=== PATIENT | male | born 1960 | race Caucasian/White ===

== ENCOUNTER 2016-10-14 15:32 | Inpatient (IN) ==
[2016-10-14 16:23] LABS: Basophils # 0.1 K/mcL (0.0-0.2); Basophils % 0.3 %; Eosinophils # 0.3 K/mcL (0.0-0.6); Eosinophils % 1.2 %; Hematocrit 34.7 % (37.5-50.1); Hemoglobin 11.7 g/dL (12.9-16.9); Immature Granulocytes % 2.2 % (0-4); Lymphocytes # 1.6 K/mcL (0.6-4.6); Mean Corpuscular HGB Conc 33.7 g/dL (31.6-35.5); Mean Corpuscular Hemoglobin 30.1 pg (28.0-33.3); Mean Corpuscular Volume 89.2 fL (83.0-100.0); Mean Platelet Volume 9.3 fL (9.4-12.4); Monocytes # 1.5 K/mcL (0.0-1.3); Monocytes % 6.6 %; Neutrophils # 18.6 K/mcL (1.6-8.9); Platelet Count 395 K/mcL (140-400); Red Blood Count 3.89 M/mcL (4.19-5.50); Red Cell Distribution Width 13.6 % (11.5-14.5); Segmented Neutrophils % 82.7 %
[2016-10-14 16:29] LABS: INR 1.4; Prothrombin Time 15.2 Seconds (9.4-12.1)
[2016-10-14 16:34] LABS: BUN/Creatinine Ratio 21 (6-26); Blood Urea Nitrogen 16 mg/dL (8-26); Calcium 8.8 mg/dL (8.6-10.8); Carbon Dioxide 25 mEq/L (19-29); Chloride 101 mEq/L (98-109); Glucose 139 mg/dL (70-99); Osmolality,Calculated 283 (280-300); Potassium 3.4 mEq/L (3.5-4.5); Sodium 135 mEq/L (136-145); eGFR For African Americans > 60 (> 60); eGFR For Non-African Americans > 60 (> 60)
--- NOTE | 2016-10-14 16:41 | Emergency Department Note ---
Disposition Clinical Impression: Liver masses Abdominal mass Qualifiers: Abdominal location: left lower quadrant Qualified Code(s): R19.04 - Left lower quadrant abdominal swelling, mass and lump Disposition: Admitted As Inpatient Condition: Fair Abdominal Pain HPI - General Chief Complaint: ED Abdominal Pain Stated Complaint: abdominal mass Time Seen by Provider: 10/14/16 15:43 Source: patient - History of Present Illness HPI Narrative: 56 yo male presenting with complaint of belly pain, persistent pain,weightloss, poor oral intake for the past few months. Stated that he saw his primary care physician today who ordered a CAT scan of his abdomen. CAT scan came back that he had a mass, and was directed to come to the ER. Denies any nausea vomiting, diarrhea. Pt Subjective Complaint: abdominal pain Onset (ago): month(s) Consistency: constant Location: [facility] Pain Severity: mild Pain Scale: 2 - Related Data Home Medications Medication Instructions Recorded Confirmed Naproxen [EC-Naprosyn] 500 mg PO BID PRN 10/14/16 10/14/16 Allergies Allergy/AdvReac Type Severity Reaction Status Date / Time No Known Allergies Allergy Verified 05/11/16 10:40 Constitutional: Denies: fever, chills Cardiovascular: Denies: chest pain, palpitations Respiratory: Denies: cough, dyspnea Gastrointestinal: Reports: abdominal pain. Denies: nausea, vomiting, diarrhea Genitourinary: Denies: urgency, dysuria Musculoskeletal: Reports: back pain Abdominal Pain PMH - Past Medical History Medical history: Reports: cancer Male Surgical History: Reports: other Psychiatric history: Reports: no psych history - Social History Smoking status: Current every day smoker Alcohol use: Reports: occasionally Drug use: Reports: none Physical Exam - General Limitations: no limitations General appearance: alert, in no apparent distress - Head Head exam: atraumatic, normocephalic, normal inspection - Eye Eye exam: Present: normal appearance, PERRL, EOMI - Expanded Eye Exam Pupils: Left: reactive - ENT ENT exam: normal exam, normal oropharynx, mucous membranes moist - Expanded ENT Exam External ear exam: Present: normal external inspection Mouth exam: Present: normal external inspection Teeth exam: Present: normal inspection Throat exam: Present: normal inspection - Neck Neck exam: Present: normal inspection, full ROM, trachea midline - Chest Chest inspection: Present: normal inspection, symmetric chest wall rise - Respiratory Respiratory exam: Present: normal lung sounds bilaterally - Cardiovascular Cardiovascular exam: Present: regular rate, normal rhythm, normal heart sounds - Abdominal Exam Abdominal exam: Present: soft, tenderness. Absent: distention, guarding, rebound, rigidity - Extremities Exam Extremities exam: Present: normal inspection, full ROM. Absent: tenderness, pedal edema - Expanded Upper Extremity Exam Vascular exam: Normal: capillary refill, radial pulse - Expanded Lower Extremity Exam Neurovascular/Tendon exam: Absent: motor deficit, sensory deficit, tendon deficit - Back Exam Back exam: Present: normal inspection, full ROM. Absent: tenderness - Neurological Exam Neurological exam: Present: alert, oriented X3 - Expanded Neurological Exam Patient oriented to: Present: person, place, time Coma Scale Eye Opening: Spontaneous Coma Scale Motor Response: Obeys Commands Coma Scale Verbal Response: Oriented Coma Scale Total: 15 - Psychiatric Psychiatric exam: Present: normal affect, normal mood - Skin Skin exam: Present: warm, dry, intact, normal color Course Course Narrative: Patient presenting with complaint of left/epigastric abdominal pain on exam, stated that his symptoms for the past 2 months. He is also reported history of weight loss; patient abdomen is distended but is not acute. CAT scan ordered by a primary care physician shows probable colon cancer with metastases to the liver, and probable contained perforation. Patient is mentally intact, stable in the ED, afebrile; as noted previously abdomen is nonacute. We will get basic labs, IV antibiotics and contact surgery. - Reevaluation(s) Reevaluation #1: Pt admitted to surgery for tx Dr. WHITLOCK saw pt in the ED, wants admitted to A tele Vital Signs Temperature 98.0 F 10/14/16 15:37 Pulse Rate 111 10/14/16 15:37 Respiratory Rate 18 10/14/16 15:37 Blood Pressure 116/73 10/14/16 15:37 O2 Sat by Pulse Oximetry 97 10/14/16 15:37 Temperature 97.9 F 10/16/16 06:31 Pulse Rate 84 10/16/16 06:31 Respiratory Rate 16 10/16/16 06:31 Blood Pressure 105/61 10/16/16 06:31 O2 Sat by Pulse Oximetry 98 10/16/16 08:48 Oxygen Delivery Oxygen Delivery Room Air Abdominal Pain - Lab Data Result diagrams: 10/16/16 04:34 10/16/16 04:34 Lab Results 10/14/16 10/14/16 10/14/16 Range/Units 16:11 16:11 16:11 WBC 22.6 H (4.3-11.1) K/mcL RBC 3.89 L (4.19-5.50) M/mcL Hgb 11.7 L (12.9-16.9) g/dL Hct 34.7 L (37.5-50.1) % MCV 89.2 (83.0-100.0) fL MCH 30.1 (28.0-33.3) pg MCHC 33.7 (31.6-35.5) g/dL RDW 13.6 (11.5-14.5) % Plt Count 395 (140-400) K/mcL MPV 9.3 L (9.4-12.4) fL Immature Gran % 2.2 (0-4) % Seg Neutrophils % 82.7 % Lymphocytes % 7.0 % Monocytes % 6.6 % Eosinophils % 1.2 % Basophils % 0.3 % Neutrophils # 18.6 H (1.6-8.9) K/mcL Lymphocytes # 1.6 (0.6-4.6) K/mcL Monocytes # 1.5 H (0.0-1.3) K/mcL Eosinophils # 0.3 (0.0-0.6) K/mcL Basophils # 0.1 (0.0-0.2) K/mcL PT 15.2 H (9.4-12.1) Seconds INR 1.4 APTT 29.0 (26.0-36.0) Seconds Sodium 135 L (136-145) mEq/L Potassium 3.4 L (3.5-4.5) mEq/L Chloride 101 (98-109) mEq/L Carbon Dioxide 25 (19-29) mEq/L BUN 16 (8-26) mg/dL Creatinine 0.77 (0.72-1.25) mg/dL Est GFR ( Amer) > 60 (> 60) Est GFR (Non-Af Amer) > 60 (> 60) BUN/Creatinine Ratio 21 (6-26) Glucose 139 H (70-99) mg/dL Calculated Osmolality 283 (280-300) Lactic Acid (0.5-2.2) mmol/L Calcium 8.8 (8.6-10.8) mg/dL Phosphorus (2.3-4.7) mg/dL Magnesium (1.6-2.6) mg/dL Total Bilirubin (0.2-1.2) mg/dL Direct Bilirubin (0.0-0.5) mg/dL Indirect Bilirubin (0.0-1.2) mg/dL AST (5-34) Units/L ALT (0-55) Units/L Alkaline Phosphatase (38-126) Units/L Troponin I (0-0.03) ng/mL Serum Total Protein (6.0-8.3) g/dL Albumin (3.5-5.0) g/dL Globulin (2.4-3.5) g/dL Albumin/Globulin Ratio (1.1-2.2) 10/14/16 10/14/16 10/14/16 Range/Units 17:48 17:48 17:48 WBC (4.3-11.1) K/mcL RBC (4.19-5.50) M/mcL Hgb (12.9-16.9) g/dL Hct (37.5-50.1) % MCV (83.0-100.0) fL MCH (28.0-33.3) pg MCHC (31.6-35.5) g/dL RDW (11.5-14.5) % Plt Count (140-400) K/mcL MPV (9.4-12.4) fL Immature Gran % (0-4) % Seg Neutrophils % % Lymphocytes % % Monocytes % % Eosinophils % % Basophils % % Neutrophils # (1.6-8.9) K/mcL Lymphocytes # (0.6-4.6) K/mcL Monocytes # (0.0-1.3) K/mcL Eosinophils # (0.0-0.6) K/mcL Basophils # (0.0-0.2) K/mcL PT (9.4-12.1) Seconds INR APTT (26.0-36.0) Seconds Sodium (136-145) mEq/L Potassium (3.5-4.5) mEq/L Chloride (98-109) mEq/L Carbon Dioxide (19-29) mEq/L BUN (8-26) mg/dL Creatinine (0.72-1.25) mg/dL Est GFR ( Amer) (> 60) Est GFR (Non-Af Amer) (> 60) BUN/Creatinine Ratio (6-26) Glucose (70-99) mg/dL Calculated Osmolality (280-300) Lactic Acid 1.0 (0.5-2.2) mmol/L Calcium (8.6-10.8) mg/dL Phosphorus 3.5 (2.3-4.7) mg/dL Magnesium 1.9 (1.6-2.6) mg/dL Total Bilirubin 2.4 H (0.2-1.2) mg/dL Direct Bilirubin 1.8 H (0.0-0.5) mg/dL Indirect Bilirubin 0.6 (0.0-1.2) mg/dL AST 23 (5-34) Units/L ALT 32 (0-55) Units/L Alkaline Phosphatase 408 H (38-126) Units/L Troponin I 0.01 (0-0.03) ng/mL Serum Total Protein 6.1 (6.0-8.3) g/dL Albumin 2.0 L (3.5-5.0) g/dL Globulin 4.1 H (2.4-3.5) g/dL Albumin/Globulin Ratio 0.5 L (1.1-2.2)
[2016-10-14] MEDS ORDERED: Piperacillin/Tazobactam 4.5 GM in D5% in Water (Mini-Bag+) 100 ML IVPB ONE (16:43)
--- NOTE | 2016-10-14 17:07 | Emergency Department Note ---
START Narrative - START START: I examined this patient and my medical decision-making was reviewed with the FLEX O WRITER OPERATOR/PA/Advanced Practice Nurse/Resident Physician. I agree with the documented findings, disposition and treatment plan as described except to the extent set forth below. Patient to the emergency department with a chief complaint of Misha pain. He saw his primary care physician who ordered an outpatient CT. It showed a mass and a possible perforation. He sent in for admission. On exam he has left lower quadrant tenderness. Plan. Patient tachycardic. Elevated white blood cell count mid-twenties. He meets sepsis criteria. Kasandrasyn ordered. Surgery consult and admission. Patient received surgery consult on department. Admitted to their service.
[2016-10-14] MEDS: 0.9 % Sodium Chloride 1,000 ML IVC SCH ×3 (17:36→20:43)
[2016-10-14] MEDS ORDERED: Nicotine 7 MG PATCH.TD24 TD SCH (18:00)
[2016-10-14 18:15] LABS: Albumin/Globulin Ratio 0.5 (1.1-2.2); Bilirubin,Direct 1.8 mg/dL (0.0-0.5); Bilirubin,Indirect 0.6 mg/dL (0.0-1.2); Bilirubin,Total 2.4 mg/dL (0.2-1.2); Globulin 4.1 g/dL (2.4-3.5); Magnesium 1.9 mg/dL (1.6-2.6); Phosphorous 3.5 mg/dL (2.3-4.7); Total Protein 6.1 g/dL (6.0-8.3)
[2016-10-14] MEDS ORDERED: *HR* LORazepam 2 MG/ML VIAL IVP PRN (20:05)
[2016-10-14] MEDS ORDERED: Naloxone 0.4 MG/ML INJ IVP PRN (20:05)
[2016-10-14] MEDS ORDERED: *HR* Metoprolol 5 MG/5 ML VIAL IVP PRN (20:05)
[2016-10-14] MEDS ORDERED: Ondansetron 4 MG/2 ML VIAL IVP PRN (20:05)
[2016-10-14] MEDS: *HR* Heparin 5,000 UNIT/ML VIAL SQ SCH (23:18)
[2016-10-14] MEDS: Piperacillin/Tazobactam 3.375 GM in D5% in Water (Mini-Bag+) 100 ML IVPB SCH (23:18)
[2016-10-15] MEDS ORDERED: *HR* Metoprolol 5 MG/5 ML VIAL IVP SCH
[2016-10-15 05:13] LABS: Basophils % 0.2 %; Eosinophils # 0.2 K/mcL (0.0-0.6); Eosinophils % 0.9 %; Hematocrit 33.3 % (37.5-50.1); Immature Granulocytes % 1.6 % (0-4); Lymphocytes # 1.5 K/mcL (0.6-4.6); Lymphocytes % 7.6 %; Mean Corpuscular Hemoglobin 29.4 pg (28.0-33.3); Mean Platelet Volume 9.8 fL (9.4-12.4); Monocytes # 1.1 K/mcL (0.0-1.3); Monocytes % 5.5 %; Neutrophils # 16.6 K/mcL (1.6-8.9); Platelet Count 417 K/mcL (140-400); Red Blood Count 3.74 M/mcL (4.19-5.50); Red Cell Distribution Width 13.8 % (11.5-14.5); Segmented Neutrophils % 84.2 %
[2016-10-15 05:20] LABS: BUN/Creatinine Ratio 11 (6-26); Blood Urea Nitrogen 7 mg/dL (8-26); Calcium 8.3 mg/dL (8.6-10.8); Carbon Dioxide 20 mEq/L (19-29); Chloride 108 mEq/L (98-109); Glucose 101 mg/dL (70-99); Magnesium 1.9 mg/dL (1.6-2.6); Osmolality,Calculated 280 (280-300); Phosphorous 2.7 mg/dL (2.3-4.7); Sodium 136 mEq/L (136-145); eGFR For African Americans > 60 (> 60); eGFR For Non-African Americans > 60 (> 60)
[2016-10-15 05:41] LABS: Carcinoembryonic Antigen 3.2 ng/mL (0-5.0)
[2016-10-15] MEDS: *HR* Morphine 2 MG/ML SYRINGE IVP PRN ×4 (06:05→15:30)
[2016-10-15] MEDS: Piperacillin/Tazobactam 3.375 GM in D5% in Water (Mini-Bag+) 100 ML IVPB SCH ×2 (08:44→16:23)
[2016-10-15] MEDS: 0.9 % Sodium Chloride 1,000 ML IVC SCH ×2 (08:44→23:02)
[2016-10-15] MEDS: *HR* Heparin 5,000 UNIT/ML VIAL SQ SCH ×2 (08:45→16:22)
[2016-10-15] MEDS ORDERED: Nicotine 7 MG PATCH.TD24 TD SCH (09:00)
[2016-10-15] MEDS ORDERED: Pantoprazole 40 MG VIAL IVP SCH (09:00)
--- NOTE | 2016-10-15 09:05 | Oncology Inp Consult Note ---
Date of Encounter: 10/15/16 Time of Encounter: 07:00 Assessment and Plan (1) Abdominal mass Status: Acute Assessment and plan: Patient with sigmoid colon mass likely colon cancer with what appears to be liver metastatic disease. Due to contained perforation/inflammation-he is being scheduled for OR procedure today for palliative resection/colostomy. Clinically he appears to be stable. Will await pathology, discussed systemic treatment briefly with patient and family. On IV abx, leucocytosis-reactive/ infection. Hgb/Hct reasonable. Pain is fairly controlled with medications. Ct chest for completion of staging. Qualifiers: Abdominal location: left lower quadrant Qualified Code(s): R19.04 - Left lower quadrant abdominal swelling, mass and lump - Data of Consult Requesting Physician: Caitie Guaman MD Primary Care Provider: Alicja Aguila CNP - Consult Narrative Reason for consult: Sigmoid mass, liver lesions History of present illness: Mr. Covarrubias is a 56 year old male with medical history significant for right shoulder surgery for rotator cuff tear, arthritis, status post excision of cyst diagnosed with full-thickness skin graft closure in 2010-[facility], but the sigmoid colon mass and abnormal imaging report in the liver which was performed on 10/14 due to to make radiation abdominal discomfort as well as vomiting. He denies any rectal bleeding or constipation. Abdominal pain is mostly in the lower quadrant patient also reported a few days history of this but none recently was seen by PCP and hospitalized at abnormal CT imaging findings. Father had cancer of throat, sibling brain tumor. CT imaging abd 10/14/16- the sigmoid colon mass upto 3.2cm length suspected perforation due to extraluminal contrast/fluid collection?abcess and inflammatory changes extending bladder. Diverticulosis. Hepatic mets -rt sided largest upto 4.9cm He had abd tenderness localized and leucocytosis on Zosyn for contain perforation wo obvious signs of peritonitis. Patient reports no other symptoms except as noted above. Past Med Surg Social Fam HX - Past Medical History Medical history: cancer Psychiatric history: no psych history - Social History Smoking Status: Current every day smoker Packs per day: 1 Smokeless Tobacco Status: No Alcohol use: occasionally Drug use: none - Family History Grandmother History Unknown: Yes Medications and Allergies Naproxen [EC-Naprosyn] 500 mg PO BID PRN 10/14/16 [History] Allergies No Known Allergies Allergy (Verified 05/11/16 10:40) Review of systems: as in HPI Oncology - Exam - Constitutional Vitals: Temp Pulse Resp BP Pulse Ox 97.9 F 85 16 110/59 94 L 10/15/16 07:43 10/15/16 07:43 10/15/16 07:43 10/15/16 07:43 10/15/16 07:43 General appearance: no acute distress - Head Head exam: Present: atraumatic, normal inspection - Eye Eye exam: Present: sclera anicteric - ENT ENT exam: Present: mucous membranes moist - Neck Neck exam: Present: full ROM, normal inspection - Respiratory Respiratory exam: Present: CTAB - Cardiovascular Cardiovascular exam: Present: +S1, +S2 - GI/Abdominal GI/Abdominal exam: Present: soft Additional comments: non tender. NBS - Extremities Exam Additional comments: no pedal edema warm pulses+ - Neurological Exam Neurological exam: Present: alert, oriented X3 - Psychiatric Psychiatric exam: Present: normal affect Oncology - Results - Labs Labs: Short CBC 10/15/16 Range/Units 04:19 WBC 19.7 H (4.3-11.1) K/mcL Hgb 11.0 L (12.9-16.9) g/dL Hct 33.3 L (37.5-50.1) % Plt Count 417 H (140-400) K/mcL Neutrophils # 16.6 H (1.6-8.9) K/mcL BMP 10/15/16 04:19 Sodium 136 Potassium 4.0 Chloride 108 Carbon Dioxide 20 BUN 7 L Creatinine 0.65 L Glucose 101 H Calcium 8.3 L - Imaging and Cardiology CT scan - abdomen Status: image reviewed by me Consult Discharge Plan - Plan Referrals: Alicja Aguila, [employer] [Primary Care Provider] -
--- NOTE | 2016-10-15 10:28 | Electrocardiograph Report ---
[facility] Test Date: 2016-10-14 Pat Name: Jimbo Covarrubias Department: 103 Room: 3A47 Gender: M [employer] Rep: LEN : 1960 Requested By: Marianne See Order Number: [id number] Reading MD: Robert Gautam MD Measurements Intervals [place] Rate: 99 P: 65 IL: 125 QRS: -57 QRSD: 92 T: 56 QT: 345 QTc: 402 Interpretive Statements SINUS RHYTHM LEFT ANTERIOR FASCICULAR BLOCK Electronically Signed On 10-15-16 10:26:57 EST by Robert Gautam MD
--- NOTE | 2016-10-15 13:00 | General Surg History&Physical ---
Date of Encounter: 10/14/16 Time of Encounter: 17:30 Assessment and Plan (1) Perforated sigmoid colon Current Visit: Yes Status: Acute The assessment and plan as outlined above was discussed with the patient and/or family members who expressed understanding and agreement. All questions were answered. CAT scan results were discussed with the patient and his . Discussed that the CT scan appears to show us mass, likely malignant, in the sigmoid colon with signs of perforation including air and contrast within the abdominal cavity but contained. He has diverticulosis of the colon as well but does not appear to have diverticulitis at this time. I discussed that it is most likely that a sigmoid colon tumor has perforated and unfortunately these do not heal on their own but must be resected. Currently his abdominal pain is not significant, he is soft but tender and is not peritoneal. He will be admitted, started on IV antibiotics, kept nothing by mouth with bowel rest, and IV pain control began. We will reassess in the morning and discuss Sheila procedure at that time. (2) Neoplasm of sigmoid colon Current Visit: Yes Status: Acute The assessment and plan as outlined above was discussed with the patient and/or family members who expressed understanding and agreement. All questions were answered. CT scan results were discussed with the patient is , they understand that it appears there is a perforated sigmoid tumor with metastatic lesions to the colon. Will order CEA and called, oncology. (3) Tobacco abuse Current Visit: Yes Status: Acute The assessment and plan as outlined above was discussed with the patient and/or family members who expressed understanding and agreement. All questions were answered. Start nicotine patch (4) Leukocytosis Current Visit: Yes Status: Acute The assessment and plan as outlined above was discussed with the patient and/or family members who expressed understanding and agreement. All questions were answered. Leukocytosis is due to the perforated sigmoid tumor. We will start IV antibiotics and 10 white blood cell count. Qualifiers: Leukocytosis type: unspecified Qualified Code(s): D72.829 - Elevated white blood cell count, unspecified (5) Liver masses Current Visit: Yes Status: Acute The assessment and plan as outlined above was discussed with the patient and/or family members who expressed understanding and agreement. All questions were answered. Discussed with the patient is that his CT scan appears to have metastatic disease within the liver, primarily right-sided. He will need a liver biopsy at some point. History of Present Illness Chief complaint: abdominal pain HPI: Mr. Covarrubias is a 56 year old male who complains of approximately 3 weeks left to mid abdominal pain. He describes his abdominal pain is crampy and constant, it never stops. He has had nausea and vomiting daily anywhere from 1-3 episodes per day. He has had a decrease in appetite and by mouth intake secondary to the nausea and vomiting. He has had attended 12 pound weight loss over the last 3 weeks. He complains of a significant amount of sweats and chills but no obvious fevers. His last bowel movement was this morning and he denies any significant straining and no melena or hematochezia. The patient has never had a colonoscopy knee is no family history of colon cancer. He presented to his PCPs office with the complaint of abdominal pain and was referred for an outpatient CT scan. Is performed demonstrating multiple findings and was called and told to present to the ER by the PCP. CT scan of the abdomen and pelvis shows a sigmoid colon mass with contained perforation- with air and contrast. He appears to have masses within the liver consistent with metastatic disease. 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 Past Med Surg Social Fam HX - Past Medical History Source: patient Medical history: cancer (right nasal skin cancer) Psychiatric history: no psych history - Past Surgical History Surgical History: orthopedic, other (right rotator cuff repair, right carpal tunnel release), other (rigth nasal cancer resection) - Social History Smoking Status: Current every day smoker Packs per day: 1 Smokeless Tobacco Status: No Alcohol use: occasionally Drug use: none - Family History Grandmother History Unknown: Yes Medications and Allergies Naproxen [EC-Naprosyn] 500 mg PO BID PRN 10/14/16 [History] Allergies No Known Allergies Allergy (Verified 05/11/16 10:40) Review of Systems All systems PM: reviewed and no additional remarkable complaints except as stated All systems PM: A 10-system review of systems was performed and is negative for pertinent findings except as documented above in the HPI. General Surgery Exam Initial Vital Signs Temp Pulse Resp BP Pulse Ox 98.0 F 111 18 116/73 97 10/14/16 15:37 10/14/16 15:37 10/14/16 15:37 10/14/16 15:37 10/14/16 15:37 - General physical appearance moderate distress, moderate pain, cachectic - Eyes PERRL, normal ocular movement - ENT atraumatic, normocephalic - Neck trachea midline - Respiratory normal expansion, clear to auscultation - Cardiovascular Cardiovascular exam: Present: RRR, no murmurs/rubs/gallops - Abdomen Abdomen general surgery: Present: bowel sounds present, soft, tender ( midabdomen and LLQ, no rebound or guarding) - Integumentary Integumentary general surgery: Present: warm and dry, no abnormal pigmentation - Neurologic Present: CN 2-12 grossly intact - Musculoskeletal Present: normal posture - Psychiatric Psychiatric general surgery: Present: A&Ox3, speech is normal Results - Labs 10/15/16 04:19 10/15/16 04:19 Abnormal lab results WBC 19.7 K/mcL (4.3-11.1) H 10/15/16 04:19 RBC 3.74 M/mcL (4.19-5.50) L 10/15/16 04:19 Hgb 11.0 g/dL (12.9-16.9) L 10/15/16 04:19 Hct 33.3 % (37.5-50.1) L 10/15/16 04:19 Plt Count 417 K/mcL (140-400) H 10/15/16 04:19 Neutrophils # 16.6 K/mcL (1.6-8.9) H 10/15/16 04:19 PT 15.2 Seconds (9.4-12.1) H 10/14/16 16:11 BUN 7 mg/dL (8-26) L 10/15/16 04:19 Creatinine 0.65 mg/dL (0.72-1.25) L 10/15/16 04:19 Glucose 101 mg/dL (70-99) H 10/15/16 04:19 POC Glucose 103 (58-89) H 10/15/16 05:02 Calcium 8.3 mg/dL (8.6-10.8) L 10/15/16 04:19 Total Bilirubin 2.4 mg/dL (0.2-1.2) H 10/14/16 17:48 Direct Bilirubin 1.8 mg/dL (0.0-0.5) H 10/14/16 17:48 Alkaline Phosphatase 408 Units/L (38-126) H 10/14/16 17:48 Albumin 2.0 g/dL (3.5-5.0) L 10/14/16 17:48 Globulin 4.1 g/dL (2.4-3.5) H 10/14/16 17:48 Albumin/Globulin Ratio 0.5 (1.1-2.2) L 10/14/16 17:48 Diabetes panel 10/15/16 Range/Units 04:19 Sodium 136 (136-145) mEq/L Potassium 4.0 (3.5-4.5) mEq/L Chloride 108 (98-109) mEq/L Carbon Dioxide 20 (19-29) mEq/L BUN 7 L (8-26) mg/dL Creatinine 0.65 L (0.72-1.25) mg/dL Glucose 101 H (70-99) mg/dL Calcium 8.3 L (8.6-10.8) mg/dL Calcium panel 10/15/16 Range/Units 04:19 Calcium 8.3 L (8.6-10.8) mg/dL Phosphorus 2.7 (2.3-4.7) mg/dL Pituitary panel 10/15/16 Range/Units 04:19 Sodium 136 (136-145) mEq/L Potassium 4.0 (3.5-4.5) mEq/L Chloride 108 (98-109) mEq/L Carbon Dioxide 20 (19-29) mEq/L BUN 7 L (8-26) mg/dL Creatinine 0.65 L (0.72-1.25) mg/dL Glucose 101 H (70-99) mg/dL Calcium 8.3 L (8.6-10.8) mg/dL Adrenal panel 10/15/16 Range/Units 04:19 Sodium 136 (136-145) mEq/L Potassium 4.0 (3.5-4.5) mEq/L Chloride 108 (98-109) mEq/L Carbon Dioxide 20 (19-29) mEq/L BUN 7 L (8-26) mg/dL Creatinine 0.65 L (0.72-1.25) mg/dL Glucose 101 H (70-99) mg/dL Calcium 8.3 L (8.6-10.8) mg/dL All other labs normal. - Imaging CT scan - abdomen: report reviewed, image reviewed CT scan - pelvis: report reviewed, image reviewed
--- NOTE | 2016-10-15 15:42 | Anesthesia Evaluation PreOp ---
Date of Encounter: 10/15/16 Time of Encounter: 15:40 - Past History Planned Operation: ex lap caro's/perf sigmoid colon Cardiac History: Denies any Significant Hx Pulmonary History: Smoker, Snore Other Medical History: Hepatic (liver masses), Other (sigmoid mass) Anesthesia History: No Prior Anesthetic Complications, Past Anesthesia (rcr, rctr, r nasal rsxn (skin ca)) Alcohol Use: occasionally Drug use: none Medications and Allergies Naproxen [EC-Naprosyn] 500 mg PO BID PRN 10/14/16 [History] Allergies No Known Allergies Allergy (Verified 05/11/16 10:40) - Meds/Allergy Pre-op Review Medications Reviewed: Yes (zosyn next dose at 20:50) Allergies Reviewed: Yes Beta Blockers on Current Med List: No Anesthesia Results - Labs 10/15/16 04:19 10/15/16 04:19 - Imaging EKG: report reviewed (, crescencio) Anesthesia Exam Height: 1.63 Weight: 61 NPO (# of Hours): >8 - HEENT Pupil (Motor): Pupils equal, EOMI Mallampati: I Teeth: Poor dentition Oral Opening: Greater than 3 - PROGRAM DIRECTOR LOC: Oriented PROGRAM DIRECTOR Motor: Normal RUE, Normal LUE, Normal RLE, Normal LLE, Normal Face PROGRAM DIRECTOR Sensory: Normal: RUE, LUE, RLE, LLE, Face - Cardiac Rhythm: Regular Murmur: None - Pulmonary Breath Sounds: bilateral Clear Respiratory Effort: Symmetrical Anesthesia Assess/Plan ASA Score: 3 (cancer) Modified Dayanna Scale for Level of Consciousness: Cooperative, oriented, and tranquil Anesthetic Plan: General Monitoring Plan: Standard Monitors Recovery Plan: PACU
[2016-10-15] MEDS ORDERED: *HR* Propofol 200 MG/20 ML VIAL IVP ONE (16:43)
[2016-10-15] MEDS ORDERED: *HR* FentaNYL (PF) 100 MCG/2 ML VIAL ONE ×2 (16:43→17:36)
[2016-10-15] MEDS ORDERED: Ondansetron 4 MG/2 ML VIAL ONE (16:45)
[2016-10-15] MEDS ORDERED: Lidocaine -MPF 2% 2 ML VIAL ONE (16:45)
[2016-10-15] MEDS ORDERED: Dexamethasone 4 MG/ML VIAL ONE (16:45)
[2016-10-15] MEDS ORDERED: *HR* Rocuronium Bromide 50 MG/5 ML VIAL ONE ×2 (16:46→18:04)
[2016-10-15] MEDS ORDERED: Propofol 500 MG/50 ML INFUS..BTL ONE ×2 (16:52→18:27)
[2016-10-15] MEDS ORDERED: Albumin Human 5% 0 GM/0 ML VIAL ONE (16:55)
[2016-10-15] MEDS ORDERED: Dexmedetomidine HCl 200 MCG/50 ML MLS IVC ONE (16:56)
[2016-10-15] MEDS ORDERED: Lidocaine -MPF 4% 5 ML AMPUL ONE (17:14)
[2016-10-15] MEDS ORDERED: *HR* Phenylephrine 10 MG/ML VIAL ONE (17:38)
[2016-10-15] MEDS ORDERED: *HR* Remifentanil 2 MG VIAL IVP ONE (17:53)
[2016-10-15] MEDS ORDERED: *HR* Promethazine 25 MG/ML VIAL IVP PRN (18:22)
[2016-10-15] MEDS ORDERED: *HR* HYDROmorphone (PF) 1 MG/ML SYRINGE IVP PRN (18:22)
[2016-10-15] MEDS ORDERED: Neostigmine Methylsulfate 3 MG/3 ML SYRINGE ONE (19:15)
--- NOTE | 2016-10-15 19:52 | Operative Note ---
Date of procedure: 10/15/16 Pre-op diagnosis: perforated sigmoid colon mass Post-op diagnosis: same Procedure: Exploratory laparotomy, takedown splenic flexure, sigmoid resection, colostomy, appendix Complications: none immediate Anesthesia: ALFREDO Surgeon: Caitie Guaman Scientific Database Curator: Lara Brewer Estimated blood loss (cc): 30 IV fluids (cc): 1,400 Urine output (cc): 275 Specimen: sigmoid colon, appendix Condition: stable Disposition: PACU Procedure in Detail: Patient was brought to the operating suite and placed supine on the operating table. Sign in was performed and everyone was in agreement. Anesthesia was induced and patient was endotracheally intubated by anesthesia without incident. A Andrade catheter was placed by the circulating nurse and an NG tube was placed by anesthesia. The abdomen was shaved and then prepped and draped in the usual sterile fashion. A timeout was performed again everyone was in agreement. A midline incision through the skin and the subcutaneous tissue around the umbilicus was made with 15 blade. We dissected through the subcutaneous tissue through the linea alba fascia with the Bovie. Bookwalter was placed for retraction. There was a hard firm sigmoid colon mass which was densely adherent to the left lateral abdominal wall at their also 2 separate loops of small bowel that were densely adherent to this mass as well. Using Metzenbaum scissors the 2 loops of small bowel were sharply taken down off the mass. An abscess was encountered and pus was present in the abscess, which was suctioned free from the abdomen. The sigmoid colon mass was taken down off the intra-abdominal wall sharply with Metzenbaum scissors and with the Bovie. At the left lateral abdominal wall the colon was taken down at the white line of Toldt with the Bovie coming down around over the iliacs down to the rectum. The left ureter was identified. An area at the distal left colon was chosen for transection and an opening in the mesentery beneath the colon was made with the Bovie. The colon was then transected with a linear BERKLEY-75 stapler using a blue load. The mesial colon was then taken down including the left colic vessels with the impact LigaSure and a proximal distal direction down to the proximal rectum. The proximal rectum was transected with a contour stapler blue load. The specimen was placed off to the back table for pathology and the distal sigmoid proximal rectum was marked with a stitch. The proximal rectum that remained within the pelvis was marked with a 2-0 Prolene [id number] stitch. The left colon was continued to be taken off the left lateral abdominal wall at the white line of Toldt using gentle blunt dissection and the Bovie and the splenic flexure was then taken down with the Bovie. This provided adequate length for the left colon to create the colostomy. The abdomen was copiously irrigated with sterile saline. The appendix was located and a right angle was placed beneath the appendix at the base of the cecum creating an opening in the mesentery. The appendix was transected at the base of the cecum within linear BERKLEY-75 stapler using a blue load. The mesoappendix was transected with the impact LigaSure. Prior to surgery the patient was marked for potential colostomy placement while sitting in a bed. The inferior previously marked potential colostomy site was chosen to create the colostomy. Kockers are placed on the left lateral abdominal wall linea alba fascia for retraction. A circular incision through the skin and the subcutaneous tissue was made with a 15 blade above the left lateral rectus. The Bovie was used to dissect the skin off the subcutaneous tissue. Longitudinal incision in the anterior rectus fascia was made with a Bovie and the rectus muscle fibers split in the direction of the fibers with a Talya, which then punctured through the posterior rectus sheath. The newly created opening in the rectus was gently manipulated to 2 fingers breaths. The left colon was then pulled through the opening in the rectus with a [place]illa. There was adequate length for the colostomy. The abdominal wall at the midline was closed with 2 separate #1 non- looped running PDS stitches meeting in the middle. The subcutaneous tissue was copiously irrigated with sterile saline. The skin was then closed with balbir. We then turned our attention to fashioning the ostomy. Sterile towels were placed around the left abdomen. Babcocks were placed across the left colon staple line and the staple line transected with heavy curved Metzenbaums. There was copious bleeding from the cut edge which was stopped with the Bovie. The colostomy was fashioned with 3-0 Vicryl interrupted stitches ensuring full thickness of the colon wall to the subcutaneous tissue, circumferentially. A colostomy faceplate and bag was placed. Sterile 4 x 4's and Medipore tape were placed as a midline dressing. All lap and instrument counts were correct at the end of the case. The patient tolerated the procedure well. Patient was awoken in the operating suite and extubated by anesthesia. The Andrade catheter and NG tube remained. Patient was taken to PACU in stable condition.
[2016-10-15] MEDS ORDERED: Ringers Solution, Lactated 1,000 ML ONE (20:22)
[2016-10-15] MEDS ORDERED: *HR* HYDROmorphone 2 MG/ML SYRINGE ONE (20:29)
--- NOTE | 2016-10-15 20:30 | Anesthesia Evaluation Post Op ---
Date of Encounter: 10/15/16 Time of Encounter: 20:35 - Vital Signs Vital Signs: Vital Signs/O2 Sat/Glucose, Most Current Temp Pulse Resp BP Pulse Ox 10/15/16 20:28 106 16 95 10/15/16 20:18 98.5 F 103 16 130/82 94 L 10/15/16 20:08 104 16 133/79 95 10/15/16 19:58 100 16 122/79 96 10/15/16 19:48 98.4 F 92 16 129/75 100 - Lungs Lungs: Clear Ascult./Percussion - Airway Airway: Non-obstructed - Cardiovascular Regular Rate - Mental Status Mental Status: Alert & Oriented, Answers Appropriately - Pain Pain Scale: 0 - Nausea Vomiting Nausea Vomiting: Not Present - Hydration Hydration: NPO - Discharge PostOp Status: Transfer Patient to floor
[2016-10-15] MEDS ORDERED: *HR* Metoprolol 5 MG/5 ML VIAL IVP PRN (20:34)
[2016-10-15] MEDS ORDERED: Naloxone 0.4 MG/ML INJ IVP PRN (20:34)
[2016-10-15] MEDS ORDERED: Ondansetron 4 MG/2 ML VIAL IVP PRN (20:34)
[2016-10-15] MEDS ORDERED: Promethazine 25 MG in 0.9 % Sodium Chloride 50 ML IV PRN (20:34)
[2016-10-15] MEDS: *HR* HYDROmorphone 20 MG/20 ML PCA IVC PRN (21:34)
[2016-10-16] MEDS: Piperacillin/Tazobactam 3.375 GM in D5% in Water (Mini-Bag+) 100 ML IVPB SCH ×3 (00:09→15:24)
[2016-10-16] MEDS: *HR* Heparin 5,000 UNIT/ML VIAL SQ SCH ×3 (00:09→15:23)
[2016-10-16 05:17] LABS: Basophils # 0.1 K/mcL (0.0-0.2); Basophils % 0.2 %; Hematocrit 35.5 % (37.5-50.1); Hemoglobin 11.2 g/dL (12.9-16.9); Immature Granulocytes % 2.5 % (0-4); Lymphocytes % 4.7 %; Mean Corpuscular HGB Conc 31.5 g/dL (31.6-35.5); Mean Corpuscular Hemoglobin 29.2 pg (28.0-33.3); Mean Corpuscular Volume 92.7 fL (83.0-100.0); Mean Platelet Volume 9.7 fL (9.4-12.4); Monocytes # 0.8 K/mcL (0.0-1.3); Monocytes % 3.8 %; Neutrophils # 19.2 K/mcL (1.6-8.9); Platelet Count 430 K/mcL (140-400); Red Blood Count 3.83 M/mcL (4.19-5.50); Segmented Neutrophils % 88.8 %
[2016-10-16 05:46] LABS: BUN/Creatinine Ratio 16 (6-26); Blood Urea Nitrogen 10 mg/dL (8-26); Calcium 8.4 mg/dL (8.6-10.8); Carbon Dioxide 25 mEq/L (19-29); Chloride 106 mEq/L (98-109); Glucose 127 mg/dL (70-99); Magnesium 2.6 mg/dL (1.6-2.6); Osmolality,Calculated 287 (280-300); Potassium 4.6 mEq/L (3.5-4.5); Sodium 138 mEq/L (136-145); eGFR For African Americans > 60 (> 60); eGFR For Non-African Americans > 60 (> 60)
[2016-10-16 06:02] LABS: Phosphorous 5.2 mg/dL (2.3-4.7)
[2016-10-16] MEDS: Nicotine 21 MG PATCH.TD24 TD SCH (08:33)
[2016-10-16] MEDS: Pantoprazole 40 MG VIAL IVP SCH (08:34)
[2016-10-16] MEDS ORDERED: D10% in Water 500 ML IV PRN (12:02)
[2016-10-16] MEDS: 0.9 % Sodium Chloride 1,000 ML IVC SCH ×2 (12:04→17:44)
[2016-10-16] MEDS ORDERED: Lidocaine -MPF 1% 5 ML AMPUL INFILT ONE (14:09)
--- NOTE | 2016-10-16 15:07 | General Surgery Progress Note ---
<Lina Valadez Susan - Last Filed: 10/16/16 15:12> Date of Encounter: 10/16/16 Time of Encounter: 12:00 - Assessment and Plan (1) Perforated sigmoid colon Current Visit: Yes Status: Acute POD #1 Exploratory laparotomy, takedown splenic flexure, sigmoid resection, colostomy, appendix NG tube removed NPO except for ice chips Await return of bowel function Continue supportive care/pain control- SEED SPECIALIST pump IV fluids Start TPN therapy today- total fluid rate 80ml/hour (LUCIA + TPN) PICC line placement IV antibiotics Repeat labs in the am Pathology pending D/C booker catheter in the am 0700 (2) Neoplasm of sigmoid colon Current Visit: Yes Status: Acute POD #1 Exploratory laparotomy, takedown splenic flexure, sigmoid resection, colostomy, appendix NG tube removed NPO except for ice chips Await return of bowel function Continue supportive care/pain control- SEED SPECIALIST pump IV fluids Start TPN therapy today- total fluid rate 80ml/hour (LUCIA + TPN) PICC line placement IV antibiotics Repeat labs in the am Pathology pending (3) Leukocytosis Current Visit: Yes Status: Acute 19.7>21.7 Continue IV antibiotics Repeat labs in the am Qualifiers: Leukocytosis type: unspecified Qualified Code(s): D72.829 - Elevated white blood cell count, unspecified (4) Liver masses Current Visit: Yes Status: Acute Liver biopsy in the future (5) DVT prophylaxis Current Visit: Yes Status: Acute Continue heparin 5,000 units SQ twice daily for DVT prophylaxis EPCDs to bilateral lower extremities Subjective Patient reports: still having pain, no flatus, no bowel movement, afebrile, other (Patient resting comfortably. SEED SPECIALIST is controlling pain at this time.) Objective Vital Signs - Last 8 Hours Temp Pulse Resp BP Pulse Ox 10/16/16 14:38 97.6 F 92 14 121/70 95 10/16/16 10:37 97.8 F 82 15 98/64 93 L 10/16/16 08:48 98 Intake and Output 10/15/16 10/16/16 10/16/16 23:59 07:59 15:59 Intake Total 100 / 100 1000 / 1000 Output Total 375 / 375 550 / 550 505 / 505 Balance -375 / -375 -450 / -450 495 / 495 Intake: IV Fluids 100 / 100 1000 / 1000 0.9 % Sodium Chloride 1, 1000 / 1000 000 ML @ 80 mls/hr IVC . [id number] [facility] Rx#: [id number] Zosyn 3.375 GM In 100 / 100 Dextrose 5% (Minibag+) 100 ML 100 ML @ 25 mls/hr IVPB Q8HR [facility] Rx#: [id number] Oral 0 / 0 Output: Estimated Blood Loss 25 / 25 Urine Amount (Catheter) 350 / 350 Catheter 550 / 550 505 / 505 Gastric Drainage 0 / 0 Other: Meal NPO Blood Glucose* 111 138 103 - General physical appearance well developed, no distress, moderate pain - Eyes normal ocular movement - ENT normal mucosa, atraumatic, normocephalic - Neck Neck exam: trachea midline - Respiratory normal respiratory effort, clear to auscultation - Cardiovascular Cardiovascular exam: Present: RRR - Abdomen Abdomen: Present: soft, tender (expected post-operative discomfort), wound ( Colostomy pink and moist (no drainage or flatus noted); NG tube removed) - Incision Incision: Present: clean and dry, intact - Genitourinary other (booker catheter to SD with sethi, yellow urine) - Integumentary no rash - Neurologic CN 2-12 grossly intact - Psychiatric oriented to time, oriented to person, oriented to place, speech is normal, memory intact - Labs 10/16/16 04:34 10/16/16 04:34 Diabetes panel 10/16/16 Range/Units 04:34 Sodium 138 (136-145) mEq/L Potassium 4.6 H (3.5-4.5) mEq/L Chloride 106 (98-109) mEq/L Carbon Dioxide 25 (19-29) mEq/L BUN 10 (8-26) mg/dL Creatinine 0.62 L (0.72-1.25) mg/dL Glucose 127 H (70-99) mg/dL Calcium 8.4 L (8.6-10.8) mg/dL Calcium panel 10/16/16 Range/Units 04:34 Calcium 8.4 L (8.6-10.8) mg/dL Phosphorus 5.2 H D (2.3-4.7) mg/dL Pituitary panel 10/16/16 Range/Units 04:34 Sodium 138 (136-145) mEq/L Potassium 4.6 H (3.5-4.5) mEq/L Chloride 106 (98-109) mEq/L Carbon Dioxide 25 (19-29) mEq/L BUN 10 (8-26) mg/dL Creatinine 0.62 L (0.72-1.25) mg/dL Glucose 127 H (70-99) mg/dL Calcium 8.4 L (8.6-10.8) mg/dL Adrenal panel 10/16/16 Range/Units 04:34 Sodium 138 (136-145) mEq/L Potassium 4.6 H (3.5-4.5) mEq/L Chloride 106 (98-109) mEq/L Carbon Dioxide 25 (19-29) mEq/L BUN 10 (8-26) mg/dL Creatinine 0.62 L (0.72-1.25) mg/dL Glucose 127 H (70-99) mg/dL Calcium 8.4 L (8.6-10.8) mg/dL - VTE Documentation of Mechanical Device: Intermittent pneumatic compression device Consult Discharge Plan - Plan Referrals: Alicja Aguila, RAIL GRINDER [Primary Care Provider] - - Attending Attestation I examined this patient and my medical decision-making was reviewed with the JUMPBASTING COLLAR BASTER/PA/Advanced Practice Nurse/Resident Physician. I agree with the documented findings, disposition and treatment plan as described except to the extent set forth below. <Caitie Guaman - Last Filed: 10/16/16 18:19> - Assessment and Plan (1) Perforated sigmoid colon Current Visit: Yes Status: Acute (2) Neoplasm of sigmoid colon Current Visit: Yes Status: Acute (3) Tobacco abuse Current Visit: Yes Status: Acute (4) Leukocytosis Current Visit: Yes Status: Acute Qualifiers: Leukocytosis type: unspecified Qualified Code(s): D72.829 - Elevated white blood cell count, unspecified (5) Liver masses Current Visit: Yes Status: Acute Subjective Patient reports: no new complaints, still having pain, no flatus, no bowel movement, afebrile Objective Vital Signs - Last 8 Hours Temp Pulse Resp BP Pulse Ox 10/16/16 14:38 97.6 F 92 14 121/70 95 10/16/16 10:37 97.8 F 82 15 98/64 93 L Intake and Output 10/16/16 10/16/16 10/16/16 07:59 15:59 23:59 Intake Total 100 / 100 1100 / 1100 Output Total 550 / 550 505 / 505 Balance -450 / -450 595 / 595 Intake: IV Fluids 100 / 100 1100 / 1100 0.9 % Sodium Chloride 1, 1000 / 1000 000 ML @ 80 mls/hr IVC . [id number] [facility] Rx#: [id number] Zosyn 3.375 GM In 100 / 100 100 / 100 Dextrose 5% (Minibag+) 100 ML 100 ML @ 25 mls/hr IVPB Q8HR [facility] Rx#: [id number] Oral 0 / 0 Output: Catheter 550 / 550 505 / 505 Gastric Drainage 0 / 0 Other: Meal NPO Blood Glucose* 138 103 120 - General physical appearance well developed, no distress, moderate pain - ENT normal mucosa, atraumatic, normocephalic - Neck Neck exam: trachea midline - Respiratory normal expansion, clear to auscultation - Cardiovascular Cardiovascular exam: Present: RRR - Abdomen Abdomen: Present: soft, tender, wound. Absent: bowel sounds present, guarding, rebound - Incision Incision: Present: clean and dry, intact - Genitourinary other - Integumentary no rash, no growths - Neurologic CN 2-12 grossly intact - Musculoskeletal normal posture - Psychiatric oriented to time, oriented to person, memory intact - Labs 10/16/16 04:34 10/16/16 04:34 Diabetes panel 10/16/16 Range/Units 04:34 Sodium 138 (136-145) mEq/L Potassium 4.6 H (3.5-4.5) mEq/L Chloride 106 (98-109) mEq/L Carbon Dioxide 25 (19-29) mEq/L BUN 10 (8-26) mg/dL Creatinine 0.62 L (0.72-1.25) mg/dL Glucose 127 H (70-99) mg/dL Calcium 8.4 L (8.6-10.8) mg/dL Calcium panel 10/16/16 Range/Units 04:34 Calcium 8.4 L (8.6-10.8) mg/dL Phosphorus 5.2 H D (2.3-4.7) mg/dL Pituitary panel 10/16/16 Range/Units 04:34 Sodium 138 (136-145) mEq/L Potassium 4.6 H (3.5-4.5) mEq/L Chloride 106 (98-109) mEq/L Carbon Dioxide 25 (19-29) mEq/L BUN 10 (8-26) mg/dL Creatinine 0.62 L (0.72-1.25) mg/dL Glucose 127 H (70-99) mg/dL Calcium 8.4 L (8.6-10.8) mg/dL Adrenal panel 10/16/16 Range/Units 04:34 Sodium 138 (136-145) mEq/L Potassium 4.6 H (3.5-4.5) mEq/L Chloride 106 (98-109) mEq/L Carbon Dioxide 25 (19-29) mEq/L BUN 10 (8-26) mg/dL Creatinine 0.62 L (0.72-1.25) mg/dL Glucose 127 H (70-99) mg/dL Calcium 8.4 L (8.6-10.8) mg/dL
[2016-10-16] MEDS ORDERED: Clinimix E 5%-15% SOLUTION 2,000 ML with MVI, adult with vitamin K 10 ML IV SCH (17:00)
[2016-10-16] MEDS: Ketorolac 15 MG/ML VIAL IVP SCH (17:46)
[2016-10-16] MEDS: *HR* HYDROmorphone 20 MG/20 ML PCA IVC PRN (23:39)
[2016-10-17] MEDS: *HR* Heparin 5,000 UNIT/ML VIAL SQ SCH ×4 (00:05→23:35)
[2016-10-17] MEDS: Ketorolac 15 MG/ML VIAL IVP SCH ×5 (00:05→23:32)
[2016-10-17] MEDS: Piperacillin/Tazobactam 3.375 GM in D5% in Water (Mini-Bag+) 100 ML IVPB SCH ×4 (00:08→23:32)
[2016-10-17 04:51] LABS: Basophils % 0.2 %; Eosinophils # 0.1 K/mcL (0.0-0.6); Eosinophils % 0.8 %; Hematocrit 30.6 % (37.5-50.1); Hemoglobin 9.7 g/dL (12.9-16.9); Immature Granulocytes % 1.7 % (0-4); Lymphocytes # 1.8 K/mcL (0.6-4.6); Lymphocytes % 10.7 %; Mean Corpuscular HGB Conc 31.7 g/dL (31.6-35.5); Mean Corpuscular Hemoglobin 29.5 pg (28.0-33.3); Mean Platelet Volume 9.2 fL (9.4-12.4); Monocytes # 1.4 K/mcL (0.0-1.3); Monocytes % 8.1 %; Neutrophils # 13.5 K/mcL (1.6-8.9); Platelet Count 421 K/mcL (140-400); Red Blood Count 3.29 M/mcL (4.19-5.50); Segmented Neutrophils % 78.5 %
[2016-10-17 05:08] LABS: BUN/Creatinine Ratio 24 (6-26); Blood Urea Nitrogen 14 mg/dL (8-26); Calcium 8.1 mg/dL (8.6-10.8); Carbon Dioxide 29 mEq/L (19-29); Chloride 105 mEq/L (98-109); Glucose 111 mg/dL (70-99); Magnesium 1.9 mg/dL (1.6-2.6); Osmolality,Calculated 289 (280-300); Phosphorous 3.4 mg/dL (2.3-4.7); Potassium 3.8 mEq/L (3.5-4.5); Sodium 139 mEq/L (136-145); Triglycerides 143 mg/dL (< 150); eGFR For African Americans > 60 (> 60); eGFR For Non-African Americans > 60 (> 60)
[2016-10-17] MEDS: Pantoprazole 40 MG VIAL IVP SCH (08:52)
[2016-10-17] MEDS: Nicotine 21 MG PATCH.TD24 TD SCH (08:53)
--- NOTE | 2016-10-17 09:10 | General Surgery Progress Note ---
<MauricemimiLizetoralia Myers - Last Filed: 10/17/16 11:48> Date of Encounter: 10/17/16 Time of Encounter: 09:08 - Assessment and Plan (1) Perforated sigmoid colon Current Visit: Yes Status: Acute POD #2 Exploratory laparotomy, takedown splenic flexure, sigmoid resection, colostomy, appendix clear liquids - 300 cc q shift restriction Await return of bowel function Continue supportive care/pain control- FORMULATION CHEMIST pump IV fluids TPN therapy - total fluid rate 80ml/hour (LUCIA + TPN) IV antibiotics Repeat labs in the am Pathology pending booker D/C'ed this AM (2) Neoplasm of sigmoid colon Current Visit: Yes Status: Acute (3) Leukocytosis Current Visit: Yes Status: Acute 19.7>21.7>17.2 Continue IV antibiotics Repeat labs in the am Qualifiers: Leukocytosis type: unspecified Qualified Code(s): D72.829 - Elevated white blood cell count, unspecified (4) Liver masses Current Visit: Yes Status: Acute Liver biopsy in the future (5) DVT prophylaxis Current Visit: Yes Status: Acute Continue heparin 5,000 units SQ twice daily for DVT prophylaxis EPCDs to bilateral lower extremities Subjective Patient reports: no new complaints, pain is less, flatus (small amount), no bowel movement, afebrile Objective Vital Signs - Last 8 Hours Temp Pulse Resp BP Pulse Ox 10/17/16 07:10 98.9 F 94 18 109/65 94 L 10/17/16 03:44 97.8 F 81 18 110/65 94 L Intake and Output 10/16/16 10/17/16 10/17/16 23:59 07:59 15:59 Intake Total 220 / 220 470 / 470 583 / 583 Output Total 0 / 0 750 / 750 Balance 220 / 220 -280 / -280 583 / 583 Intake: IV Fluids 100 / 100 350 / 350 583 / 583 0.9 % Sodium Chloride 1, 583 / 583 000 ML @ 80 mls/hr IVC . [id number] [facility] Rx#: [id number] Intralipid 20% 250 ML @ 250 / 250 21 mls/hr IVPB DAILY@1700 [facility] Rx#:[id number] Zosyn 3.375 GM In 100 / 100 100 / 100 Dextrose 5% (Minibag+) 100 ML 100 ML @ 25 mls/hr IVPB Q8HR [facility] Rx#: [id number] Oral 120 / 120 120 / 120 Output: Urine 0 / 0 Catheter 750 / 750 Other: Meal NPO # Bowel Movements 0 Blood Glucose* 120 132 - General physical appearance well developed, well nourished, no distress - Eyes normal ocular movement - ENT normal mucosa, atraumatic, normocephalic - Neck Neck exam: trachea midline - Respiratory normal respiratory effort, clear to auscultation - Cardiovascular Cardiovascular exam: Present: RRR - Abdomen Abdomen: Present: bowel sounds present, soft, non tender, wound (Colostomy pink and moist (no drainage or flatus noted)) - Genitourinary other (booker catheter to SD with sethi, yellow urine) - Integumentary no rash - Neurologic CN 2-12 grossly intact - Psychiatric oriented to time, oriented to person, oriented to place, speech is normal, memory intact - Labs 10/17/16 04:22 10/17/16 04:22 Diabetes panel 10/17/16 Range/Units 04:22 Sodium 139 (136-145) mEq/L Potassium 3.8 (3.5-4.5) mEq/L Chloride 105 (98-109) mEq/L Carbon Dioxide 29 (19-29) mEq/L BUN 14 (8-26) mg/dL Creatinine 0.59 L (0.72-1.25) mg/dL Glucose 111 H (70-99) mg/dL Calcium 8.1 L (8.6-10.8) mg/dL Triglycerides 143 (< 150) mg/dL Calcium panel 10/17/16 Range/Units 04:22 Calcium 8.1 L (8.6-10.8) mg/dL Phosphorus 3.4 (2.3-4.7) mg/dL Pituitary panel 10/17/16 Range/Units 04:22 Sodium 139 (136-145) mEq/L Potassium 3.8 (3.5-4.5) mEq/L Chloride 105 (98-109) mEq/L Carbon Dioxide 29 (19-29) mEq/L BUN 14 (8-26) mg/dL Creatinine 0.59 L (0.72-1.25) mg/dL Glucose 111 H (70-99) mg/dL Calcium 8.1 L (8.6-10.8) mg/dL Adrenal panel 10/17/16 Range/Units 04:22 Sodium 139 (136-145) mEq/L Potassium 3.8 (3.5-4.5) mEq/L Chloride 105 (98-109) mEq/L Carbon Dioxide 29 (19-29) mEq/L BUN 14 (8-26) mg/dL Creatinine 0.59 L (0.72-1.25) mg/dL Glucose 111 H (70-99) mg/dL Calcium 8.1 L (8.6-10.8) mg/dL - VTE Documentation of Mechanical Device: Intermittent pneumatic compression device Consult Discharge Plan - Plan Referrals: Alicja Aguila, FITTING ROOM INSPECTOR [Primary Care Provider] - <Carlos Lloyd - Last Filed: 10/18/16 12:26> Objective Vital Signs - Last 8 Hours Temp Pulse Resp BP Pulse Ox 10/18/16 11:06 98.1 F 87 16 131/80 96 10/18/16 07:05 98.7 F 83 16 126/77 93 L Intake and Output 10/17/16 10/18/16 10/18/16 23:59 07:59 15:59 Intake Total 1757 / 1757 350 / 350 360 / 360 Output Total 600 / 600 1025 / 1025 750 / 750 Balance 1157 / 1157 -675 / -675 -390 / -390 Intake: IV Fluids 1517 / 1517 350 / 350 0.9 % Sodium Chloride 1, 1417 / 1417 000 ML @ 80 mls/hr IVC . [id number] [facility] Rx#: [id number] Intralipid 20% 250 ML @ 250 / 250 21 mls/hr IVPB DAILY@1700 [facility] Rx#:[id number] Zosyn 3.375 GM In 100 / 100 100 / 100 Dextrose 5% (Minibag+) 100 ML 100 ML @ 25 mls/hr IVPB Q8HR [facility] Rx#: [id number] Oral 240 / 240 0 / 0 360 / 360 Output: Urine 600 / 600 1025 / 1025 750 / 750 Other: Meal Dinner Breakfast # Bowel Movements 0 0 Blood Glucose* 124 118 - Labs 10/18/16 09:00 10/18/16 03:56 Diabetes panel 10/18/16 Range/Units 03:56 Sodium 136 (136-145) mEq/L Potassium 3.9 (3.5-4.5) mEq/L Chloride 104 (98-109) mEq/L Carbon Dioxide 26 (19-29) mEq/L BUN 12 (8-26) mg/dL Creatinine 0.57 L (0.72-1.25) mg/dL Glucose 99 (70-99) mg/dL Calcium 7.9 L (8.6-10.8) mg/dL Calcium panel 10/18/16 Range/Units 03:56 Calcium 7.9 L (8.6-10.8) mg/dL Phosphorus 3.6 (2.3-4.7) mg/dL Pituitary panel 10/18/16 Range/Units 03:56 Sodium 136 (136-145) mEq/L Potassium 3.9 (3.5-4.5) mEq/L Chloride 104 (98-109) mEq/L Carbon Dioxide 26 (19-29) mEq/L BUN 12 (8-26) mg/dL Creatinine 0.57 L (0.72-1.25) mg/dL Glucose 99 (70-99) mg/dL Calcium 7.9 L (8.6-10.8) mg/dL Adrenal panel 10/18/16 Range/Units 03:56 Sodium 136 (136-145) mEq/L Potassium 3.9 (3.5-4.5) mEq/L Chloride 104 (98-109) mEq/L Carbon Dioxide 26 (19-29) mEq/L BUN 12 (8-26) mg/dL Creatinine 0.57 L (0.72-1.25) mg/dL Glucose 99 (70-99) mg/dL Calcium 7.9 L (8.6-10.8) mg/dL - Attending Attestation I examined this patient and my medical decision-making was reviewed with the MANAGER BANQUET/PA/Advanced Practice Nurse/Resident Physician. I agree with the documented findings, disposition and treatment plan as described except to the extent set forth below. Carlos Lloyd MD FACS
[2016-10-17] MEDS: 0.9 % Sodium Chloride 1,000 ML IVC SCH ×3 (15:20→23:40)
[2016-10-17] MEDS: Clinimix E 5%-15% SOLUTION 2,000 ML with MVI, adult with vitamin K 10 ML IV SCH (17:29)
[2016-10-17] MEDS ORDERED: Melatonin 3 MG TABLET PO PRN (17:59)
[2016-10-17] MEDS: *HR* LORazepam 2 MG/ML VIAL IVP PRN (23:33)
[2016-10-18 04:18] LABS: BUN/Creatinine Ratio 21 (6-26); Blood Urea Nitrogen 12 mg/dL (8-26); Calcium 7.9 mg/dL (8.6-10.8); Carbon Dioxide 26 mEq/L (19-29); Chloride 104 mEq/L (98-109); Glucose 99 mg/dL (70-99); Magnesium 1.7 mg/dL (1.6-2.6); Osmolality,Calculated 282 (280-300); Phosphorous 3.6 mg/dL (2.3-4.7); Potassium 3.9 mEq/L (3.5-4.5); Sodium 136 mEq/L (136-145); eGFR For African Americans > 60 (> 60); eGFR For Non-African Americans > 60 (> 60)
[2016-10-18] MEDS: Ketorolac 15 MG/ML VIAL IVP SCH ×3 (06:12→17:36)
[2016-10-18] MEDS: *HR* HYDROmorphone 20 MG/20 ML PCA IVC PRN (07:03)
--- NOTE | 2016-10-18 07:54 | General Surgery Progress Note ---
<Margie Moraes - Last Filed: 10/18/16 11:10> Date of Encounter: 10/18/16 Time of Encounter: 07:52 - Assessment and Plan (1) Perforated sigmoid colon Current Visit: Yes Status: Acute POD #3 Exploratory laparotomy, takedown splenic flexure, sigmoid resection, colostomy, appendix clear liquids - 300 cc q shift restriction Await return of bowel function Continue supportive care/pain control- DIALYSIS REGISTERED NURSE pump TPN therapy - total fluid rate 80ml/hour (LUCIA + TPN) IV antibiotics Repeat labs in the am Pathology pending (2) Neoplasm of sigmoid colon Current Visit: Yes Status: Acute (3) Leukocytosis Current Visit: Yes Status: Acute 19.7>21.7>17.2>20.8 Continue IV antibiotics Repeat labs in the am Qualifiers: Leukocytosis type: unspecified Qualified Code(s): D72.829 - Elevated white blood cell count, unspecified (4) Liver masses Current Visit: Yes Status: Acute Liver biopsy in the future (5) DVT prophylaxis Current Visit: Yes Status: Acute Continue heparin 5,000 units SQ twice daily for DVT prophylaxis EPCDs to bilateral lower extremities Subjective Patient reports: no new complaints, tolerating liquids well (restricted to 300cc q shift currently), voiding w/o difficulty, flatus, no bowel movement, afebrile Objective Vital Signs - Last 8 Hours Temp Pulse Resp BP Pulse Ox 10/18/16 07:05 98.7 F 83 16 126/77 93 L 10/18/16 03:43 97.8 F 84 16 116/77 94 L Intake and Output 10/17/16 10/17/16 10/18/16 15:59 23:59 07:59 Intake Total 1283 / 1283 1757 / 1757 350 / 350 Output Total 300 / 300 600 / 600 725 / 725 Balance 983 / 983 1157 / 1157 -375 / -375 Intake: IV Fluids 683 / 683 1517 / 1517 350 / 350 0.9 % Sodium Chloride 1, 583 / 583 1417 / 1417 000 ML @ 80 mls/hr IVC . [id number] [facility] Rx#: [id number] Intralipid 20% 250 ML @ 250 / 250 21 mls/hr IVPB DAILY@1700 [facility] Rx#:[id number] Zosyn 3.375 GM In 100 / 100 100 / 100 100 / 100 Dextrose 5% (Minibag+) 100 ML 100 ML @ 25 mls/hr IVPB Q8HR [facility] Rx#: [id number] Oral 600 / 600 240 / 240 0 / 0 Output: Urine 0 / 0 600 / 600 725 / 725 Catheter 300 / 300 Other: Meal Clear Dinner # Bowel Movements 0 0 Blood Glucose* 120 124 - General physical appearance well developed, well nourished, no distress - Eyes normal ocular movement - ENT normal mucosa, atraumatic, normocephalic - Neck Neck exam: trachea midline - Respiratory normal respiratory effort, clear to auscultation - Cardiovascular Cardiovascular exam: Present: RRR, murmurs - Abdomen Abdomen: Present: bowel sounds present, soft, non tender, wound (Colostomy pink and moist (small amount serosanguinous drainage)) - Integumentary no rash - Neurologic CN 2-12 grossly intact - Psychiatric oriented to time, oriented to person, oriented to place, speech is normal, memory intact - Labs 10/18/16 09:00 10/18/16 03:56 Diabetes panel 10/18/16 Range/Units 03:56 Sodium 136 (136-145) mEq/L Potassium 3.9 (3.5-4.5) mEq/L Chloride 104 (98-109) mEq/L Carbon Dioxide 26 (19-29) mEq/L BUN 12 (8-26) mg/dL Creatinine 0.57 L (0.72-1.25) mg/dL Glucose 99 (70-99) mg/dL Calcium 7.9 L (8.6-10.8) mg/dL Calcium panel 10/18/16 Range/Units 03:56 Calcium 7.9 L (8.6-10.8) mg/dL Phosphorus 3.6 (2.3-4.7) mg/dL Pituitary panel 10/18/16 Range/Units 03:56 Sodium 136 (136-145) mEq/L Potassium 3.9 (3.5-4.5) mEq/L Chloride 104 (98-109) mEq/L Carbon Dioxide 26 (19-29) mEq/L BUN 12 (8-26) mg/dL Creatinine 0.57 L (0.72-1.25) mg/dL Glucose 99 (70-99) mg/dL Calcium 7.9 L (8.6-10.8) mg/dL Adrenal panel 10/18/16 Range/Units 03:56 Sodium 136 (136-145) mEq/L Potassium 3.9 (3.5-4.5) mEq/L Chloride 104 (98-109) mEq/L Carbon Dioxide 26 (19-29) mEq/L BUN 12 (8-26) mg/dL Creatinine 0.57 L (0.72-1.25) mg/dL Glucose 99 (70-99) mg/dL Calcium 7.9 L (8.6-10.8) mg/dL - VTE Documentation of Mechanical Device: Intermittent pneumatic compression device Consult Discharge Plan - Plan Referrals: Alicja Aguila CNP [Primary Care Provider] - <Carlos Lloyd - Last Filed: 10/18/16 12:42> Objective Vital Signs - Last 8 Hours Temp Pulse Resp BP Pulse Ox 10/18/16 11:06 98.1 F 87 16 131/80 96 10/18/16 07:05 98.7 F 83 16 126/77 93 L Intake and Output 10/17/16 10/18/16 10/18/16 23:59 07:59 15:59 Intake Total 1757 / 1757 350 / 350 360 / 360 Output Total 600 / 600 1025 / 1025 750 / 750 Balance 1157 / 1157 -675 / -675 -390 / -390 Intake: IV Fluids 1517 / 1517 350 / 350 0.9 % Sodium Chloride 1, 1417 / 1417 000 ML @ 80 mls/hr IVC . [id number] [facility] Rx#: [id number] Intralipid 20% 250 ML @ 250 / 250 21 mls/hr IVPB DAILY@1700 [facility] Rx#:[id number] Zosyn 3.375 GM In 100 / 100 100 / 100 Dextrose 5% (Minibag+) 100 ML 100 ML @ 25 mls/hr IVPB Q8HR [facility] Rx#: [id number] Oral 240 / 240 0 / 0 360 / 360 Output: Urine 600 / 600 1025 / 1025 750 / 750 Other: Meal Dinner Breakfast # Bowel Movements 0 0 Blood Glucose* 124 118 - Labs 10/18/16 09:00 10/18/16 03:56 Diabetes panel 10/18/16 Range/Units 03:56 Sodium 136 (136-145) mEq/L Potassium 3.9 (3.5-4.5) mEq/L Chloride 104 (98-109) mEq/L Carbon Dioxide 26 (19-29) mEq/L BUN 12 (8-26) mg/dL Creatinine 0.57 L (0.72-1.25) mg/dL Glucose 99 (70-99) mg/dL Calcium 7.9 L (8.6-10.8) mg/dL Calcium panel 10/18/16 Range/Units 03:56 Calcium 7.9 L (8.6-10.8) mg/dL Phosphorus 3.6 (2.3-4.7) mg/dL Pituitary panel 10/18/16 Range/Units 03:56 Sodium 136 (136-145) mEq/L Potassium 3.9 (3.5-4.5) mEq/L Chloride 104 (98-109) mEq/L Carbon Dioxide 26 (19-29) mEq/L BUN 12 (8-26) mg/dL Creatinine 0.57 L (0.72-1.25) mg/dL Glucose 99 (70-99) mg/dL Calcium 7.9 L (8.6-10.8) mg/dL Adrenal panel 10/18/16 Range/Units 03:56 Sodium 136 (136-145) mEq/L Potassium 3.9 (3.5-4.5) mEq/L Chloride 104 (98-109) mEq/L Carbon Dioxide 26 (19-29) mEq/L BUN 12 (8-26) mg/dL Creatinine 0.57 L (0.72-1.25) mg/dL Glucose 99 (70-99) mg/dL Calcium 7.9 L (8.6-10.8) mg/dL - Attending Attestation I examined this patient and my medical decision-making was reviewed with the CARD SCRAPER/PA/Advanced Practice Nurse/Resident Physician. I agree with the documented findings, disposition and treatment plan as described except to the extent set forth below. Carlos Lloyd MD FACS
[2016-10-18] MEDS: Piperacillin/Tazobactam 3.375 GM in D5% in Water (Mini-Bag+) 100 ML IVPB SCH ×2 (07:55→17:39)
[2016-10-18] MEDS: *HR* Heparin 5,000 UNIT/ML VIAL SQ SCH ×2 (07:57→17:38)
[2016-10-18] MEDS: Pantoprazole 40 MG VIAL IVP SCH (07:57)
[2016-10-18] MEDS: Nicotine 21 MG PATCH.TD24 TD SCH (07:57)
[2016-10-18 09:13] LABS: Basophils % 0.2 %; Eosinophils # 0.2 K/mcL (0.0-0.6); Hemoglobin 10.4 g/dL (12.9-16.9); Immature Granulocytes % 1.7 % (0-4); Lymphocytes # 1.8 K/mcL (0.6-4.6); Lymphocytes % 8.6 %; Mean Corpuscular HGB Conc 32.5 g/dL (31.6-35.5); Mean Corpuscular Hemoglobin 29.9 pg (28.0-33.3); Mean Platelet Volume 9.1 fL (9.4-12.4); Monocytes # 1.3 K/mcL (0.0-1.3); Monocytes % 6.4 %; Neutrophils # 17.1 K/mcL (1.6-8.9); Platelet Count 416 K/mcL (140-400); Red Blood Count 3.48 M/mcL (4.19-5.50); Segmented Neutrophils % 82.1 %
[2016-10-18] MEDS: 0.9 % Sodium Chloride 1,000 ML IVC SCH (17:39)
[2016-10-18] MEDS: Clinimix E 5%-15% SOLUTION 2,000 ML with MVI, adult with vitamin K 10 ML IV SCH (17:40)
[2016-10-19] MEDS: *HR* Heparin 5,000 UNIT/ML VIAL SQ SCH ×4 (00:35→23:16)
[2016-10-19] MEDS: Piperacillin/Tazobactam 3.375 GM in D5% in Water (Mini-Bag+) 100 ML IVPB SCH ×4 (00:36→23:13)
[2016-10-19 04:03] LABS: BUN/Creatinine Ratio 20 (6-26); Blood Urea Nitrogen 11 mg/dL (8-26); Calcium 8.1 mg/dL (8.6-10.8); Carbon Dioxide 28 mEq/L (19-29); Chloride 102 mEq/L (98-109); Glucose 117 mg/dL (70-99); Magnesium 1.8 mg/dL (1.6-2.6); Osmolality,Calculated 282 (280-300); Phosphorous 3.2 mg/dL (2.3-4.7); Potassium 3.8 mEq/L (3.5-4.5); Sodium 136 mEq/L (136-145); eGFR For African Americans > 60 (> 60); eGFR For Non-African Americans > 60 (> 60)
--- NOTE | 2016-10-19 07:33 | General Surgery Progress Note ---
<StevecarlherreraMargie le - Last Filed: 10/19/16 08:31> Time of Encounter: 07:31 - Assessment and Plan (1) Perforated sigmoid colon Current Visit: Yes Status: Acute POD #4 Exploratory laparotomy, takedown splenic flexure, sigmoid resection, colostomy, appendix clear liquid diet Await return of bowel function Continue supportive care/pain control- CORK MIXER pump changed to oral percocet TPN therapy - total fluid rate 80ml/hour (LUCIA + TPN) IV antibiotics Repeat labs in the am Pathology pending (2) Neoplasm of sigmoid colon Current Visit: Yes Status: Acute (3) Leukocytosis Current Visit: Yes Status: Acute 19.7>21.7>17.2>20.8 Continue IV antibiotics Repeat labs in the am Qualifiers: Leukocytosis type: unspecified Qualified Code(s): D72.829 - Elevated white blood cell count, unspecified (4) Liver masses Current Visit: Yes Status: Acute Liver biopsy in the future (5) DVT prophylaxis Current Visit: Yes Status: Acute Continue heparin 5,000 units SQ twice daily for DVT prophylaxis EPCDs to bilateral lower extremities Subjective Patient reports: no new complaints, tolerating liquids well (300 cc q shift restrictions), voiding w/o difficulty, flatus (started this AM at 0330), no bowel movement, afebrile Objective Vital Signs - Last 8 Hours Temp Pulse Resp BP Pulse Ox 10/19/16 03:44 99.2 F 102 18 133/75 93 L 10/19/16 00:40 98.3 F 90 16 128/72 96 Intake and Output 10/18/16 10/18/16 10/19/16 15:59 23:59 07:59 Intake Total 580 / 580 3322 / 3322 953 / 953 Output Total 950 / 950 900 / 900 1350 / 1350 Balance -370 / -370 2422 / 2422 -397 / -397 Intake: IV Fluids 100 / 100 3322 / 3322 953 / 953 Clinimix E 5%-15% 2162 / 2162 443 / 443 SOLUTION 2,000 ML @ 83.3 mls/hr IV .Q24H [facility] with M.v.i. Adult 10 ml Rx#: [id number] 0.9 % Sodium Chloride 1, 1060 / 1060 160 / 160 000 ML @ 80 mls/hr IVC . [id number] [facility] Rx#: [id number] Intralipid 20% 250 ML @ 250 / 250 21 mls/hr IVPB DAILY@1700 [facility] Rx#:[id number] Zosyn 3.375 GM In 100 / 100 100 / 100 100 / 100 Dextrose 5% (Minibag+) 100 ML 100 ML @ 25 mls/hr IVPB Q8HR [facility] Rx#: [id number] Oral 480 / 480 Output: Urine 950 / 950 900 / 900 1350 / 1350 Other: Meal Lunch # Bowel Movements 0 Blood Glucose* 122 114 110 - General physical appearance well developed, well nourished, no distress - Eyes normal ocular movement - ENT normal mucosa, atraumatic, normocephalic - Neck Neck exam: trachea midline - Respiratory normal respiratory effort, clear to auscultation - Cardiovascular Cardiovascular exam: Present: RRR, murmurs - Abdomen Abdomen: Present: bowel sounds present, soft, non tender, wound (colostomy pink and moist (evidence of flatus and small amount of serosang. drainage)) - Incision Incision: Present: intact, serous (small amount ) - Integumentary no rash - Neurologic CN 2-12 grossly intact - Psychiatric oriented to time, oriented to person, oriented to place, speech is normal, memory intact - Labs 10/18/16 09:00 10/19/16 03:30 Diabetes panel 10/19/16 Range/Units 03:30 Sodium 136 (136-145) mEq/L Potassium 3.8 (3.5-4.5) mEq/L Chloride 102 (98-109) mEq/L Carbon Dioxide 28 (19-29) mEq/L BUN 11 (8-26) mg/dL Creatinine 0.55 L (0.72-1.25) mg/dL Glucose 117 H (70-99) mg/dL Calcium 8.1 L (8.6-10.8) mg/dL Calcium panel 10/19/16 Range/Units 03:30 Calcium 8.1 L (8.6-10.8) mg/dL Phosphorus 3.2 (2.3-4.7) mg/dL Pituitary panel 10/19/16 Range/Units 03:30 Sodium 136 (136-145) mEq/L Potassium 3.8 (3.5-4.5) mEq/L Chloride 102 (98-109) mEq/L Carbon Dioxide 28 (19-29) mEq/L BUN 11 (8-26) mg/dL Creatinine 0.55 L (0.72-1.25) mg/dL Glucose 117 H (70-99) mg/dL Calcium 8.1 L (8.6-10.8) mg/dL Adrenal panel 10/19/16 Range/Units 03:30 Sodium 136 (136-145) mEq/L Potassium 3.8 (3.5-4.5) mEq/L Chloride 102 (98-109) mEq/L Carbon Dioxide 28 (19-29) mEq/L BUN 11 (8-26) mg/dL Creatinine 0.55 L (0.72-1.25) mg/dL Glucose 117 H (70-99) mg/dL Calcium 8.1 L (8.6-10.8) mg/dL - VTE Documentation of Mechanical Device: Intermittent pneumatic compression device Consult Discharge Plan - Plan Referrals: Alicja Aguila, [employer] [Primary Care Provider] - <Caitie Guaman - Last Filed: 10/19/16 10:20> Date of Encounter: 10/19/16 Time of Encounter: 08:30 - Assessment and Plan (1) Perforated sigmoid colon Current Visit: Yes Status: Acute tolerating clears, advance to full start po pain medication, dc charging operator and ordered prn dilaudid for breakthrough pain ostomy teaching will begin ambulate wbc continues to be elevated, not sure its due to infection but continue Abx currently (2) Neoplasm of sigmoid colon Current Visit: Yes Status: Acute pathology pending (3) Tobacco abuse Current Visit: Yes Status: Acute nicoderm patches (4) Leukocytosis Current Visit: Yes Status: Acute Qualifiers: Leukocytosis type: unspecified Qualified Code(s): D72.829 - Elevated white blood cell count, unspecified (5) Liver masses Current Visit: Yes Status: Acute Subjective Narrative: pain well controlled passing flatus no bm yet no nausea tolerating clears ambulating Objective Vital Signs - Last 8 Hours Temp Pulse Resp BP Pulse Ox 10/19/16 07:46 98.4 F 87 16 168/90 95 10/19/16 03:44 99.2 F 102 18 133/75 93 L Intake and Output 10/18/16 10/19/16 10/19/16 23:59 07:59 15:59 Intake Total 3322 / 3322 953 / 953 Output Total 900 / 900 1665 / 1665 500 / 500 Balance 2422 / 2422 -712 / -712 -500 / -500 Intake: IV Fluids 3322 / 3322 953 / 953 Clinimix E 5%-15% 2162 / 2162 443 / 443 SOLUTION 2,000 ML @ 83.3 mls/hr IV .Q24H [facility] with M.v.i. Adult 10 ml Rx#: [id number] 0.9 % Sodium Chloride 1, 1060 / 1060 160 / 160 000 ML @ 80 mls/hr IVC . [id number] [facility] Rx#: [id number] Intralipid 20% 250 ML @ 250 / 250 21 mls/hr IVPB DAILY@1700 [facility] Rx#:[id number] Zosyn 3.375 GM In 100 / 100 100 / 100 Dextrose 5% (Minibag+) 100 ML 100 ML @ 25 mls/hr IVPB Q8HR [facility] Rx#: [id number] Output: Urine 900 / 900 1665 / 1665 500 / 500 Other: Blood Glucose* 114 125 - General physical appearance well developed, well nourished, no distress - Eyes PERRL, normal ocular movement - ENT normal mucosa, atraumatic, normocephalic - Neck Neck exam: trachea midline - Abdomen Abdomen: Present: soft, tender (appropriate post op tenderness) - Incision Incision: Present: clean and dry, intact. Absent: serous (old drainage on bandage) - Integumentary no rash, no growths - Neurologic CN 2-12 grossly intact - Musculoskeletal normal posture - Psychiatric oriented to time, oriented to person, oriented to place, speech is normal, memory intact - Labs 10/19/16 09:50 10/19/16 03:30 Short CBC 10/19/16 Range/Units 09:50 WBC 20.6 H (4.3-11.1) K/mcL Hgb 10.9 L (12.9-16.9) g/dL Hct 33.1 L (37.5-50.1) % Plt Count 461 H (140-400) K/mcL Neutrophils # 16.5 H (1.6-8.9) K/mcL BMP 10/19/16 Range/Units 03:30 Sodium 136 (136-145) mEq/L Potassium 3.8 (3.5-4.5) mEq/L Chloride 102 (98-109) mEq/L Carbon Dioxide 28 (19-29) mEq/L BUN 11 (8-26) mg/dL Creatinine 0.55 L (0.72-1.25) mg/dL Glucose 117 H (70-99) mg/dL Calcium 8.1 L (8.6-10.8) mg/dL Vital Signs Temp Pulse Resp BP Pulse Ox 10/19/16 07:46 98.4 F 87 16 168/90 95 10/19/16 03:44 99.2 F 102 18 133/75 93 L 10/19/16 00:40 98.3 F 90 16 128/72 96 10/18/16 19:55 98.2 F 78 16 121/77 96 10/18/16 14:23 97.9 F 89 16 126/76 97 10/18/16 11:06 98.1 F 87 16 131/80 96 Intake and Output 10/18/16 10/19/16 10/19/16 23:59 07:59 15:59 Intake Total 3322 / 3322 953 / 953 Output Total 900 / 900 1665 / 1665 500 / 500 Balance 2422 / 2422 -712 / -712 -500 / -500 Intake: IV Fluids 3322 / 3322 953 / 953 Clinimix E 5%-15% 2162 / 2162 443 / 443 SOLUTION 2,000 ML @ 83.3 mls/hr IV .Q24H [facility] with M.v.i. Adult 10 ml Rx#: [id number] 0.9 % Sodium Chloride 1, 1060 / 1060 160 / 160 000 ML @ 80 mls/hr IVC . [id number] [facility] Rx#: [id number] Intralipid 20% 250 ML @ 250 / 250 21 mls/hr IVPB DAILY@1700 [facility] Rx#:[id number] Zosyn 3.375 GM In 100 / 100 100 / 100 Dextrose 5% (Minibag+) 100 ML 100 ML @ 25 mls/hr IVPB Q8HR [facility] Rx#: [id number] Output: Urine 900 / 900 1665 / 1665 500 / 500 Other: Blood Glucose* 114 125 - Attending Attestation I examined this patient and my medical decision-making was reviewed with the DOCUMENTUM CONSULTANT/PA/Advanced Practice Nurse/Resident Physician. I agree with the documented findings, disposition and treatment plan as described except to the extent set forth below.
[2016-10-19] MEDS: Pantoprazole 40 MG VIAL IVP SCH (09:03)
[2016-10-19] MEDS: Nicotine 21 MG PATCH.TD24 TD SCH (09:04)
[2016-10-19] MEDS ORDERED: *HR* HYDROmorphone 2 MG/ML SYRINGE IVP PRN (09:50)
[2016-10-19 10:02] LABS: Basophils # 0.1 K/mcL (0.0-0.2); Basophils % 0.3 %; Eosinophils # 0.5 K/mcL (0.0-0.6); Eosinophils % 2.2 %; Hematocrit 33.1 % (37.5-50.1); Hemoglobin 10.9 g/dL (12.9-16.9); Lymphocytes # 1.5 K/mcL (0.6-4.6); Lymphocytes % 7.2 %; Mean Corpuscular HGB Conc 32.9 g/dL (31.6-35.5); Mean Corpuscular Volume 91.2 fL (83.0-100.0); Mean Platelet Volume 9.2 fL (9.4-12.4); Monocytes # 1.5 K/mcL (0.0-1.3); Monocytes % 7.2 %; Neutrophils # 16.5 K/mcL (1.6-8.9); Platelet Count 461 K/mcL (140-400); Red Blood Count 3.63 M/mcL (4.19-5.50); Red Cell Distribution Width 13.9 % (11.5-14.5); Segmented Neutrophils % 80.1 %
[2016-10-19] MEDS: Clinimix E 5%-15% SOLUTION 2,000 ML with MVI, adult with vitamin K 10 ML IV SCH (16:50)
[2016-10-19] MEDS ORDERED: Clinimix E 5%-15% SOLUTION 2,000 ML with MVI, adult with vitamin K 10 ML IV SCH (17:00)
[2016-10-19] MEDS: *HR* OxyCODONE/APAP 5/325 TABLET PO PRN (18:29)
[2016-10-20 05:49] LABS: INR 1.3
[2016-10-20 05:53] LABS: Basophils # 0.1 K/mcL (0.0-0.2); Basophils % 0.4 %; Eosinophils # 0.5 K/mcL (0.0-0.6); Eosinophils % 2.8 %; Hemoglobin 11.5 g/dL (12.9-16.9); Immature Granulocytes % 4.8 % (0-4); Lymphocytes # 1.4 K/mcL (0.6-4.6); Lymphocytes % 7.6 %; Mean Corpuscular HGB Conc 32.9 g/dL (31.6-35.5); Mean Corpuscular Hemoglobin 29.8 pg (28.0-33.3); Mean Corpuscular Volume 90.7 fL (83.0-100.0); Mean Platelet Volume 9.1 fL (9.4-12.4); Monocytes # 1.5 K/mcL (0.0-1.3); Monocytes % 8.2 %; Platelet Count 521 K/mcL (140-400); Red Blood Count 3.86 M/mcL (4.19-5.50); Red Cell Distribution Width 13.8 % (11.5-14.5); Segmented Neutrophils % 76.2 %
[2016-10-20 06:00] LABS: BUN/Creatinine Ratio 20 (6-26); Blood Urea Nitrogen 12 mg/dL (8-26); Calcium 8.7 mg/dL (8.6-10.8); Carbon Dioxide 28 mEq/L (19-29); Chloride 104 mEq/L (98-109); Glucose 121 mg/dL (70-99); Osmolality,Calculated 287 (280-300); Phosphorous 3.7 mg/dL (2.3-4.7); Sodium 138 mEq/L (136-145); eGFR For African Americans > 60 (> 60); eGFR For Non-African Americans > 60 (> 60)
[2016-10-20 06:01] LABS: Albumin 1.6 g/dL (3.5-5.0); Albumin/Globulin Ratio 0.4 (1.1-2.2); Bilirubin,Direct 0.9 mg/dL (0.0-0.5); Bilirubin,Indirect 0.4 mg/dL (0.0-1.2); Bilirubin,Total 1.3 mg/dL (0.2-1.2); Globulin 4.1 g/dL (2.4-3.5); Total Protein 5.7 g/dL (6.0-8.3)
[2016-10-20] MEDS: *HR* Heparin 5,000 UNIT/ML VIAL SQ SCH ×2 (07:13→17:22)
[2016-10-20] MEDS: Nicotine 21 MG PATCH.TD24 TD SCH (08:24)
[2016-10-20] MEDS: Piperacillin/Tazobactam 3.375 GM in D5% in Water (Mini-Bag+) 100 ML IVPB SCH ×2 (08:24→17:22)
[2016-10-20] MEDS ORDERED: *HR* Midazolam HCl 2 MG/2 ML VIAL IV PRN (09:36)
--- NOTE | 2016-10-20 09:37 | Pre-Sedation Evaluation ---
Pre-sedation evaluation - Pre-sedation checklist Date of procedure: 10/15/16 Procedure: liver biopsy Recent Vitals: Last Vital Signs Temp 97.6 F 10/20/16 07:22 Pulse 82 10/20/16 07:22 Resp 14 10/20/16 07:22 BP 120/77 10/20/16 07:22 Pulse Ox 94 L 10/20/16 07:22 H&P (including ROS) documented in medical record: Yes Previous reaction to sedatives/anesthetics: No Dietary Status: NPO after Midnight Airway Assessment: Patient can open mouth completely, TMJ function normal, Micrognathia (under-bite, receding chin) absent, Neck with adequate range of motion Possible difficult airway: No ASA Classification *see protocol: CLASS II-Mild systemic disease Plan of Care: Pt appropriate candidate for procedure/moderate/conscious sedation , Risks/benefits of procedure/sedation discussed w/ patient/family
[2016-10-20] MEDS ORDERED: *HR* FentaNYL (PF) 100 MCG/2 ML VIAL IV PRN (09:53)
[2016-10-20] MEDS ORDERED: 0.9 % Sodium Chloride 500 ML ONE (10:08)
--- NOTE | 2016-10-20 10:33 | General Surgery Progress Note ---
<Margie Moraes - Last Filed: 10/20/16 10:31> Date of Encounter: 10/20/16 Time of Encounter: 10:31 - Assessment and Plan (1) Perforated sigmoid colon Current Visit: Yes Status: Acute POD #5 Exploratory laparotomy, takedown splenic flexure, sigmoid resection, colostomy, appendix NPO until after liver biopsy, then full liquid diet Continue supportive care/pain control TPN therapy - total fluid rate 80ml/hour (LUCIA + TPN) IV antibiotics Repeat labs in the am (2) Neoplasm of sigmoid colon Current Visit: Yes Status: Acute (3) Leukocytosis Current Visit: Yes Status: Acute 19.7>21.7>17.2>20.8>20.6>18.4 Continue IV antibiotics Repeat labs in the am Qualifiers: Leukocytosis type: unspecified Qualified Code(s): D72.829 - Elevated white blood cell count, unspecified (4) Liver masses Current Visit: Yes Status: Acute Liver biopsy today (5) DVT prophylaxis Current Visit: Yes Status: Acute heparin SQ Subjective Patient reports: no new complaints, tolerating liquids well (currently NPO for liver bx), flatus, no bowel movement, afebrile Objective Vital Signs - Last 8 Hours Temp Pulse Resp BP Pulse Ox 10/20/16 10:29 86 24 115/75 96 10/20/16 10:26 97 24 127/80 96 10/20/16 09:50 84 22 121/80 10/20/16 07:22 97.6 F 82 14 120/77 94 L 10/20/16 04:31 98.2 F 80 12 120/78 94 L Intake and Output 10/19/16 10/20/16 10/20/16 23:59 07:59 15:59 Intake Total 1635 / 1635 100 / 100 0 / 0 Output Total 2019 1000 / 1000 0 / 0 Balance -385 / -385 -900 / -900 0 / 0 Intake: IV Fluids 1515 / 1515 100 / 100 Clinimix E 5%-15% 1415 / 1415 SOLUTION 2,000 ML @ 83.3 mls/hr IV .Q24H [facility] with M.v.i. Adult 10 ml Rx#: [id number] Zosyn 3.375 GM In 100 / 100 100 / 100 Dextrose 5% (Minibag+) 100 ML 100 ML @ 25 mls/hr IVPB Q8HR [facility] Rx#: [id number] Oral 120 / 120 0 / 0 0 / 0 Output: Urine 1999 / 1999 1000 / 1000 0 / 0 Stool 20 / 20 Other: Meal Dinner Stool Size Small Stool Consistency liquid Stool Color Brown Weight 61.825 kg Blood Glucose* 124 137 Patient Weight 10/20/16 23:59 Weight 61.825 kg - General physical appearance well developed, well nourished, no distress - Eyes normal ocular movement - ENT normal mucosa, atraumatic, normocephalic - Respiratory normal respiratory effort, clear to auscultation - Cardiovascular Cardiovascular exam: Present: RRR, murmurs - Abdomen Abdomen: Present: bowel sounds present, soft, non tender, wound (colostomy pink and moist (evidence of flatus and small amount of serosang. drainage)) - Incision Incision: Present: clean and dry, intact - Integumentary no rash - Neurologic CN 2-12 grossly intact - Psychiatric oriented to time, oriented to person, oriented to place, speech is normal, memory intact - Labs 10/20/16 05:28 10/20/16 05:28 Diabetes panel 10/20/16 10/20/16 Range/Units 05:28 05:28 Sodium 138 (136-145) mEq/L Potassium 4.0 (3.5-4.5) mEq/L Chloride 104 (98-109) mEq/L Carbon Dioxide 28 (19-29) mEq/L BUN 12 (8-26) mg/dL Creatinine 0.59 L (0.72-1.25) mg/dL Glucose 121 H (70-99) mg/dL Calcium 8.7 (8.6-10.8) mg/dL AST 13 (5-34) Units/L ALT 18 (0-55) Units/L Alkaline Phosphatase 299 H (38-126) Units/L Albumin 1.6 L (3.5-5.0) g/dL Calcium panel 10/20/16 10/20/16 10/20/16 Range/Units 05:28 05:28 05:28 Calcium 8.7 (8.6-10.8) mg/dL Phosphorus 3.7 (2.3-4.7) mg/dL Albumin 1.6 L (3.5-5.0) g/dL Pituitary panel 10/20/16 Range/Units 05:28 Sodium 138 (136-145) mEq/L Potassium 4.0 (3.5-4.5) mEq/L Chloride 104 (98-109) mEq/L Carbon Dioxide 28 (19-29) mEq/L BUN 12 (8-26) mg/dL Creatinine 0.59 L (0.72-1.25) mg/dL Glucose 121 H (70-99) mg/dL Calcium 8.7 (8.6-10.8) mg/dL Adrenal panel 10/20/16 10/20/16 Range/Units 05:28 05:28 Sodium 138 (136-145) mEq/L Potassium 4.0 (3.5-4.5) mEq/L Chloride 104 (98-109) mEq/L Carbon Dioxide 28 (19-29) mEq/L BUN 12 (8-26) mg/dL Creatinine 0.59 L (0.72-1.25) mg/dL Glucose 121 H (70-99) mg/dL Calcium 8.7 (8.6-10.8) mg/dL Total Bilirubin 1.3 H (0.2-1.2) mg/dL AST 13 (5-34) Units/L ALT 18 (0-55) Units/L Alkaline Phosphatase 299 H (38-126) Units/L Albumin 1.6 L (3.5-5.0) g/dL - VTE Documentation of Mechanical Device: Intermittent pneumatic compression device Consult Discharge Plan - Plan Referrals: Alicja Aguila, [employer]MA[employer]ET[employer] EXECUTIVE [Primary Care Provider] - <Caitie Guaman - Last Filed: 10/20/16 16:04> Time of Encounter: 14:30 - Assessment and Plan (1) Perforated sigmoid colon Current Visit: Yes Status: Acute pathology from sigmoid resection discussed with patient and his - no tumor present, was perforated diverticulitis liver biopsy today continue prn pain control via po continued leukocytosis but improved, continue Abx, trend wbc dc tpn tonight advance diet to regular (2) Tobacco abuse Current Visit: Yes Status: Acute nicotine patch (3) Leukocytosis Current Visit: Yes Status: Acute Qualifiers: Qualified Code(s): D72.829 - Elevated white blood cell count, unspecified (4) Liver masses Current Visit: Yes Status: Acute holding heparin for liver biopsy, follow Hb liver biopsy pathology pending check afp Subjective Narrative: doesnt like the food hes getting hasnt participated with colostomy teaching, states he looked at his ostomy yesterday and almost puked he is passing flatus from ostomy, no stool yet ambulating well pain controlled with po medication Objective Vital Signs - Last 8 Hours Temp Pulse Resp BP Pulse Ox 10/20/16 15:52 97.5 F L 96 18 123/77 96 10/20/16 12:00 97.3 F L 84 16 117/74 96 10/20/16 11:45 97.5 F L 88 16 119/78 96 10/20/16 11:30 97.3 F L 80 16 114/76 96 10/20/16 11:15 97.7 F 80 16 124/81 95 10/20/16 11:00 97.4 F L 88 16 109/72 96 10/20/16 10:35 86 24 118/71 95 10/20/16 10:29 86 24 115/75 96 10/20/16 10:26 97 24 127/80 96 10/20/16 09:50 84 22 121/80 Intake and Output 10/19/16 10/20/16 10/20/16 23:59 07:59 15:59 Intake Total 1635 / 1635 100 / 100 120 / 120 Output Total 2019 1000 / 1000 475 / 475 Balance -385 / -385 -900 / -900 -355 / -355 Intake: IV Fluids 1515 / 1515 100 / 100 Clinimix E 5%-15% 1415 / 1415 SOLUTION 2,000 ML @ 83.3 mls/hr IV .Q24H [facility] with M.v.i. Adult 10 ml Rx#: [id number] Zosyn 3.375 GM In 100 / 100 100 / 100 Dextrose 5% (Minibag+) 100 ML 100 ML @ 25 mls/hr IVPB Q8HR [facility] Rx#: [id number] Oral 120 / 120 0 / 0 120 / 120 Output: Urine 1999 / 1999 1000 / 1000 475 / 475 Stool 20 / 20 Other: Meal Dinner Stool Size Small Stool Consistency liquid Stool Color Brown Weight 61.825 kg Blood Glucose* 124 137 113 Patient Weight 10/20/16 23:59 Weight 61.825 kg - General physical appearance well developed, well nourished, no distress - Eyes normal ocular movement - ENT normal mucosa, atraumatic, normocephalic - Neck Neck exam: trachea midline - Respiratory clear to auscultation - Cardiovascular Cardiovascular exam: Present: RRR - Abdomen Abdomen: Present: bowel sounds present, soft, tender (appropriate post op tenderness) - Incision Incision: Present: clean and dry, intact - Integumentary no rash, no growths - Neurologic CN 2-12 grossly intact - Musculoskeletal normal posture - Psychiatric oriented to time, oriented to person, oriented to place, speech is normal, memory intact - Labs 10/20/16 05:28 10/20/16 05:28 Diabetes panel 10/20/16 10/20/16 Range/Units 05:28 05:28 Sodium 138 (136-145) mEq/L Potassium 4.0 (3.5-4.5) mEq/L Chloride 104 (98-109) mEq/L Carbon Dioxide 28 (19-29) mEq/L BUN 12 (8-26) mg/dL Creatinine 0.59 L (0.72-1.25) mg/dL Glucose 121 H (70-99) mg/dL Calcium 8.7 (8.6-10.8) mg/dL AST 13 (5-34) Units/L ALT 18 (0-55) Units/L Alkaline Phosphatase 299 H (38-126) Units/L Albumin 1.6 L (3.5-5.0) g/dL Calcium panel 10/20/16 10/20/16 10/20/16 Range/Units 05:28 05:28 05:28 Calcium 8.7 (8.6-10.8) mg/dL Phosphorus 3.7 (2.3-4.7) mg/dL Albumin 1.6 L (3.5-5.0) g/dL Pituitary panel 10/20/16 Range/Units 05:28 Sodium 138 (136-145) mEq/L Potassium 4.0 (3.5-4.5) mEq/L Chloride 104 (98-109) mEq/L Carbon Dioxide 28 (19-29) mEq/L BUN 12 (8-26) mg/dL Creatinine 0.59 L (0.72-1.25) mg/dL Glucose 121 H (70-99) mg/dL Calcium 8.7 (8.6-10.8) mg/dL Adrenal panel 10/20/16 10/20/16 Range/Units 05:28 05:28 Sodium 138 (136-145) mEq/L Potassium 4.0 (3.5-4.5) mEq/L Chloride 104 (98-109) mEq/L Carbon Dioxide 28 (19-29) mEq/L BUN 12 (8-26) mg/dL Creatinine 0.59 L (0.72-1.25) mg/dL Glucose 121 H (70-99) mg/dL Calcium 8.7 (8.6-10.8) mg/dL Total Bilirubin 1.3 H (0.2-1.2) mg/dL AST 13 (5-34) Units/L ALT 18 (0-55) Units/L Alkaline Phosphatase 299 H (38-126) Units/L Albumin 1.6 L (3.5-5.0) g/dL
--- NOTE | 2016-10-20 10:43 | IR Procedure Note ---
Date of procedure: 10/20/16 Consent Obtained: Written consent Timeout: Correct patient and procedure verified, Correct site verified, Time out performed, Skin prep completed Indications: liver mass Procedure Performed: biopsy Site/Technique: rt lobe 18G Results/Findings: 4 cores, one for cultures Estimated blood loss (cc): 0 Complications: None; Tolerated procedure well Post Procedure Treatment Plan: dc to floor
[2016-10-20] MEDS: *HR* OxyCODONE/APAP 5/325 TABLET PO PRN ×2 (12:09→21:12)
--- NOTE | 2016-10-20 15:57 | Oncology Inp Progress Note ---
<Kalina Sheikh E - Last Filed: 10/20/16 15:55> Date of Encounter: 10/20/16 Time of Encounter: 14:10 (1) Liver masses Current Visit: Yes Status: Acute Assessment and plan: Had a CT-guided liver biopsy today pathology pending. (2) Neoplasm of sigmoid colon Current Visit: Yes Status: Acute Assessment and plan: Pathology negative for malignancy indicating diverticulitis with abscess and lymph nodes were benign. Oncology: Subj Interval history: Patient is anxious to get results of the liver biopsy that was performed today. He does understand that surgical pathology was negative for cancer. He does report having some pain in the surgical site but it well controlled with current medications. Please anxious regarding caring for his colostomy. Appetite improving. Urinating without difficulty. - Constitutional Vitals: Vital Signs Temp Pulse Resp BP Pulse Ox 10/20/16 15:52 97.5 F L 96 18 123/77 96 10/20/16 12:00 97.3 F L 84 16 117/74 96 10/20/16 11:45 97.5 F L 88 16 119/78 96 10/20/16 11:30 97.3 F L 80 16 114/76 96 10/20/16 11:15 97.7 F 80 16 124/81 95 10/20/16 11:00 97.4 F L 88 16 109/72 96 10/20/16 10:35 86 24 118/71 95 10/20/16 10:29 86 24 115/75 96 10/20/16 10:26 97 24 127/80 96 10/20/16 09:50 84 22 121/80 10/20/16 07:22 97.6 F 82 14 120/77 94 L 10/20/16 04:31 98.2 F 80 12 120/78 94 L 10/20/16 00:44 98.7 F 81 18 127/76 95 10/19/16 20:15 97.4 F L 84 16 128/78 95 10/19/16 16:44 97.9 F 91 18 123/64 96 Intake and Output 10/19/16 10/20/16 10/20/16 23:59 07:59 15:59 Intake Total 1635 / 1635 100 / 100 120 / 120 Output Total 2019 1000 / 1000 475 / 475 Balance -385 / -385 -900 / -900 -355 / -355 Intake: IV Fluids 1515 / 1515 100 / 100 Clinimix E 5%-15% 1415 / 1415 SOLUTION 2,000 ML @ 83.3 mls/hr IV .Q24H [facility] with M.v.i. Adult 10 ml Rx#: [id number] Zosyn 3.375 GM In 100 / 100 100 / 100 Dextrose 5% (Minibag+) 100 ML 100 ML @ 25 mls/hr IVPB Q8HR [facility] Rx#: [id number] Oral 120 / 120 0 / 0 120 / 120 Output: Urine 1999 / 1999 1000 / 1000 475 / 475 Stool 20 / 20 Other: Meal Dinner Stool Size Small Stool Consistency liquid Stool Color Brown Weight 61.825 kg Blood Glucose* 124 137 113 Patient Weight 10/20/16 23:59 Weight 61.825 kg General appearance: cooperative, no acute distress - Head Head exam: Present: normocephalic - ENT ENT exam: Present: mucous membranes moist - Neck Neck exam: Present: normal inspection - Respiratory Respiratory exam: Present: CTAB - Cardiovascular Cardiovascular exam: Present: RRR - GI/Abdominal GI/Abdominal exam: Present: soft ([place] intact with no evidence of inflammation, ostomy intact) - Extremities Exam Extremities exam: Present: normal inspection Oncology: Obj Data - Labs CBC & Chem 7: 10/20/16 05:28 10/20/16 05:28 Labs: Laboratory Results - last 24 hr 10/19/16 10/19/16 10/20/16 16:42 20:15 00:39 WBC RBC Hgb Hct MCV MCH MCHC RDW Plt Count MPV Immature Gran % Seg Neutrophils % Lymphocytes % Monocytes % Eosinophils % Basophils % Neutrophils # Lymphocytes # Monocytes # Eosinophils # Basophils # PT INR Sodium Potassium Chloride Carbon Dioxide BUN Creatinine Est GFR ( Amer) Est GFR (Non-Af Amer) BUN/Creatinine Ratio Glucose POC Glucose 135 H 124 H 130 H Calculated Osmolality Calcium Phosphorus Magnesium Total Bilirubin Direct Bilirubin Indirect Bilirubin AST ALT Alkaline Phosphatase Serum Total Protein Albumin Globulin Albumin/Globulin Ratio Prealbumin 10/20/16 10/20/16 10/20/16 04:29 05:28 05:28 WBC 18.4 H RBC 3.86 L Hgb 11.5 L Hct 35.0 L MCV 90.7 MCH 29.8 MCHC 32.9 RDW 13.8 Plt Count 521 H MPV 9.1 L Immature Gran % 4.8 H Seg Neutrophils % 76.2 Lymphocytes % 7.6 Monocytes % 8.2 Eosinophils % 2.8 Basophils % 0.4 Neutrophils # 14.0 H Lymphocytes # 1.4 Monocytes # 1.5 H Eosinophils # 0.5 Basophils # 0.1 PT INR Sodium 138 Potassium 4.0 Chloride 104 Carbon Dioxide 28 BUN 12 Creatinine 0.59 L Est GFR ( Amer) > 60 Est GFR (Non-Af Amer) > 60 BUN/Creatinine Ratio 20 Glucose 121 H POC Glucose 123 H Calculated Osmolality 287 Calcium 8.7 Phosphorus Magnesium Total Bilirubin Direct Bilirubin Indirect Bilirubin AST ALT Alkaline Phosphatase Serum Total Protein Albumin Globulin Albumin/Globulin Ratio Prealbumin 10/20/16 10/20/16 10/20/16 05:28 05:28 05:28 WBC RBC Hgb Hct MCV MCH MCHC RDW Plt Count MPV Immature Gran % Seg Neutrophils % Lymphocytes % Monocytes % Eosinophils % Basophils % Neutrophils # Lymphocytes # Monocytes # Eosinophils # Basophils # PT 14.0 H INR 1.3 Sodium Potassium Chloride Carbon Dioxide BUN Creatinine Est GFR ( Amer) Est GFR (Non-Af Amer) BUN/Creatinine Ratio Glucose POC Glucose Calculated Osmolality Calcium Phosphorus 3.7 Magnesium 2.0 Total Bilirubin Direct Bilirubin Indirect Bilirubin AST ALT Alkaline Phosphatase Serum Total Protein Albumin Globulin Albumin/Globulin Ratio Prealbumin 8.0 L 10/20/16 10/20/16 10/20/16 05:28 07:12 11:24 WBC RBC Hgb Hct MCV MCH MCHC RDW Plt Count MPV Immature Gran % Seg Neutrophils % Lymphocytes % Monocytes % Eosinophils % Basophils % Neutrophils # Lymphocytes # Monocytes # Eosinophils # Basophils # PT INR Sodium Potassium Chloride Carbon Dioxide BUN Creatinine Est GFR ( Amer) Est GFR (Non-Af Amer) BUN/Creatinine Ratio Glucose POC Glucose 137 H 113 H Calculated Osmolality Calcium Phosphorus Magnesium Total Bilirubin 1.3 H Direct Bilirubin 0.9 H Indirect Bilirubin 0.4 AST 13 ALT 18 Alkaline Phosphatase 299 H Serum Total Protein 5.7 L Albumin 1.6 L Globulin 4.1 H Albumin/Globulin Ratio 0.4 L Prealbumin - Impressions Impressions Liver Biopsy CT 10/20/16 00:00 IMPRESSION: Successful CT guided core biopsy of the right lobe liver mass. Moderate sedation given over 30 minutes. D/ : / 10/20/2016 15:15:32 Mare Smallwood MD / gladys Interpreting Provider: Mare Smallwood MD - ABG Interpretation ABG results: PT/INR, D-dimer PT 14.0 Seconds (9.4-12.1) H 10/20/16 05:28 Consult Discharge Plan - Plan Referrals: Alicja Aguila [employer]PER[employer] RECEIVING [employer] PROCESSING [Primary Care Provider] - Attestation: My signature below is to certify that this patient is under my care and that I, or nurse practitioner, or a physician's city carrier assistant working with me, has a face-to -face encounter with this patient. <Jim Sharp - Last Filed: 10/21/16 14:38> Oncology: Subj Interval history: I saw and personally examined Mr. Covarrubias at his bedside today and reviewed the chart for details of ongoing care by hospital team. I verified/agree with the history and physical exam findings documented by Naila Sheikh CNP above. Patient is followed by oncology for for suspected colorectal cancer liver metastases and was initially evaluated by Dr. Hall. No status post left-sided colectomy with pathology showing reactive changes. He had a liver biopsy yesterday due to radiographic abnormality consistent with liver metastases. He's doing quite well today. Make incremental improvement postoperatively. No new physical complaints. Maintaining stable vital signs. Clinical exam unremarkable. He has left-sided colostomy which is functional. We will wait for results of recent liver biopsy for definitive oncologic recommendations. If he is medically optimal for discharge, we'll arrange for outpatient follow- up with Dr. Hall. We'll follow the patient along with you but please do not hesitate to call regarding interval oncologic questions that may arise while he is in-house. Appreciate the opportunity to participate in his care during this hospital admission. - Constitutional Vitals: Vital Signs Temp Pulse Resp BP Pulse Ox 10/21/16 11:18 97.5 F L 87 16 120/82 94 L 10/21/16 07:04 97.8 F 91 18 119/81 93 L 10/21/16 00:06 98.1 F 76 16 108/73 93 L 10/20/16 18:41 97.9 F 80 18 109/67 93 L 10/20/16 15:52 97.5 F L 96 18 123/77 96 Intake and Output 10/21/16 10/21/16 10/21/16 00:59 08:59 16:59 Intake Total 120 / 120 160 / 160 Output Total 250 / 250 830 / 830 250 / 250 Balance -130 / -130 -670 / -670 -250 / -250 Intake: IV Fluids 100 / 100 Zosyn 3.375 GM In 100 / 100 Dextrose 5% (Minibag+) 100 ML 100 ML @ 25 mls/hr IVPB Q8HR [facility] Rx#: [id number] Oral 120 / 120 60 / 60 Output: Urine 250 / 250 830 / 830 250 / 250 Stool 0 / 0 Other: Meal Dinner refused Percent of Meal Consumed 0% Blood Glucose* 94 Oncology: Obj Data - Labs CBC & Chem 7: 10/21/16 04:56 10/21/16 04:56 Labs: Laboratory Results - last 24 hr 10/20/16 10/21/16 10/21/16 16:39 04:56 04:56 WBC 23.7 H RBC 4.02 L Hgb 12.0 L Hct 36.3 L MCV 90.3 MCH 29.9 MCHC 33.1 RDW 13.8 Plt Count 501 H MPV 9.2 L Immature Gran % 4.3 H Seg Neutrophils % 77.9 Lymphocytes % 8.3 Monocytes % 6.7 Eosinophils % 2.2 Basophils % 0.6 Neutrophils # 18.5 H Lymphocytes # 2.0 Monocytes # 1.6 H Eosinophils # 0.5 Basophils # 0.1 Sodium 138 Potassium 4.5 Chloride 104 Carbon Dioxide 24 BUN 15 Creatinine 0.64 L Est GFR ( Amer) > 60 Est GFR (Non-Af Amer) > 60 BUN/Creatinine Ratio 23 Glucose 96 POC Glucose 108 H Calculated Osmolality 287 Calcium 9.1 Hepatitis A IgM Ab Hep Bs Antigen Hep B Core IgM Ab Hepatitis C Ab Screen 10/21/16 10/21/16 11:15 13:20 WBC RBC Hgb Hct MCV MCH MCHC RDW Plt Count MPV Immature Gran % Seg Neutrophils % Lymphocytes % Monocytes % Eosinophils % Basophils % Neutrophils # Lymphocytes # Monocytes # Eosinophils # Basophils # Sodium Potassium Chloride Carbon Dioxide BUN Creatinine Est GFR ( Amer) Est GFR (Non-Af Amer) BUN/Creatinine Ratio Glucose POC Glucose 94 H Calculated Osmolality Calcium Hepatitis A IgM Ab Nonreactive Hep Bs Antigen Nonreactive Hep B Core IgM Ab Nonreactive Hepatitis C Ab Screen Nonreactive - Impressions Impressions Liver Biopsy CT 10/20/16 00:00 IMPRESSION: Successful CT guided core biopsy of the right lobe liver mass. Moderate sedation given over 30 minutes. D/ : / 10/20/2016 15:15:32 Mare Smallwood MD / bcarter Interpreting Provider: Mare Smallwood MD - ABG Interpretation ABG results: PT/INR, D-dimer PT 14.0 Seconds (9.4-12.1) H 10/20/16 05:28 Attestation: My signature below is to certify that this patient is under my care and that I, or nurse practitioner, or a physician's city carrier assistant working with me, has a face-to -face encounter with this patient.
[2016-10-21] MEDS: *HR* Heparin 5,000 UNIT/ML VIAL SQ SCH ×2 (00:10→07:51)
[2016-10-21] MEDS: Piperacillin/Tazobactam 3.375 GM in D5% in Water (Mini-Bag+) 100 ML IVPB SCH ×2 (00:10→07:51)
[2016-10-21 05:09] LABS: Basophils # 0.1 K/mcL (0.0-0.2); Basophils % 0.6 %; Eosinophils # 0.5 K/mcL (0.0-0.6); Eosinophils % 2.2 %; Hematocrit 36.3 % (37.5-50.1); Immature Granulocytes % 4.3 % (0-4); Lymphocytes % 8.3 %; Mean Corpuscular HGB Conc 33.1 g/dL (31.6-35.5); Mean Corpuscular Hemoglobin 29.9 pg (28.0-33.3); Mean Corpuscular Volume 90.3 fL (83.0-100.0); Mean Platelet Volume 9.2 fL (9.4-12.4); Monocytes # 1.6 K/mcL (0.0-1.3); Monocytes % 6.7 %; Neutrophils # 18.5 K/mcL (1.6-8.9); Platelet Count 501 K/mcL (140-400); Red Blood Count 4.02 M/mcL (4.19-5.50); Red Cell Distribution Width 13.8 % (11.5-14.5); Segmented Neutrophils % 77.9 %
[2016-10-21 05:27] LABS: BUN/Creatinine Ratio 23 (6-26); Blood Urea Nitrogen 15 mg/dL (8-26); Calcium 9.1 mg/dL (8.6-10.8); Carbon Dioxide 24 mEq/L (19-29); Chloride 104 mEq/L (98-109); Glucose 96 mg/dL (70-99); Osmolality,Calculated 287 (280-300); Potassium 4.5 mEq/L (3.5-4.5); Sodium 138 mEq/L (136-145); eGFR For African Americans > 60 (> 60); eGFR For Non-African Americans > 60 (> 60)
--- NOTE | 2016-10-21 08:05 | General Surgery Progress Note ---
<Margie Moraes - Last Filed: 10/21/16 08:02> Date of Encounter: 10/21/16 Time of Encounter: 08:03 - Assessment and Plan (1) Perforated sigmoid colon Current Visit: Yes Status: Acute POD #6 Exploratory laparotomy, takedown splenic flexure, sigmoid resection, colostomy, appendix pathology reviewed with patient and - no tumor, perforated diverticulitis regular diet IV antibiotics continue supportive care/pain control repeat labs in the am (2) Leukocytosis Current Visit: Yes Status: Acute 19.7>21.7>17.2>20.8>20.6>18.4>23.7 continue IV antibiotics repeat labs in the am Qualifiers: Leukocytosis type: unspecified Qualified Code(s): D72.829 - Elevated white blood cell count, unspecified (3) Liver masses Current Visit: Yes Status: Acute Liver biopsy 10/20 pathology pending afp pending (4) Tobacco abuse Current Visit: Yes Status: Chronic nicotine patch (5) DVT prophylaxis Current Visit: Yes Status: Acute heparin SQ Subjective Patient reports: no new complaints, tolerating a regular diet, voiding w/o difficulty, flatus, no bowel movement, afebrile, other (patient cannot stand to look at ostomy, having bring him biscuits and gravy for breakfast due to not liking hospital food) Objective Vital Signs - Last 8 Hours Temp Pulse Resp BP Pulse Ox 10/21/16 07:04 97.8 F 91 18 119/81 93 L 10/21/16 00:06 98.1 F 76 16 108/73 93 L Intake and Output 10/20/16 10/21/16 10/21/16 23:59 07:59 15:59 Intake Total 120 / 120 160 / 160 Output Total 150 / 150 805 / 805 Balance -30 / -30 -645 / -645 Intake: IV Fluids 100 / 100 Zosyn 3.375 GM In 100 / 100 Dextrose 5% (Minibag+) 100 ML 100 ML @ 25 mls/hr IVPB Q8HR [facility] Rx#: [id number] Oral 120 / 120 60 / 60 Output: Urine 150 / 150 805 / 805 Stool 0 / 0 Other: Meal Dinner Percent of Meal Consumed 0% Blood Glucose* 108 - General physical appearance well developed, well nourished, no distress - Eyes normal ocular movement - ENT normal mucosa, atraumatic, normocephalic - Neck Neck exam: trachea midline - Respiratory normal respiratory effort, clear to auscultation - Cardiovascular Cardiovascular exam: Present: RRR, murmurs - Abdomen Abdomen: Present: bowel sounds present, soft, non tender, wound (colostomy pink and moist (evidence of flatus and small amount of serosang. drainage)) - Incision Incision: Present: clean and dry, intact, serous (crusted around incision) - Integumentary no rash - Neurologic CN 2-12 grossly intact - Psychiatric oriented to time, oriented to person, oriented to place, speech is normal, memory intact - Labs 10/21/16 04:56 10/21/16 04:56 Diabetes panel 10/21/16 Range/Units 04:56 Sodium 138 (136-145) mEq/L Potassium 4.5 (3.5-4.5) mEq/L Chloride 104 (98-109) mEq/L Carbon Dioxide 24 (19-29) mEq/L BUN 15 (8-26) mg/dL Creatinine 0.64 L (0.72-1.25) mg/dL Glucose 96 (70-99) mg/dL Calcium 9.1 (8.6-10.8) mg/dL Calcium panel 10/21/16 Range/Units 04:56 Calcium 9.1 (8.6-10.8) mg/dL Pituitary panel 10/21/16 Range/Units 04:56 Sodium 138 (136-145) mEq/L Potassium 4.5 (3.5-4.5) mEq/L Chloride 104 (98-109) mEq/L Carbon Dioxide 24 (19-29) mEq/L BUN 15 (8-26) mg/dL Creatinine 0.64 L (0.72-1.25) mg/dL Glucose 96 (70-99) mg/dL Calcium 9.1 (8.6-10.8) mg/dL Adrenal panel 10/21/16 Range/Units 04:56 Sodium 138 (136-145) mEq/L Potassium 4.5 (3.5-4.5) mEq/L Chloride 104 (98-109) mEq/L Carbon Dioxide 24 (19-29) mEq/L BUN 15 (8-26) mg/dL Creatinine 0.64 L (0.72-1.25) mg/dL Glucose 96 (70-99) mg/dL Calcium 9.1 (8.6-10.8) mg/dL - VTE Documentation of Mechanical Device: Intermittent pneumatic compression device Consult Discharge Plan - Plan Referrals: Alicja Aguila, SURGICAL ASSISTANT CERTIFIED [Primary Care Provider] - <Caitie Guaman - Last Filed: 10/21/16 18:23> Time of Encounter: 17:30 - Assessment and Plan (1) Perforated sigmoid colon Current Visit: Yes Status: Acute discussed with patient that he needs to move his bowels before he can be discharged having flatus but no bm yet give magnesium citrate continue regular diet prn po pain control (2) Tobacco abuse Current Visit: Yes Status: Chronic (3) Leukocytosis Current Visit: Yes Status: Acute concerned that leukocystosis is the result an infection in the liver or infected thrombus which is seen in portal vein. changed abx from zosyn to meropenum today, added po flagyl and diflucan trend wbc Qualifiers: Leukocytosis type: unspecified Qualified Code(s): D72.829 - Elevated white blood cell count, unspecified (4) Liver masses Current Visit: Yes Status: Acute pathology from biopsy pending culture from biopsy pending Subjective Patient reports: no new complaints, pain is less, tolerating a regular diet, voiding w/o difficulty, flatus, no bowel movement, afebrile Objective Vital Signs - Last 8 Hours Temp Pulse Resp BP Pulse Ox 10/21/16 17:09 98.0 F 85 18 113/69 10/21/16 11:18 97.5 F L 87 16 120/82 94 L Intake and Output 10/21/16 10/21/16 10/21/16 07:59 15:59 23:59 Intake Total 160 / 160 100 / 100 Output Total 930 / 930 400 / 400 Balance -770 / -770 -400 / -400 100 / 100 Intake: IV Fluids 100 / 100 100 / 100 Merrem 1,000 MG In 0.9 % 100 / 100 Sodium Chloride (Mini-Bag +) 100 ML @ 200 mls/hr IVPB Q8HR [facility] Rx#: [id number] Zosyn 3.375 GM In 100 / 100 Dextrose 5% (Minibag+) 100 ML 100 ML @ 25 mls/hr IVPB Q8HR [facility] Rx#: [id number] Oral 60 / 60 Output: Urine 930 / 930 400 / 400 Stool 0 / 0 Other: Meal refused Blood Glucose* 94 - General physical appearance well developed, well nourished, no distress - Eyes normal ocular movement - ENT normal mucosa, atraumatic, normocephalic - Neck Neck exam: trachea midline - Cardiovascular Cardiovascular exam: Present: RRR, murmurs - Abdomen Abdomen: Present: bowel sounds present, soft, tender (appropriate minimal postop pain) - Incision Incision: Present: clean and dry, intact - Integumentary no rash, no growths - Neurologic CN 2-12 grossly intact, normal sensation - Musculoskeletal normal posture - Psychiatric oriented to time, oriented to person, oriented to place, speech is normal, memory intact - Labs 10/21/16 04:56 10/21/16 04:56 Diabetes panel 10/21/16 Range/Units 04:56 Sodium 138 (136-145) mEq/L Potassium 4.5 (3.5-4.5) mEq/L Chloride 104 (98-109) mEq/L Carbon Dioxide 24 (19-29) mEq/L BUN 15 (8-26) mg/dL Creatinine 0.64 L (0.72-1.25) mg/dL Glucose 96 (70-99) mg/dL Calcium 9.1 (8.6-10.8) mg/dL Calcium panel 10/21/16 Range/Units 04:56 Calcium 9.1 (8.6-10.8) mg/dL Pituitary panel 10/21/16 Range/Units 04:56 Sodium 138 (136-145) mEq/L Potassium 4.5 (3.5-4.5) mEq/L Chloride 104 (98-109) mEq/L Carbon Dioxide 24 (19-29) mEq/L BUN 15 (8-26) mg/dL Creatinine 0.64 L (0.72-1.25) mg/dL Glucose 96 (70-99) mg/dL Calcium 9.1 (8.6-10.8) mg/dL Adrenal panel 10/21/16 Range/Units 04:56 Sodium 138 (136-145) mEq/L Potassium 4.5 (3.5-4.5) mEq/L Chloride 104 (98-109) mEq/L Carbon Dioxide 24 (19-29) mEq/L BUN 15 (8-26) mg/dL Creatinine 0.64 L (0.72-1.25) mg/dL Glucose 96 (70-99) mg/dL Calcium 9.1 (8.6-10.8) mg/dL
[2016-10-21] MEDS: Nicotine 21 MG PATCH.TD24 TD SCH (08:26)
[2016-10-21] MEDS ORDERED: Fluconazole 100 MG TABLET PO ONE (08:34)
[2016-10-21] MEDS: metroNIDAZOLE 500 MG TABLET PO SCH ×3 (08:50→20:57)
[2016-10-21 14:11] LABS: Hepatitis A Antibody IgM Nonreactive (Nonreactive); Hepatitis B Core IgM Nonreactive (Nonreactive); Hepatitis B Surface Antigen Nonreactive (Nonreactive); Hepatitis C Virus Antibody Nonreactive (Nonreactive)
[2016-10-21] MEDS: Meropenem 1,000 MG in 0.9 % Sodium Chloride Mini Bag 100 ML IVPB SCH ×2 (15:48→23:49)
[2016-10-21] MEDS: *HR* LORazepam 2 MG/ML VIAL IVP PRN (16:37)
[2016-10-22 05:55] LABS: Hemoglobin 11.8 g/dL (12.9-16.9); Mean Corpuscular HGB Conc 32.8 g/dL (31.6-35.5); Mean Corpuscular Hemoglobin 29.8 pg (28.0-33.3); Mean Corpuscular Volume 90.9 fL (83.0-100.0); Mean Platelet Volume 9.3 fL (9.4-12.4); Platelet Count 474 K/mcL (140-400); Red Blood Count 3.96 M/mcL (4.19-5.50); Red Cell Distribution Width 13.8 % (11.5-14.5)
[2016-10-22] MEDS ORDERED: *HR* Enoxaparin 40 MG/0.4 ML SYRINGE SQ SCH (06:00)
[2016-10-22 06:18] LABS: BUN/Creatinine Ratio 25 (6-26); Blood Urea Nitrogen 17 mg/dL (8-26); Calcium 9.1 mg/dL (8.6-10.8); Carbon Dioxide 24 mEq/L (19-29); Chloride 103 mEq/L (98-109); Glucose 79 mg/dL (70-99); Osmolality,Calculated 282 (280-300); Potassium 4.4 mEq/L (3.5-4.5); Sodium 136 mEq/L (136-145); eGFR For African Americans > 60 (> 60); eGFR For Non-African Americans > 60 (> 60)
[2016-10-22 06:31] LABS: Lymphocytes # 3.3 K/mcL (0.6-4.6); Monocytes # 1.2 K/mcL (0.0-1.3); Neutrophils # 16.1 K/mcL (1.6-8.9); Platelet Estimate Increased (Normal)
[2016-10-22] MEDS: Meropenem 1,000 MG in 0.9 % Sodium Chloride Mini Bag 100 ML IVPB SCH (07:46)
[2016-10-22] MEDS: *HR* LORazepam 2 MG/ML VIAL IVP PRN (07:48)
[2016-10-22] MEDS: Nicotine 21 MG PATCH.TD24 TD SCH (07:48)
[2016-10-22] MEDS: metroNIDAZOLE 500 MG TABLET PO SCH ×2 (07:51→15:27)
--- NOTE | 2016-10-22 08:40 | General Surgery Progress Note ---
<Margie Moraes - Last Filed: 10/22/16 09:22> Date of Encounter: 10/22/16 Time of Encounter: 08:38 - Assessment and Plan (1) Perforated sigmoid colon Current Visit: Yes Status: Acute POD #7 Exploratory laparotomy, takedown splenic flexure, sigmoid resection, colostomy, appendix pathology reviewed with patient and - no tumor, perforated diverticulitis regular diet IV antibiotics - Zosyn changed to Meropenem; PO Flagyl and Diflucan added continue supportive care/pain control repeat labs in the am (2) Leukocytosis Current Visit: Yes Status: Acute 19.7>21.7>17.2>20.8>20.6>18.4>23.7>20.6 concerned that leukocystosis is the result an infection in the liver or infected thrombus which is seen in portal vein. continue antibiotics - IV Meropenem, PO Flagyl, PO Diflucan repeat labs in the am Qualifiers: Leukocytosis type: unspecified Qualified Code(s): D72.829 - Elevated white blood cell count, unspecified (3) Liver masses Current Visit: Yes Status: Acute Liver biopsy 10/20 pathology pending culture: preliminary result no growth afp pending negative for Hepatitis A,B,C (4) Tobacco abuse Current Visit: Yes Status: Chronic nicotine patch (5) DVT prophylaxis Current Visit: Yes Status: Acute lovenox SQ Subjective Patient reports: tolerating a regular diet, voiding w/o difficulty, bowel movement (liquid stool in ostomy), afebrile, other (patient states he is ready to go home) Objective Vital Signs - Last 8 Hours Temp Pulse Resp BP Pulse Ox 10/22/16 07:32 97.4 F L 82 15 120/74 95 10/22/16 03:29 97.6 F 77 16 122/75 96 Intake and Output 10/21/16 10/22/16 10/22/16 23:59 07:59 15:59 Intake Total 900 / 900 700 / 700 Output Total 850 / 850 715 / 715 250 / 250 Balance 50 / 50 -15 / -15 -250 / -250 Intake: IV Fluids 100 / 100 100 / 100 Merrem 1,000 MG In 0.9 % 100 / 100 100 / 100 Sodium Chloride (Mini-Bag +) 100 ML @ 200 mls/hr IVPB Q8HR [facility] Rx#: [id number] Oral 800 / 800 600 / 600 Output: Urine 650 / 650 715 / 715 250 / 250 Stool 200 / 200 Other: Meal water pitcher Stool Consistency liquid Stool Color Brown Weight 61.8 kg Patient Weight 10/22/16 23:59 Weight 61.8 kg - General physical appearance well developed, well nourished, no distress - Eyes normal ocular movement - ENT normal mucosa, atraumatic, normocephalic - Neck Neck exam: trachea midline - Respiratory normal respiratory effort, clear to auscultation - Cardiovascular Cardiovascular exam: Present: RRR, murmurs - Abdomen Abdomen: Present: bowel sounds present, soft, non tender, wound (colostomy pink and moist with liquid brown stool) - Incision Incision: Present: clean and dry, intact - Integumentary no rash - Neurologic CN 2-12 grossly intact - Psychiatric oriented to time, oriented to person, oriented to place, speech is normal, memory intact - Labs 10/22/16 04:00 10/22/16 04:00 Diabetes panel 10/22/16 Range/Units 04:00 Sodium 136 (136-145) mEq/L Potassium 4.4 (3.5-4.5) mEq/L Chloride 103 (98-109) mEq/L Carbon Dioxide 24 (19-29) mEq/L BUN 17 (8-26) mg/dL Creatinine 0.68 L (0.72-1.25) mg/dL Glucose 79 (70-99) mg/dL Calcium 9.1 (8.6-10.8) mg/dL Calcium panel 10/22/16 Range/Units 04:00 Calcium 9.1 (8.6-10.8) mg/dL Pituitary panel 10/22/16 Range/Units 04:00 Sodium 136 (136-145) mEq/L Potassium 4.4 (3.5-4.5) mEq/L Chloride 103 (98-109) mEq/L Carbon Dioxide 24 (19-29) mEq/L BUN 17 (8-26) mg/dL Creatinine 0.68 L (0.72-1.25) mg/dL Glucose 79 (70-99) mg/dL Calcium 9.1 (8.6-10.8) mg/dL Adrenal panel 10/22/16 Range/Units 04:00 Sodium 136 (136-145) mEq/L Potassium 4.4 (3.5-4.5) mEq/L Chloride 103 (98-109) mEq/L Carbon Dioxide 24 (19-29) mEq/L BUN 17 (8-26) mg/dL Creatinine 0.68 L (0.72-1.25) mg/dL Glucose 79 (70-99) mg/dL Calcium 9.1 (8.6-10.8) mg/dL - VTE Documentation of Mechanical Device: Intermittent pneumatic compression device Consult Discharge Plan - Plan Referrals: Alicja Aguila, [employer] [Primary Care Provider] - <Caitie Guaman - Last Filed: 10/22/16 09:44> - Assessment and Plan (1) Perforated sigmoid colon Current Visit: Yes Status: Acute (2) Tobacco abuse Current Visit: Yes Status: Chronic (3) Leukocytosis Current Visit: Yes Status: Acute will have to send home on iv and po abx, concerned for pyelophlebitis, biopsy of liver shows no growth on culture currently Qualifiers: Leukocytosis type: unspecified Qualified Code(s): D72.829 - Elevated white blood cell count, unspecified (4) Liver masses Current Visit: Yes Status: Acute pathology pending, afp pending culture of liver negative (5) Pylephlebitis Current Visit: Yes Status: Acute due to continued wbc, patient without any real abdominal discomfort, no RUQ, concern that continued wbc is due to infected portal thrombus, will continue IV abx, likely change to Ertapenum for home abx, trend wbc, continue flagyl and diflucan po dialy lovenox Subjective Patient reports: no new complaints, tolerating a regular diet, voiding w/o difficulty, flatus, bowel movement, afebrile, other Objective Vital Signs - Last 8 Hours Temp Pulse Resp BP Pulse Ox 10/22/16 07:32 97.4 F L 82 15 120/74 95 10/22/16 03:29 97.6 F 77 16 122/75 96 Intake and Output 10/21/16 10/22/16 10/22/16 23:59 07:59 15:59 Intake Total 900 / 900 700 / 700 Output Total 850 / 850 715 / 715 250 / 250 Balance 50 / 50 -15 / -15 -250 / -250 Intake: IV Fluids 100 / 100 100 / 100 Merrem 1,000 MG In 0.9 % 100 / 100 100 / 100 Sodium Chloride (Mini-Bag +) 100 ML @ 200 mls/hr IVPB Q8HR [facility] Rx#: [id number] Oral 800 / 800 600 / 600 Output: Urine 650 / 650 715 / 715 250 / 250 Stool 200 / 200 Other: Meal water pitcher Stool Consistency liquid Stool Color Brown Weight 61.8 kg Patient Weight 10/22/16 23:59 Weight 61.8 kg - General physical appearance well developed, well nourished, no distress - Eyes PERRL, normal ocular movement - ENT normal mucosa, atraumatic, normocephalic - Neck Neck exam: trachea midline - Respiratory normal expansion, clear to auscultation - Cardiovascular Cardiovascular exam: Present: RRR - Abdomen Abdomen: Present: bowel sounds present, soft, tender (appropropriate minimal post op tenderness) - Incision Incision: Present: clean and dry, intact - Integumentary no rash, no growths - Neurologic CN 2-12 grossly intact - Musculoskeletal normal gait, normal posture - Psychiatric oriented to time, oriented to person, oriented to place, speech is normal, memory intact - Labs 10/22/16 04:00 10/22/16 04:00 Diabetes panel 10/22/16 Range/Units 04:00 Sodium 136 (136-145) mEq/L Potassium 4.4 (3.5-4.5) mEq/L Chloride 103 (98-109) mEq/L Carbon Dioxide 24 (19-29) mEq/L BUN 17 (8-26) mg/dL Creatinine 0.68 L (0.72-1.25) mg/dL Glucose 79 (70-99) mg/dL Calcium 9.1 (8.6-10.8) mg/dL Calcium panel 10/22/16 Range/Units 04:00 Calcium 9.1 (8.6-10.8) mg/dL Pituitary panel 10/22/16 Range/Units 04:00 Sodium 136 (136-145) mEq/L Potassium 4.4 (3.5-4.5) mEq/L Chloride 103 (98-109) mEq/L Carbon Dioxide 24 (19-29) mEq/L BUN 17 (8-26) mg/dL Creatinine 0.68 L (0.72-1.25) mg/dL Glucose 79 (70-99) mg/dL Calcium 9.1 (8.6-10.8) mg/dL Adrenal panel 10/22/16 Range/Units 04:00 Sodium 136 (136-145) mEq/L Potassium 4.4 (3.5-4.5) mEq/L Chloride 103 (98-109) mEq/L Carbon Dioxide 24 (19-29) mEq/L BUN 17 (8-26) mg/dL Creatinine 0.68 L (0.72-1.25) mg/dL Glucose 79 (70-99) mg/dL Calcium 9.1 (8.6-10.8) mg/dL
[2016-10-22] MEDS ORDERED: Fluconazole 200 MG/100 ML 200 MG/100 ML BAG IVPB SCH (09:00)
[2016-10-22 11:51] VITALS: BP 114/77
--- NOTE | 2016-10-22 12:46 | Discharge Summary ---
Date of Encounter: 10/22/16 Time of Encounter: 12:37 - Discharge Diagnosis (1) Perforated sigmoid colon Priority: Primary Status: Resolved (2) Neoplasm of sigmoid colon Priority: Primary Status: Resolved (3) Leukocytosis Priority: Secondary Status: Acute Qualifiers: Leukocytosis type: unspecified Qualified Code(s): D72.829 - Elevated white blood cell count, unspecified (4) Liver masses Priority: Secondary Status: Acute (5) DVT prophylaxis Priority: Secondary Status: Acute (6) Tobacco abuse Priority: Secondary Status: Chronic - Discharge Medications Prescriptions: OxyCODONE/APAP 5/325 [Percocet 5/325 MG] 1 each PO Q4HR PRN #42 tablet PRN Reason: Pain Ondansetron ODT [Zofran ODT] 4 mg SL Q6HR #30 tab.rapdis Docusate [Colace] 100 mg PO BID #60 capsule Enoxaparin [Lovenox] 40 mg SQ 0600 #30 syringe Ertapenem [INVanz] 1,000 mg IVPB DAILY #21 vial Fluconazole [Diflucan] 200 mg PO DAILY #28 tablet MetroNIDAZOLE [Flagyl] 500 mg PO TID #42 tablet Home Medications: Naproxen [EC-Naprosyn] 500 mg PO BID PRN 10/14/16 [History] Docusate [Colace] 100 mg PO BID #60 capsule 10/22/16 [Rx] Enoxaparin [Lovenox] 40 mg SQ 0600 #30 syringe 10/22/16 [Rx] Ertapenem [INVanz] 1,000 mg IVPB DAILY #21 vial 10/22/16 [Rx] Fluconazole [Diflucan] 200 mg PO DAILY #28 tablet 10/22/16 [Rx] MetroNIDAZOLE [Flagyl] 500 mg PO TID #42 tablet 10/22/16 [Rx] Ondansetron ODT [Zofran ODT] 4 mg SL Q6HR #30 tab.rapdis 10/22/16 [Rx] OxyCODONE/APAP 5/325 [Percocet 5/325 MG] 1 each PO Q4HR PRN #42 tablet 10/22/16 [Rx] Allergies/Adverse Reactions: Allergies No Known Allergies Allergy (Verified 05/11/16 10:40) General Surgery Exam Initial Vital Signs Temp Pulse Resp BP Pulse Ox 98.0 F 111 18 116/73 97 10/14/16 15:37 10/14/16 15:37 10/14/16 15:37 10/14/16 15:37 10/14/16 15:37 - General physical appearance well developed, well nourished, no distress - Eyes normal ocular movement - ENT normal mucosa, atraumatic, normocephalic - Neck trachea midline - Respiratory normal respiratory effort, clear to auscultation - Cardiovascular Cardiovascular exam: Present: RRR, 15, 16 - Abdomen Abdomen general surgery: Present: bowel sounds present, soft, tender (expected post-operative tenderness), wound (Colostomy pink and moist with positive stool and flatus output) - Incision Incision: Present: clean and dry, intact - Integumentary Integumentary general surgery: Present: warm and dry - Neurologic Present: CN 2-12 grossly intact - Musculoskeletal Present: normal gait, normal posture - Psychiatric Psychiatric general surgery: Present: A&Ox3 Date of admission: 10/14/16 19:02 Primary care physician: Alicja Aguila CNP Consults: 10/15/16 20:34 Consult to Wound Care [CONS] Routine Reason for Consult: new colostomy Call Completed: No 10/16/16 12:17 Consult to Invasive Line Access Team [CONS] Routine Reason for Consult: picc placement Line Type: PICC PICC line indications: Parental nutrition Time Notified: 12:17 Call Completed: Yes consult to auto rebuilder [Consult to Nutrition] [CONS] Routine Comment: Total fluid rate of 80ml/hour (MIV + TPN) Consulting Provider: NUTRITION Reason for Dietary Consult: TPN Start and Manage 10/16/16 14:09 Consult to Invasive Line Access Team [CONS] Routine Reason for Consult: Picc Line Insertion Line Type: PICC 10/19/16 15:50 Consult to Interventional Radiology [CONS] Routine Consulting Provider: Radiology Interventional Cols Reason for Consult: Liver Biopsy Call Completed: Yes 10/21/16 13:31 Consult to Building Tech [CONS] Routine Reason for SW Consult: discharge planning, home health for colostomy care. [facility] Anticipated date of discharge: 10/22/16 - Patient Status Disposition: Home Health Service Condition: Good Functional capacity at discharge: independent ambulation Overall status at discharge: patient is progressing back to baseline - Discharge Instructions Follow Up With: Alicja Aguila CNP [Primary Care Provider] - (1 week hospital follow-up) Caitie Guaman MD [Partnered Physician] - 11/04/16 11:05 am (surgery follow- up) Abdirahman Hall MD [Partnered Physician] - (1 week hospital follow-up) Additional Instructions: Activity Restrictions: #1 may shower, no tub bath for 2 weeks #2 wash incisions with soap and water and pat dry daily #3 no lifting, pushing, pulling more than 15 pounds for the next 6 weeks #4 no driving until off narcotics for 24 hours and able to safely react in the car #5 may climb stairs Colostomy care daily- empty bag 3 times per day and prn if full CBC every 3 days while on antibiotic therapy (3 weeks) PICC line care per protocol - Diet and Activity Activity: other (See additional instructions above) Diet: regular diet - Hospital Course Hospital course: Mr. Covarrubias is a 56 year old male who presented to the hospital with a perforated sigmoid colon. He was made NPO and placed on IV antibiotics and IV fluids. He was taken to the operating room with Dr. Guaman for a Exploratory laparotomy, takedown splenic flexure, sigmoid resection, colostomy, appendix. The patient remained on bowel rest while awaiting return of bowel function. He did have a PICC line placed and TPN was initiated for malnutrition while awaiting return of bowel function. The patient was started on clear liquid diet and slowly advanced to a regular diet as tolerated. His colon pathology was reviewed with patient and and was negative for malignancy. Findings were consistent with diverticulitis. He was sent to IR for a liver biopsy to determine the etiology for liver masses. Core biopsies were sent for pathology and culture. The patient has remained on IV antibiotic during his hospitalization due to persistent leukocytosis. We did add oral diflucan and flagyl and will plan to continue IV antibiotics for the next 3 weeks. He has also been treated with prophylactic blood thinners due to presumptive septic thrombus in the portal vein. He did receive ostomy teaching per the wound care nurse. His vital are stable and he is afebrile, pain is controlled, voiding and ambulating without difficulty. He is tolerating food but is very picky about what he will eat and states that he does not like the hospital food. He is tolerating food which is being brought in per family. We will begin discharge planning and plan for outpatient f/u in 10-14 days. - Time Spent with Patient Total time spent providing and/or coordinating discharge services: Greater than 30 minutes Labs on day of discharge: Labs from last 24 hours 10/22/16 10/22/16 10/21/16 04:00 04:00 13:20 WBC 20.6 H RBC 3.96 L Hgb 11.8 L Hct 36.0 L MCV 90.9 MCH 29.8 MCHC 32.8 RDW 13.8 Plt Count 474 H MPV 9.3 L Seg Neutrophils % 78.0 Lymphocytes % 16.0 Monocytes % 6.0 Neutrophils # 16.1 H Lymphocytes # 3.3 Monocytes # 1.2 Platelet Estimate Increased H Sodium 136 Potassium 4.4 Chloride 103 Carbon Dioxide 24 BUN 17 Creatinine 0.68 L Est GFR ( Amer) > 60 Est GFR (Non-Af Amer) > 60 BUN/Creatinine Ratio 25 Glucose 79 Calculated Osmolality 282 Calcium 9.1 Hepatitis A IgM Ab Nonreactive Hep Bs Antigen Nonreactive Hep B Core IgM Ab Nonreactive Hepatitis C Ab Screen Nonreactive Preliminary micro results at discharge 10/20/16 12:00 Surgical Biopsy Culture - Preliminary Other-Specify in Comments - Impressions ITS Impressions Liver Biopsy CT 10/20/16 00:00 IMPRESSION: Successful CT guided core biopsy of the right lobe liver mass. Moderate sedation given over 30 minutes. D/ : / 10/20/2016 15:15:32 Mare Smallwood MD / bcarter Interpreting Provider: Mare Smallwood MD - Attending Attestation I examined this patient and my medical decision-making was reviewed with the VEHICLE CONTROLS ENGINEER/PA/Advanced Practice Nurse/Resident Physician. I agree with the documented findings, disposition and treatment plan as described except to the extent set forth below.
--- NOTE | 2016-10-22 13:13 | Physician Discharge Referral ---
Home Health/Hosp Referral Info Transfer to: Home Health Attending Provider: Dr. Caitie Guaman Provider in Charge Post Discharge: Other (Dr. Guaman/PCP) - Diagnosis (1) Perforated sigmoid colon Priority: Primary Status: Resolved (2) Leukocytosis Priority: Secondary Status: Acute (3) Liver masses Priority: Secondary Status: Acute (4) DVT prophylaxis Priority: Secondary Status: Acute (5) Tobacco abuse Priority: Secondary Status: Chronic - Respiratory Orders None Smoking Cessation: Smoking cessation has been advised. For more information, call the [place] Quit Line at 2-753-JCDL-NOW. - Dressing/Wound Care Site: #1- Midline Incision #2- Colostomy #3- Picc line Type of Dressing/Treatments w/Frequency: #1- Cleanse with soap and water and pat dry daily. May shower, no tub bath #2- Colostomy care daily- empty bag at least TID and prn if full; change appliance every 5-7 days and as needed if leaking. #3- PICC line care per protocol- weekly dressing changes and prn if no occlusive - Diet/Nutrition Diet/Nutrition Orders: Regular - Activity Activity Orders: Up ad cherrie Activity: List: Activity Restrictions: #1 may shower, no tub bath for 2 weeks #2 wash incisions with soap and water and pat dry daily #3 no lifting, pushing, pulling more than 15 pounds for the next 6 weeks #4 no driving until off narcotics for 24 hours and able to safely react in the car #5 may climb stairs - Services Needed Following services are medically necessary services: Nursing, Home Infusion Other Treatments: Labs- CBC every 3 days while on IV antibiotics (3 weeks) - Transfer Medications Prescriptions: OxyCODONE/APAP 5/325 [Percocet 5/325 MG] 1 each PO Q4HR PRN #42 tablet PRN Reason: Pain Ondansetron ODT [Zofran ODT] 4 mg SL Q6HR #30 tab.rapdis Docusate [Colace] 100 mg PO BID #60 capsule Enoxaparin [Lovenox] 40 mg SQ 0600 #30 syringe Ertapenem [INVanz] 1,000 mg IVPB DAILY #21 vial Fluconazole [Diflucan] 200 mg PO DAILY #28 tablet MetroNIDAZOLE [Flagyl] 500 mg PO TID #42 tablet Home Medications: Naproxen [EC-Naprosyn] 500 mg PO BID PRN 10/14/16 [History] Docusate [Colace] 100 mg PO BID #60 capsule 10/22/16 [Rx] Enoxaparin [Lovenox] 40 mg SQ 0600 #30 syringe 10/22/16 [Rx] Ertapenem [INVanz] 1,000 mg IVPB DAILY #21 vial 10/22/16 [Rx] Fluconazole [Diflucan] 200 mg PO DAILY #28 tablet 10/22/16 [Rx] MetroNIDAZOLE [Flagyl] 500 mg PO TID #42 tablet 10/22/16 [Rx] Ondansetron ODT [Zofran ODT] 4 mg SL Q6HR #30 tab.rapdis 10/22/16 [Rx] OxyCODONE/APAP 5/325 [Percocet 5/325 MG] 1 each PO Q4HR PRN #42 tablet 10/22/16 [Rx] Allergies/Adverse Reactions: Allergies No Known Allergies Allergy (Verified 05/11/16 10:40) Certification: Further, I certify that my clinical findings support that this patient is homebound (i.e. absences from home require considerable and taxing effort and are for medical reasons or hoahaoism services or infrequently or short duration when for other reasons) because: Homebound Reason: Patient requires assistance of a person or device to safely leave home, Absences from home are contraindicated except to recieve medical care, Post-surgery restriction and or conditions limit ability to leave home, Leaving home requires considerable and taxing effort due to condition Attestation: My signature below is to certify that this patient is under my care and that I, or nurse practitioner, or a physician's curriculum assistant principal working with me, has a face-to -face encounter with this patient.
[2016-10-23] MEDS ORDERED: Fluconazole 100 MG TABLET PO SCH (09:00)
== END 2016-10-22 18:19 | disposition home health service (06) | DRG 853 ==
LOC: EMEROO 15:32 → 3ANU 19:02
PROVIDERS: ADMIT Surgery; ATTEND Surgery
PROC: IRLIVER (2016-10-20 12:00)

== ENCOUNTER 2017-01-25 09:39 | Inpatient (IN) ==
[2017-01-25] MEDS ORDERED: *HR* Rocuronium Bromide 50 MG/5 ML VIAL ONE (09:58)
[2017-01-25] MEDS ORDERED: Dexamethasone 4 MG/ML VIAL ONE (09:58)
[2017-01-25] MEDS ORDERED: Ondansetron 4 MG/2 ML VIAL ONE (09:58)
[2017-01-25] MEDS ORDERED: Lidocaine -MPF 2% 2 ML VIAL ONE (09:58)
[2017-01-25] MEDS ORDERED: *HR* Succinylcholine 200 MG/10 ML VIAL IVP ONE (09:58)
[2017-01-25] MEDS ORDERED: Albuterol 2.5 MG/3 ML NEBULIZER IH ONE ×2 (09:58→10:20)
[2017-01-25] MEDS ORDERED: cefOXitin 2,000 MG in D5% in Water (Mini-Bag+) 100 ML IVPB ONE (09:58)
[2017-01-25] MEDS ORDERED: *HR* Midazolam HCl 2 MG/2 ML VIAL ONE (09:59)
[2017-01-25] MEDS ORDERED: *HR* Propofol 200 MG/20 ML VIAL IVP ONE (09:59)
[2017-01-25] MEDS ORDERED: *HR* FentaNYL (PF) 100 MCG/2 ML VIAL ONE (09:59)
[2017-01-25] MEDS ORDERED: Ringers Solution, Lactated 1,000 ML IVC SCH (10:00)
--- NOTE | 2017-01-25 10:06 | Anesthesia Evaluation PreOp ---
Date of Encounter: 01/25/17 Time of Encounter: 10:04 - Past History Planned Operation: Colostomy Reversal Cardiac History: Denies any Significant Hx Pulmonary History: Smoker (33 years) ADMISSION NURSE History: Denies Any Significant HX Other Medical History: Other (H/O colon CA S/P Leblanc's procedure, portal vein thrombosis on xarelto (stopped xarelto 01/20/2017)) Anesthesia History: No Prior Anesthetic Complications, Past Anesthesia Alcohol Use: occasionally Drug use: none Medications and Allergies Docusate [Colace] 100 mg PO BID #60 capsule 10/22/16 [Rx] Naproxen Sodium [Aleve] 220 mg PO Q8H PRN 12/08/16 [History] Rivaroxaban [Xarelto] 20 mg PO DAILY 12/08/16 [History] Allergies No Known Allergies Allergy (Verified 01/25/17 09:56) - Meds/Allergy Pre-op Review Medications Reviewed: Yes Allergies Reviewed: Yes Beta Blockers on Current Med List: No Anesthesia Results - Labs Laboratory Tests 10/14/16 10/20/16 10/22/16 16:11 05:28 04:00 WBC Hgb Hct Plt Count PT 14.0 H INR 1.3 APTT 29.0 Sodium 136 Potassium 4.4 BUN Creatinine 01/13/17 01/13/17 16:00 16:00 WBC 10.7 Hgb 14.2 Hct 42.1 Plt Count 266 PT INR APTT Sodium Potassium BUN 14 Creatinine 0.83 - Imaging EKG: report reviewed (10/14/2016 SILVERIO HOGAN) Anesthesia Exam O2 Sat Height 1.65 m Height 1.65 m Weight 63.957 kg Weight 63.957 kg O2 Sat by Pulse Oximetry 98 Vital Signs Temp Pulse Resp BP Pulse Ox 98.0 F 83 18 147/93 98 01/25/17 09:52 01/25/17 09:52 01/25/17 09:52 01/25/17 09:52 01/25/17 09:52 Height: 5'5'' Weight: 141 lbs NPO (# of Hours): 8 Pain Scale: 0 Pain Scale Used: Numeric (1 - 10) - HEENT Pupil (Motor): EOMI Mallampati: II Teeth: Missing, Poor dentition (multiple broken/chipped upper and lower) Oral Opening: Greater than 3 - ADMISSION NURSE LOC: Oriented ADMISSION NURSE Motor: Normal RUE, Normal LUE, Normal RLE, Normal LLE, Normal Face ADMISSION NURSE Sensory: Normal: RUE, LUE, RLE, LLE, Face - Cardiac Rhythm: Regular Murmur: None - Pulmonary Breath Sounds: bilateral Clear Respiratory Effort: Symmetrical Anesthesia Assess/Plan ASA Score: 2 Modified Dayanna Scale for Level of Consciousness: Cooperative, oriented, and tranquil Anesthetic Plan: General Monitoring Plan: Standard Monitors Recovery Plan: PACU
[2017-01-25] MEDS ORDERED: Ondansetron 4 MG/2 ML VIAL IVP ONE (10:20)
[2017-01-25] MEDS ORDERED: *HR* Labetalol 100 MG/20 ML MDV IVP PRN (10:20)
[2017-01-25] MEDS ORDERED: *HR* Promethazine 25 MG/ML VIAL IVP PRN ×2 (10:20→13:18)
[2017-01-25] MEDS ORDERED: *HR* HYDROmorphone (PF) 1 MG/ML SYRINGE IVP PRN (10:20)
--- NOTE | 2017-01-25 10:34 | History & Physical Report ---
Date of Encounter: 01/25/17 Time of Encounter: 10:30 24 Hour HP Update - Instructions Instructions: If the History and Physical is less than 30 days old and was completed prior to A.M. admission and or procedure and has NOT been updated on calendar day of procedure please complete this update prior to performing procedure. - Update Patient reports changes in Medical Condition: No Changes in examination, assessment, or condition: No Changes in Medication: No Surgery Remains Indicated: Yes Consent for Planned Operative Procedure(s) Verified: Yes Additions to current History and Physical: patient still has solid stool coming from colostomy - he ate lunch yday - Pre-Operative Checklist Prophylactic Antibiotic Ordered: Yes Home Medications Include Beta Shannon: No Is VTE Prophylaxis Indicated?: Yes
[2017-01-25] MEDS ORDERED: *HR* HYDROmorphone 2 MG/ML SYRINGE ONE (10:40)
[2017-01-25] MEDS ORDERED: 0.9 % Sodium Chloride 1,000 ML IVC SCH (13:18)
[2017-01-25] MEDS ORDERED: Polyethylene Glycol 3350 255 GM POWDER PO ONE ×2 (13:18→13:45)
[2017-01-25] MEDS ORDERED: Ondansetron 4 MG/2 ML VIAL IVP PRN (13:18)
[2017-01-25] MEDS: Nicotine 7 MG PATCH.TD24 TD SCH (14:27)
[2017-01-25] MEDS ORDERED: *HR* LORazepam 2 MG/ML VIAL IVP PRN (20:59)
[2017-01-26] MEDS: Pantoprazole 40 MG VIAL IVP SCH (11:08)
[2017-01-26] MEDS ORDERED: Polyethylene Glycol 3350 255 GM POWDER PO ONE (11:33)
--- NOTE | 2017-01-26 11:37 | General Surgery Progress Note ---
Date of Encounter: 01/26/17 Time of Encounter: 15:30 - Assessment and Plan (1) Diverticular disease Current Visit: Yes Status: Chronic Patient presented for scheduled colostomy reversal but wasnt cleaned out and still having brown soft/formed stools Stool not clear for colostomy reversal today -still mushy brown stools Repeat Miralax and Gatorade bowel prep today, dulcolax at 1700 Clear liquids NPO after midnight Tentatively plan for colostomy revearsal 01/27/[address] Guaman pending bowel prep results Qualifiers: Diverticulosis site: diverticulosis of large intestine Diverticulosis bleeding: diverticulosis without bleeding Qualified Code(s): K57.30 - Diverticulosis of large intestine without perforation or abscess without bleeding (2) Tobacco abuse Current Visit: No Status: Chronic Nicotine patch smoking cessation education (3) DVT prophylaxis Current Visit: No Status: Acute Ambulate hallways EPCDs to bilateral lower extremities flight operations specialist to the OR Subjective Patient reports: no new complaints, voiding w/o difficulty, flatus, bowel movement (via colostomy; still consistency noted to colostomy output, not clear) , afebrile Objective Vital Signs - Last 8 Hours Temp Pulse Resp BP Pulse Ox 01/26/17 07:08 97.7 F 65 16 107/68 96 01/26/17 04:54 98.2 F 71 16 101/58 95 Intake and Output 01/25/17 01/26/17 01/26/17 23:59 07:59 15:59 Intake Total 400 / 400 240 / 240 415 / 415 Output Total 825 / 825 250 / 250 Balance -425 / -425 -10 / -10 415 / 415 Intake: IV Fluids 415 / 415 0.9 % Sodium Chloride 1, 415 / 415 000 ML @ 20 mls/hr IVC . Q24H [facility] Rx#:[id number] Oral 400 / 400 240 / 240 Output: Urine 825 / 825 250 / 250 Other: Meal Dinner NPO breakfast Percent of Meal Consumed 0% Weight 68.13 kg Blood Glucose* 95 Patient Weight 01/26/17 23:59 Weight 68.13 kg - General physical appearance well developed, well nourished, no distress - Eyes PERRL, normal ocular movement - ENT normal mucosa, atraumatic, normocephalic - Neck Neck exam: trachea midline - Respiratory normal expansion, normal respiratory effort, clear to auscultation - Cardiovascular Cardiovascular exam: Present: RRR - Abdomen Abdomen: Present: bowel sounds present, soft, non tender, wound (colostomy with liquid output with consistency, not clear) Additional Comments: colostomy pink, functioning, clear liquid in ostomy appliance - Integumentary no rash, no growths, no abnormal pigmentation - Neurologic CN 2-12 grossly intact - Musculoskeletal normal gait, normal posture - Psychiatric oriented to time, oriented to person, oriented to place, speech is normal, memory intact Consult Discharge Plan - Plan Referrals: Caitie Guaman MD [Partnered Physician] - 02/17/17 10:05 am - Attending Attestation I examined this patient and my medical decision-making was reviewed with the CAR AUDIO INSTALLER/PA/Advanced Practice Nurse/Resident Physician. I agree with the documented findings, disposition and treatment plan as described except to the extent set forth below. I examined this patient and my medical decision-making was reviewed with the CAR AUDIO INSTALLER/PA/Advanced Practice Nurse/Resident Physician. I agree with the documented findings, disposition and treatment plan as described except to the extent set forth below.
[2017-01-26] MEDS: 0.9 % Sodium Chloride 1,000 ML IVC SCH (13:57)
[2017-01-26] MEDS: Nicotine 7 MG PATCH.TD24 TD SCH (13:57)
[2017-01-26] MEDS ORDERED: Water for inj. (sterile) 10 ML IV ONE (16:27)
[2017-01-27] MEDS: Pantoprazole 40 MG VIAL IVP SCH (08:16)
[2017-01-27] MEDS: 0.9 % Sodium Chloride 1,000 ML IVC SCH (08:22)
[2017-01-27] MEDS: Nicotine 7 MG PATCH.TD24 TD SCH (14:08)
[2017-01-27] MEDS ORDERED: Dexamethasone 4 MG/ML VIAL ONE (18:25)
[2017-01-27] MEDS ORDERED: *HR* Rocuronium Bromide 50 MG/5 ML VIAL ONE ×3 (18:25→22:09)
[2017-01-27] MEDS ORDERED: *HR* Propofol 200 MG/20 ML VIAL IVP ONE (18:25)
[2017-01-27] MEDS ORDERED: *HR* FentaNYL (PF) 100 MCG/2 ML VIAL ONE ×2 (18:25→20:15)
[2017-01-27] MEDS ORDERED: Neostigmine Methylsulfate 3 MG/3 ML SYRINGE ONE (18:25)
[2017-01-27] MEDS ORDERED: *HR* Midazolam HCl 2 MG/2 ML VIAL ONE (18:25)
[2017-01-27] MEDS ORDERED: Ondansetron 4 MG/2 ML VIAL ONE (18:25)
[2017-01-27] MEDS ORDERED: Lidocaine -MPF 2% 2 ML VIAL ONE (18:25)
[2017-01-27] MEDS ORDERED: Lidocaine -MPF 4% 5 ML AMPUL ONE (19:28)
[2017-01-27] MEDS ORDERED: *HR* HYDROmorphone 2 MG/ML SYRINGE ONE (19:29)
[2017-01-27] MEDS ORDERED: *HR* Phenylephrine 10 MG/ML VIAL ONE (22:07)
[2017-01-27] MEDS ORDERED: Ondansetron 4 MG/2 ML VIAL IVP ONE (22:49)
[2017-01-27] MEDS ORDERED: *HR* HYDROmorphone (PF) 1 MG/ML SYRINGE IVP PRN (22:49)
[2017-01-27] MEDS ORDERED: Acetaminophen IV 1,000 MG/100 ML INFUS..BTL ONE (22:52)
--- NOTE | 2017-01-27 23:45 | Operative Note ---
Date of procedure: 01/27/17 Pre-op diagnosis: perforated sigmoid diverticulitis, colostomy Post-op diagnosis: same Procedure: lysis of adhesions for 2 hours, colostomy reversal, takedown of splenic flexure Complications: none immediate Anesthesia: ALFREDO Surgeon: Caitie Guaman Flight Communications Officer: Lara Brewer Estimated blood loss (cc): 100 IV fluids (cc): 2,500 Urine output (cc): 300 Specimen: colostomy, anastomotic rings Condition: stable Disposition: PACU Procedure in Detail: Patient was brought to the operating suite and placed supine on the operating table. Sign in was performed and everyone was in agreement. Anesthesia was induced and patient was endotracheally intubated by anesthesia without incident. Andrade catheter was placed by the circulating nurse. NG tube was placed by anesthesia. The abdomen was shaved. The colostomy appliance was removed and a 3-0 silk pursestring stitch was placed around the colostomy. The patient was placed in lithotomy position. The abdomen and groin and perianal area were prepped and draped in the usual sterile fashion. Timeout was performed again everyone was in agreement. A transverse elliptical incision through the skin into the subcutaneous tissue around the colostomy was made with a 15 blade. We dissected the colostomy out with the Bovie through the subcutaneous tissue down to and through the fascia. A midline incision through the skin and the subcutaneous tissue was made with a 15 blade. We dissected through the subcutaneous tissue to the anterior abdominal wall linea alba fascia with the Bovie. Kockers were placed on either side of the fascia for retraction and the abdomen was entered with the Bovie. A Bookwalter was placed for retraction. There were significant adhesions between the small bowel to small bowel, small bowel and colon, small bowel and abdominal wall, and small bowel down into the pelvis in the rectal stump. Lysis of adhesions for 2 hours was done with Metzenbaum scissors, evaluating each area of small bowel as it was lysed. The left colon/colostomy was taken down off the lateral abdominal wall with gentle blunt dissection and the Bovie. Takedown of the splenic flexure was accomplished with gentle blunt dissection and the Bovie. The middle colic vessels were identified. The omentum was taken off the distal transverse colon with the Bovie. The left colic vessels were taken down with the impact LigaSure and the mesentery divided proximal to the middle colic vessels. The left colon then reached well into the pelvis. The proximal rectal stump was identified by the 2-0 Prolene stitch previously placed at the prior surgery. The proximal rectum was freed for about 2-1/2-3 cm circumferentially with the Bovie and gentle blunt dissection. Disposable pursestring stapling device was placed across the distal left colon/colostomy, the distal left colon was transected with heavy Metzenbaum scissors. Babcocks were placed on either side of the open left colon for retraction. The small and medium dilators, up to 29 mm were placed into the open left colon. A 29 EEA pursestring stapling device was chosen for the colorectal anastomosis. The anvil was placed in the open left colon and the purse string tied. The small and medium dilators were placed into the rectum and reached the proximal anastomosis well. The 29 EEA pursestring stapling device was placed through the anus and into the rectum and the anastomosis completed. Anastomotic rings were evaluated and two complete intact rings were found. The bilateral and anterior anastomosis was reinforced with 3-0 silk Lembert stitches. The patient was placed in reverse Trendelenburg position and the pelvis filled with sterile saline. A noncrushing bowel clamp was placed across the left colon proximal to the anastomosis, a 30 mL balloon Andrade catheter was placed into the distal rectum and the balloon blown up with 30 mL of sterile saline. 210 mL of air was instilled into the rectum/anastomosis for a leak test and no air bubbles were seen. The saline was suctioned free from the pelvis. A 10 mm TJ drain was placed through the right abdominal wall and the TJ drain placed in the pelvis, above the anastomosis. The TJ drain was secured to the skin with a 2-0 silk stitch. The omentum was draped over the small bowel returning it to its normal anatomic position. Kockers were placed on the left abdominal wall fascia for retractionl. The posterior rectus fascia at the previous colostomy site was closed transversely with a #1 nonlooped PDS running stitch after loosening the fascia from the muscle. Trochars are placed on either side of the fascia for retraction and 4 pieces of Seprafilm were placed into the abdomen over the omentum. The fascia was closed with 2 separate non-looped #1 PDS running stitches meeting in the middle. The subcutaneous tissue at the midline incision and the previous colostomy site were copiously irrigated with sterile saline. The anterior left rectus fascia was reapproximated in the direction of the fibers with a 0 Vicryl running stitch. The subcutaneous tissue at the midline and previous colostomy site were reapproximated with 3-0 Vicryl interrupted subcutaneous stitches. Palouse were used to close the previous colostomy site incision and the midline incision. A 4 x 4 gauze and Medipore tape were placed over both sites as a dressing and drain sponge was placed at the TJ drain site. All lap and instrument counts were correct at end of the case. The patient tolerated the procedure well. He was taken to PACU in stable condition after being tolerating the procedure well and he was extubated in PACU
--- NOTE | 2017-01-28 00:03 | Anesthesia Evaluation Post Op ---
Date of Encounter: 01/28/17 Time of Encounter: 00:05 - Vital Signs Vital Signs: Vital Signs/O2 Sat/Glucose, Most Current Temp Pulse Resp BP Pulse Ox 01/27/17 23:56 83 16 153/85 98 01/27/17 23:46 67 12 164/85 100 01/27/17 23:36 98.6 F 65 12 162/82 100 - Lungs Lungs: Clear Ascult./Percussion - Airway Airway: Non-obstructed - Cardiovascular Regular Rate - Mental Status Mental Status: Alert & Oriented, Answers Appropriately - Pain Pain Scale: 0 - Nausea Vomiting Nausea Vomiting: Not Present - Hydration Hydration: NPO - Discharge PostOp Status: Transfer Patient to floor
[2017-01-28] MEDS ORDERED: Ondansetron 4 MG/2 ML VIAL IVP PRN (00:14)
[2017-01-28] MEDS ORDERED: *HR* Promethazine 25 MG/ML VIAL IVP PRN (00:14)
[2017-01-28] MEDS: 0.9 % Sodium Chloride 1,000 ML IVC SCH ×5 (00:47→23:35)
[2017-01-28] MEDS: Piperacillin/Tazobactam 3.375 GM in D5% in Water (Mini-Bag+) 100 ML IVPB SCH ×4 (01:00→23:34)
[2017-01-28] MEDS: Acetaminophen IV 1,000 MG/100 ML INFUS..BTL IVPB SCH ×4 (01:17→23:31)
[2017-01-28] MEDS: *HR* HYDROmorphone 20 MG/20 ML PCA IVC PRN (01:21)
[2017-01-28 03:39] LABS: Basophils % 0.1 %; Eosinophils % 0.1 %; Hematocrit 42.5 % (37.5-50.1); Hemoglobin 14.2 g/dL (12.9-16.9); Immature Granulocytes % 0.4 % (0-4); Lymphocytes # 0.9 K/mcL (0.6-4.6); Lymphocytes % 4.9 %; Mean Corpuscular HGB Conc 33.4 g/dL (31.6-35.5); Mean Corpuscular Hemoglobin 30.5 pg (28.0-33.3); Mean Corpuscular Volume 91.2 fL (83.0-100.0); Mean Platelet Volume 9.8 fL (9.4-12.4); Monocytes # 1.6 K/mcL (0.0-1.3); Neutrophils # 15.5 K/mcL (1.6-8.9); Platelet Count 210 K/mcL (140-400); Red Blood Count 4.66 M/mcL (4.19-5.50); Red Cell Distribution Width 13.5 % (11.5-14.5); Segmented Neutrophils % 85.5 %
[2017-01-28 04:00] LABS: BUN/Creatinine Ratio 20 (6-26); Blood Urea Nitrogen 18 mg/dL (8-26); Carbon Dioxide 20 mEq/L (19-29); Chloride 107 mEq/L (98-109); Potassium 4.4 mEq/L (3.5-4.5); Sodium 138 mEq/L (136-145); eGFR For African Americans > 60 (> 60)
[2017-01-28 04:01] LABS: Calcium 8.3 mg/dL (8.6-10.8); Glucose 158 mg/dL (70-99); Magnesium 1.3 mg/dL (1.6-2.6); Osmolality,Calculated 291 (280-300); eGFR For Non-African Americans > 60 (> 60)
[2017-01-28] MEDS: Pantoprazole 40 MG VIAL IVP SCH (05:56)
[2017-01-28] MEDS: Nicotine 7 MG PATCH.TD24 TD SCH (07:18)
[2017-01-28] MEDS ORDERED: Magnesium Sulfate 2 GM in D5% in Water 100 ML IVPB ONE (07:36)
[2017-01-28] MEDS: Ipratropium/Albuterol Neb 3 ML IH SCH ×2 (08:45→22:33)
[2017-01-28] MEDS: *HR* LORazepam 2 MG/ML VIAL IVP PRN ×2 (14:35→23:29)
--- NOTE | 2017-01-28 15:24 | General Surgery Progress Note ---
Date of Encounter: 01/28/17 Time of Encounter: 15:10 - Assessment and Plan (1) Diverticular disease Current Visit: Yes Status: Chronic POD #1 Colostomy revearsal NPO while awaiting return of bowel function NG tube to LIWS IV fluids- 110ml/hour Supportive care/pain control Increase activity as tolerated- out of bed to chair and ambulate PPI therapy Repeat am labs IS every 1 hour while awake Daily dressing change Qualifiers: Diverticulosis site: diverticulosis of large intestine Diverticulosis bleeding: diverticulosis without bleeding Qualified Code(s): K57.30 - Diverticulosis of large intestine without perforation or abscess without bleeding (2) Tobacco abuse Current Visit: No Status: Chronic Nicotine patch smoking cessation education (3) Anxiety Current Visit: Yes Status: Acute Ativan every 8 hours as needed for anxiety (4) DVT prophylaxis Current Visit: No Status: Acute Ambulate hallways EPCDs to bilateral lower extremities distribution agent to the OR Subjective Patient reports: pain is less (surgical), no flatus, no bowel movement, nausea ( mild when up to chair), afebrile Objective Vital Signs - Last 8 Hours Temp Pulse Resp BP Pulse Ox 01/28/17 15:07 96 01/28/17 14:25 97.6 F 89 18 144/85 96 01/28/17 10:28 98.8 F 103 18 112/72 94 01/28/17 10:22 92 01/28/17 08:45 16 90 Intake and Output 01/27/17 01/28/17 01/28/17 23:59 07:59 15:59 Intake Total 1103 / 1103 904 / 904 Output Total 400 / 400 740 / 740 420 / 420 Balance -400 / -400 363 / 363 484 / 484 Intake: IV Fluids 983 / 983 904 / 904 0.9 % Sodium Chloride 1, 683 / 683 700 / 700 000 ML @ 110 mls/hr IVC . Q9H6M [facility] Rx#:[id number] Ofirmev 1,000 mg In 100 200 / 200 ml @ 400 mls/hr IVPB Q8HR [facility] Rx#:[id number] Magnesium Sulfate 2 GM In 104 / 104 Dextrose 5% 100 ML @ 100 mls/hr IVPB ONCE ONE Rx# :[id number] Zosyn 3.375 GM In 100 / 100 100 / 100 Dextrose 5% (Minibag+) 100 ML 100 ML @ 25 mls/hr IVPB Q8HR [facility] Rx#: [id number] Oral 120 / 120 0 / 0 Output: Urine 400 / 400 Estimated Blood Loss 100 / 100 Urine Amount (Catheter) 300 / 300 100 / 100 Catheter 150 / 150 300 / 300 Gastric Drainage 0 / 0 0 / 0 Wound Drainage 90 / 90 120 / 120 Medial Abdomen 90 / 90 120 / 120 Other: Meal npo ice chips NPO Percent of Meal Consumed 0% Weight 63.503 kg Blood Glucose* 130 158 Patient Weight 01/28/17 23:59 Weight 63.503 kg - General physical appearance well developed, well nourished, moderate distress - Eyes normal ocular movement - ENT dry mucosa, atraumatic, normocephalic - Neck Neck exam: trachea midline - Respiratory normal respiratory effort, clear to auscultation - Cardiovascular Cardiovascular exam: Present: RRR - Abdomen Abdomen: Present: soft, tender (expected post-operative tenderness), wound (NG tube to LIWS with no output noted; TJ drain to bulb suction with 210ml of bloody drainage since midnight) - Incision Incision: Present: clean and dry, intact - Genitourinary other (booker catheter to SD with clear, yellow urine) - Neurologic CN 2-12 grossly intact - Psychiatric oriented to time, oriented to person, oriented to place, speech is normal, memory intact, other (significant episode of anxiety this afternoon) - Labs 01/28/17 03:11 01/28/17 03:11 Diabetes panel 01/28/17 Range/Units 03:11 Sodium 138 (136-145) mEq/L Potassium 4.4 (3.5-4.5) mEq/L Chloride 107 (98-109) mEq/L Carbon Dioxide 20 (19-29) mEq/L BUN 18 (8-26) mg/dL Creatinine 0.90 (0.72-1.25) mg/dL Glucose 158 H (70-99) mg/dL Calcium 8.3 L (8.6-10.8) mg/dL Calcium panel 01/28/17 Range/Units 03:11 Calcium 8.3 L (8.6-10.8) mg/dL Phosphorus 5.0 H (2.3-4.7) mg/dL Pituitary panel 01/28/17 Range/Units 03:11 Sodium 138 (136-145) mEq/L Potassium 4.4 (3.5-4.5) mEq/L Chloride 107 (98-109) mEq/L Carbon Dioxide 20 (19-29) mEq/L BUN 18 (8-26) mg/dL Creatinine 0.90 (0.72-1.25) mg/dL Glucose 158 H (70-99) mg/dL Calcium 8.3 L (8.6-10.8) mg/dL Adrenal panel 01/28/17 Range/Units 03:11 Sodium 138 (136-145) mEq/L Potassium 4.4 (3.5-4.5) mEq/L Chloride 107 (98-109) mEq/L Carbon Dioxide 20 (19-29) mEq/L BUN 18 (8-26) mg/dL Creatinine 0.90 (0.72-1.25) mg/dL Glucose 158 H (70-99) mg/dL Calcium 8.3 L (8.6-10.8) mg/dL - VTE Documentation of Mechanical Device: Intermittent pneumatic compression device Consult Discharge Plan - Plan Referrals: Caitie Guaman MD [Partnered Physician] - 02/17/17 10:05 am
[2017-01-29] MEDS: *HR* HYDROmorphone 20 MG/20 ML PCA IVC PRN (00:15)
[2017-01-29] MEDS: 0.9 % Sodium Chloride 1,000 ML IVC SCH ×2 (03:46→09:29)
[2017-01-29 03:57] LABS: Basophils % 0.3 %; Eosinophils % 0.4 %; Hematocrit 36.7 % (37.5-50.1); Immature Granulocytes % 0.3 % (0-4); Lymphocytes # 1.8 K/mcL (0.6-4.6); Lymphocytes % 17.9 %; Mean Corpuscular HGB Conc 32.4 g/dL (31.6-35.5); Mean Corpuscular Hemoglobin 30.2 pg (28.0-33.3); Mean Corpuscular Volume 93.1 fL (83.0-100.0); Mean Platelet Volume 9.7 fL (9.4-12.4); Monocytes % 10.2 %; Neutrophils # 7.1 K/mcL (1.6-8.9); Platelet Count 168 K/mcL (140-400); Red Blood Count 3.94 M/mcL (4.19-5.50); Red Cell Distribution Width 13.8 % (11.5-14.5); Segmented Neutrophils % 70.9 %
[2017-01-29 04:01] LABS: Hemoglobin 11.9 g/dL (12.9-16.9)
[2017-01-29 04:09] LABS: BUN/Creatinine Ratio 19 (6-26); Blood Urea Nitrogen 15 mg/dL (8-26); Calcium 8.1 mg/dL (8.6-10.8); Carbon Dioxide 25 mEq/L (19-29); Chloride 108 mEq/L (98-109); Glucose 119 mg/dL (70-99); Magnesium 1.8 mg/dL (1.6-2.6); Osmolality,Calculated 290 (280-300); Phosphorous 2.4 mg/dL (2.3-4.7); Potassium 4.2 mEq/L (3.5-4.5); Sodium 139 mEq/L (136-145); eGFR For African Americans > 60 (> 60); eGFR For Non-African Americans > 60 (> 60)
[2017-01-29] MEDS: Pantoprazole 40 MG VIAL IVP SCH (05:15)
[2017-01-29] MEDS ORDERED: *HR* Heparin 5,000 UNIT/ML VIAL SQ SCH (06:00)
[2017-01-29] MEDS ORDERED: Water for inj. (sterile) 10 ML IV ONE (09:16)
[2017-01-29] MEDS: Acetaminophen IV 1,000 MG/100 ML INFUS..BTL IVPB SCH ×3 (09:21→23:47)
[2017-01-29] MEDS: Piperacillin/Tazobactam 3.375 GM in D5% in Water (Mini-Bag+) 100 ML IVPB SCH (09:23)
[2017-01-29] MEDS: *HR* LORazepam 2 MG/ML VIAL IVP PRN ×2 (09:26→16:39)
[2017-01-29] MEDS: Nicotine 7 MG PATCH.TD24 TD SCH (09:27)
--- NOTE | 2017-01-29 10:34 | General Surgery Progress Note ---
Date of Encounter: 01/29/17 Time of Encounter: 10:00 - Assessment and Plan (1) Diverticular disease Current Visit: Yes Status: Chronic POD #2 Colostomy revearsal NPO while awaiting return of bowel function, ok ice chips and popcicles NG tube to LIWS IV fluids- 100 cc per hour. will change to maintenance Supportive care/pain control Increase activity as tolerated- out of bed to chair and ambulate PPI therapy Repeat am labs IS every 1 hour while awake Daily dressing change am lab yamel booker Qualifiers: Diverticulosis site: diverticulosis of large intestine Diverticulosis bleeding: diverticulosis without bleeding Qualified Code(s): K57.30 - Diverticulosis of large intestine without perforation or abscess without bleeding (2) Tobacco abuse Current Visit: No Status: Chronic Nicotine patch smoking cessation education (3) Anxiety Current Visit: Yes Status: Acute Ativan every 8 hours as needed for anxiety (4) DVT prophylaxis Current Visit: No Status: Acute Ambulate hallways EPCDs to bilateral lower extremities inspector precision to the OR (5) Anemia Current Visit: Yes Status: Acute hemoglogbin decrease likely secodary to surgery and a little post op blood loss as well as dilutional stop heparin currently, continue EPCDs trend Hb Qualifiers: Anemia type: other cause Other causes of anemia: other cause, not classified Qualified Code(s): D64.89 - Other specified anemias Subjective Patient reports: no new complaints, feels better, still having pain, pain is less, voiding w/o difficulty, no flatus, no bowel movement, afebrile, other ( Patient states that anxiety is more controlled today) Narrative: Jamal is very agitated today no nausea no flatus or bm he is complaining of sore throat Objective Vital Signs - Last 8 Hours Temp Pulse Resp BP Pulse Ox 01/29/17 07:07 98 F 107 16 124/68 96 01/29/17 04:23 97.7 F 91 14 111/69 91 Intake and Output 01/28/17 01/29/17 01/29/17 23:59 07:59 15:59 Intake Total 1200 / 1200 160 / 160 1100 / 1100 Output Total 390 / 390 295 / 295 Balance 810 / 810 -135 / -135 1100 / 1100 Intake: IV Fluids 1200 / 1200 100 / 100 1100 / 1100 0.9 % Sodium Chloride 1, 1000 / 1000 1000 / 1000 000 ML @ 110 mls/hr IVC . Q9H6M [facility] Rx#:[id number] Ofirmev 1,000 mg In 100 100 / 100 100 / 100 ml @ 400 mls/hr IVPB Q8HR [facility] Rx#:[id number] Zosyn 3.375 GM In 100 / 100 100 / 100 Dextrose 5% (Minibag+) 100 ML 100 ML @ 25 mls/hr IVPB Q8HR [facility] Rx#: [id number] Oral 0 / 0 60 / 60 Output: Catheter 350 / 350 275 / 275 Wound Drainage 40 / 40 20 / 20 Medial Abdomen 40 / 40 20 / 20 Other: Meal NPO Percent of Meal Consumed 0% Weight 63.7 kg Blood Glucose* 132 101 Patient Weight 01/29/17 23:59 Weight 63.7 kg - General physical appearance well developed, well nourished, no distress - Eyes normal ocular movement - ENT normal mucosa, dry mucosa, atraumatic, normocephalic - Neck Neck exam: trachea midline - Respiratory normal expansion, normal respiratory effort, clear to auscultation, other ( diminished bibasilar bases) - Cardiovascular Cardiovascular exam: Present: RRR - Abdomen Abdomen: Present: soft, tender (expected post-operative tenderness), wound (TJ drain to bulb suction with serousang. drainage noted (approximately 40ml since midnight); NG tube to LIWS with minimal ouput noted) - Incision Incision: Present: clean and dry, intact, open - Genitourinary other (booker catheter to SD with clear, yellow urine noted) - Neurologic CN 2-12 grossly intact - Psychiatric oriented to time, oriented to person, oriented to place, speech is normal, memory intact - Additional Exam Short CBC 01/29/17 Range/Units 03:35 WBC 10.0 (4.3-11.1) K/mcL Hgb 11.9 L D (12.9-16.9) g/dL Hct 36.7 L (37.5-50.1) % Plt Count 168 (140-400) K/mcL Neutrophils # 7.1 (1.6-8.9) K/mcL BMP 01/29/17 Range/Units 03:35 Sodium 139 (136-145) mEq/L Potassium 4.2 (3.5-4.5) mEq/L Chloride 108 (98-109) mEq/L Carbon Dioxide 25 (19-29) mEq/L BUN 15 (8-26) mg/dL Creatinine 0.80 (0.72-1.25) mg/dL Glucose 119 H (70-99) mg/dL Calcium 8.1 L (8.6-10.8) mg/dL Vital Signs Temp Pulse Resp BP Pulse Ox 01/29/17 07:07 98 F 107 16 124/68 96 01/29/17 04:23 97.7 F 91 14 111/69 91 01/29/17 01:43 97.9 F 94 14 111/67 92 01/28/17 22:33 16 94 01/28/17 20:01 97.8 F 88 14 112/70 95 01/28/17 15:07 96 01/28/17 14:25 97.6 F 89 18 144/85 96 Intake and Output 01/28/17 01/29/17 01/29/17 23:59 07:59 15:59 Intake Total 1200 / 1200 160 / 160 1100 / 1100 Output Total 390 / 390 295 / 295 Balance 810 / 810 -135 / -135 1100 / 1100 Intake: IV Fluids 1200 / 1200 100 / 100 1100 / 1100 0.9 % Sodium Chloride 1, 1000 / 1000 1000 / 1000 000 ML @ 110 mls/hr IVC . Q9H6M [facility] Rx#:[id number] Ofirmev 1,000 mg In 100 100 / 100 100 / 100 ml @ 400 mls/hr IVPB Q8HR [facility] Rx#:[id number] Zosyn 3.375 GM In 100 / 100 100 / 100 Dextrose 5% (Minibag+) 100 ML 100 ML @ 25 mls/hr IVPB Q8HR [facility] Rx#: [id number] Oral 0 / 0 60 / 60 Output: Catheter 350 / 350 275 / 275 Wound Drainage 40 / 40 20 / 20 Medial Abdomen 40 / 40 20 / 20 Other: Meal NPO Percent of Meal Consumed 0% Weight 63.7 kg Blood Glucose* 132 101 Patient Weight 01/29/17 23:59 Weight 63.7 kg - Labs 01/29/17 03:35 01/29/17 03:35 Diabetes panel 01/29/17 Range/Units 03:35 Sodium 139 (136-145) mEq/L Potassium 4.2 (3.5-4.5) mEq/L Chloride 108 (98-109) mEq/L Carbon Dioxide 25 (19-29) mEq/L BUN 15 (8-26) mg/dL Creatinine 0.80 (0.72-1.25) mg/dL Glucose 119 H (70-99) mg/dL Calcium 8.1 L (8.6-10.8) mg/dL Calcium panel 01/29/17 Range/Units 03:35 Calcium 8.1 L (8.6-10.8) mg/dL Phosphorus 2.4 D (2.3-4.7) mg/dL Pituitary panel 01/29/17 Range/Units 03:35 Sodium 139 (136-145) mEq/L Potassium 4.2 (3.5-4.5) mEq/L Chloride 108 (98-109) mEq/L Carbon Dioxide 25 (19-29) mEq/L BUN 15 (8-26) mg/dL Creatinine 0.80 (0.72-1.25) mg/dL Glucose 119 H (70-99) mg/dL Calcium 8.1 L (8.6-10.8) mg/dL Adrenal panel 01/29/17 Range/Units 03:35 Sodium 139 (136-145) mEq/L Potassium 4.2 (3.5-4.5) mEq/L Chloride 108 (98-109) mEq/L Carbon Dioxide 25 (19-29) mEq/L BUN 15 (8-26) mg/dL Creatinine 0.80 (0.72-1.25) mg/dL Glucose 119 H (70-99) mg/dL Calcium 8.1 L (8.6-10.8) mg/dL - VTE Documentation of Mechanical Device: Intermittent pneumatic compression device Consult Discharge Plan - Plan Referrals: Caitie Guaman MD [Partnered Physician] - 02/17/17 10:05 am - Attending Attestation I examined this patient and my medical decision-making was reviewed with the GENETICIST/PA/Advanced Practice Nurse/Resident Physician. I agree with the documented findings, disposition and treatment plan as described except to the extent set forth below. I examined this patient and my medical decision-making was reviewed with the GENETICIST/PA/Advanced Practice Nurse/Resident Physician. I agree with the documented findings, disposition and treatment plan as described except to the extent set forth below.
[2017-01-29] MEDS: Ipratropium/Albuterol Neb 3 ML IH SCH ×2 (10:47→21:28)
[2017-01-29] MEDS ORDERED: Chloraseptic Spray 177 ML BOTTLE MM PRN (10:54)
[2017-01-29] MEDS: D5% in 0.45% NACL 1,000 ML IVC SCH (17:28)
[2017-01-30] MEDS: D5% in 0.45% NACL 1,000 ML IVC SCH ×3 (04:26→16:10)
[2017-01-30] MEDS: Pantoprazole 40 MG VIAL IVP SCH (05:33)
[2017-01-30 06:33] LABS: BUN/Creatinine Ratio 11 (6-26); Blood Urea Nitrogen 6 mg/dL (8-26); Calcium 8.1 mg/dL (8.6-10.8); Carbon Dioxide 26 mEq/L (19-29); Chloride 105 mEq/L (98-109); Glucose 117 mg/dL (70-99); Magnesium 1.4 mg/dL (1.6-2.6); Osmolality,Calculated 285 (280-300); Phosphorous 1.8 mg/dL (2.3-4.7); Potassium 3.6 mEq/L (3.5-4.5); Sodium 138 mEq/L (136-145); eGFR For African Americans > 60 (> 60); eGFR For Non-African Americans > 60 (> 60)
[2017-01-30 06:38] LABS: Basophils % 0.2 %; Eosinophils # 0.3 K/mcL (0.0-0.6); Eosinophils % 3.4 %; Hematocrit 31.9 % (37.5-50.1); Hemoglobin 10.4 g/dL (12.9-16.9); Immature Granulocytes % 0.3 % (0-4); Lymphocytes # 1.5 K/mcL (0.6-4.6); Lymphocytes % 17.9 %; Mean Corpuscular HGB Conc 32.6 g/dL (31.6-35.5); Mean Corpuscular Hemoglobin 29.7 pg (28.0-33.3); Mean Corpuscular Volume 91.1 fL (83.0-100.0); Mean Platelet Volume 9.6 fL (9.4-12.4); Monocytes # 0.8 K/mcL (0.0-1.3); Monocytes % 9.1 %; Neutrophils # 5.9 K/mcL (1.6-8.9); Platelet Count 139 K/mcL (140-400); Red Cell Distribution Width 13.4 % (11.5-14.5); Segmented Neutrophils % 69.1 %
[2017-01-30] MEDS: Nicotine 7 MG PATCH.TD24 TD SCH (07:48)
[2017-01-30] MEDS: Acetaminophen IV 1,000 MG/100 ML INFUS..BTL IVPB SCH ×2 (07:51→16:12)
[2017-01-30] MEDS: Ipratropium/Albuterol Neb 3 ML IH SCH ×2 (08:03→20:01)
[2017-01-30] MEDS: *HR* HYDROmorphone 20 MG/20 ML PCA IVC PRN (11:17)
--- NOTE | 2017-01-30 12:54 | General Surgery Progress Note ---
Date of Encounter: 01/30/17 Time of Encounter: 12:45 - Assessment and Plan (1) Diverticular disease Current Visit: Yes Status: Chronic The patient had takedown of colostomy and is now postoperative day 3. There is no return of bowel activity at this point. We will continue with nasogastric tube drainage, IV hydration, DVT prophylaxis and await bowel function. Qualifiers: Diverticulosis site: diverticulosis of large intestine Diverticulosis bleeding: diverticulosis without bleeding Qualified Code(s): K57.30 - Diverticulosis of large intestine without perforation or abscess without bleeding Subjective Narrative: The patient is postoperative day 3 from lysis of adhesions and takedown colostomy. He has no bowel sounds has not had any flatus yet. We will continue nasogastric tube drainage, IV hydration, DVT prophylaxis and await bowel function Objective Vital Signs - Last 8 Hours Temp Pulse Resp BP Pulse Ox 01/30/17 11:19 97.9 F 76 18 133/83 97 01/30/17 08:25 97.9 F 92 18 137/56 97 01/30/17 08:03 16 95 Intake and Output 01/29/17 01/30/17 01/30/17 23:59 07:59 15:59 Intake Total 850 / 850 1160 / 1160 100 / 100 Output Total 250 / 250 940 / 940 530 / 530 Balance 600 / 600 220 / 220 -430 / -430 Intake: IV Fluids 850 / 850 1100 / 1100 100 / 100 0.9 % Sodium Chloride 1, 750 / 750 000 ML @ 110 mls/hr IVC . Q9H6M [facility] Rx#:[id number] D5% And 0.45% Nacl 1000 1000 / 1000 Ml Bag 1,000 ML @ 100 mls /hr IVC .Q10H [facility] Rx#: [id number] Ofirmev 1,000 mg In 100 100 / 100 100 / 100 100 / 100 ml @ 400 mls/hr IVPB Q8HR [facility] Rx#:[id number] Oral 0 / 0 60 / 60 0 / 0 Output: Urine 250 / 250 300 / 300 500 / 500 Gastric Drainage 550 / 550 Wound Drainage 0 / 0 90 / 90 30 / 30 Medial Abdomen 0 / 0 90 / 90 30 / 30 Other: Meal NPO Percent of Meal Consumed 0% Weight 63.8 kg Blood Glucose* 96 117 108 Patient Weight 01/30/17 23:59 Weight 63.8 kg - General physical appearance well developed, well nourished - Neck Neck exam: no masses, no bruits, no lymphadectomy - Respiratory normal expansion, normal respiratory effort, clear to percussion, clear to auscultation - Cardiovascular Cardiovascular exam: Present: RRR, no murmurs/rubs/gallops - Abdomen Abdomen: Present: soft, non tender (No bowel sounds auscultated) - Incision Incision: Present: clean and dry - Neurologic normal coordination, normal sensation - Psychiatric oriented to time, oriented to person, oriented to place, speech is normal, memory intact - Labs 01/30/17 06:02 01/30/17 06:02 Diabetes panel 01/30/17 Range/Units 06:02 Sodium 138 (136-145) mEq/L Potassium 3.6 (3.5-4.5) mEq/L Chloride 105 (98-109) mEq/L Carbon Dioxide 26 (19-29) mEq/L BUN 6 L (8-26) mg/dL Creatinine 0.55 L (0.72-1.25) mg/dL Glucose 117 H (70-99) mg/dL Calcium 8.1 L (8.6-10.8) mg/dL Calcium panel 01/30/17 Range/Units 06:02 Calcium 8.1 L (8.6-10.8) mg/dL Phosphorus 1.8 L (2.3-4.7) mg/dL Pituitary panel 01/30/17 Range/Units 06:02 Sodium 138 (136-145) mEq/L Potassium 3.6 (3.5-4.5) mEq/L Chloride 105 (98-109) mEq/L Carbon Dioxide 26 (19-29) mEq/L BUN 6 L (8-26) mg/dL Creatinine 0.55 L (0.72-1.25) mg/dL Glucose 117 H (70-99) mg/dL Calcium 8.1 L (8.6-10.8) mg/dL Adrenal panel 01/30/17 Range/Units 06:02 Sodium 138 (136-145) mEq/L Potassium 3.6 (3.5-4.5) mEq/L Chloride 105 (98-109) mEq/L Carbon Dioxide 26 (19-29) mEq/L BUN 6 L (8-26) mg/dL Creatinine 0.55 L (0.72-1.25) mg/dL Glucose 117 H (70-99) mg/dL Calcium 8.1 L (8.6-10.8) mg/dL - VTE Documentation of Mechanical Device: Intermittent pneumatic compression device Consult Discharge Plan - Plan Referrals: Caitie Guaman MD [Partnered Physician] - 02/17/17 10:05 am
[2017-01-31] MEDS: D5% in 0.45% NACL 1,000 ML IVC SCH ×3 (06:15→21:30)
[2017-01-31] MEDS: Pantoprazole 40 MG VIAL IVP SCH (06:16)
[2017-01-31] MEDS: Acetaminophen IV 1,000 MG/100 ML INFUS..BTL IVPB SCH (06:29)
[2017-01-31] MEDS: Nicotine 7 MG PATCH.TD24 TD SCH (07:39)
[2017-01-31 07:45] LABS: Basophils % 0.2 %; Eosinophils # 0.5 K/mcL (0.0-0.6); Eosinophils % 5.5 %; Hematocrit 33.5 % (37.5-50.1); Hemoglobin 11.2 g/dL (12.9-16.9); Immature Granulocytes % 0.3 % (0-4); Lymphocytes % 11.7 %; Mean Corpuscular HGB Conc 33.4 g/dL (31.6-35.5); Mean Corpuscular Hemoglobin 30.3 pg (28.0-33.3); Mean Corpuscular Volume 90.5 fL (83.0-100.0); Mean Platelet Volume 9.8 fL (9.4-12.4); Monocytes # 0.5 K/mcL (0.0-1.3); Monocytes % 6.1 %; Neutrophils # 6.8 K/mcL (1.6-8.9); Platelet Count 170 K/mcL (140-400); Red Cell Distribution Width 13.2 % (11.5-14.5); Segmented Neutrophils % 76.2 %
[2017-01-31 08:28] LABS: BUN/Creatinine Ratio 5 (6-26); Calcium 8.4 mg/dL (8.6-10.8); Carbon Dioxide 25 mEq/L (19-29); Chloride 104 mEq/L (98-109); Glucose 125 mg/dL (70-99); Magnesium 1.4 mg/dL (1.6-2.6); Osmolality,Calculated 282 (280-300); Potassium 3.4 mEq/L (3.5-4.5); Sodium 137 mEq/L (136-145); eGFR For African Americans > 60 (> 60); eGFR For Non-African Americans > 60 (> 60)
[2017-01-31 08:32] LABS: Blood Urea Nitrogen 3 mg/dL (8-26); Phosphorous 2.9 mg/dL (2.3-4.7)
[2017-01-31] MEDS: Ipratropium/Albuterol Neb 3 ML IH SCH ×2 (10:26→20:13)
--- NOTE | 2017-01-31 13:05 | General Surgery Progress Note ---
Date of Encounter: 01/31/17 Time of Encounter: 13:00 - Assessment and Plan (1) Diverticular disease Current Visit: Yes Status: Chronic The patient had takedown of colostomy and is now postoperative day 3. There is no return of bowel activity at this point. We will continue with nasogastric tube drainage, IV hydration, DVT prophylaxis and await bowel function. 01/31/2017. No flatus or bowel sounds yet. Continue nasogastric tube drainage and bowel rest and await bowel activity. Qualifiers: Diverticulosis site: diverticulosis of large intestine Diverticulosis bleeding: diverticulosis without bleeding Qualified Code(s): K57.30 - Diverticulosis of large intestine without perforation or abscess without bleeding Subjective Narrative: The patient has had takedown colostomy. He has no bowel sounds and has not passed flatus. The patient is afebrile and nasogastric tube is 550 per day at this point I would recommend continuing nasogastric tube drainage and await bowel function. Objective Vital Signs - Last 8 Hours Temp Pulse Resp BP Pulse Ox 01/31/17 10:39 98.7 F 76 18 152/94 96 01/31/17 10:26 18 96 01/31/17 07:35 98.6 F 70 18 135/77 95 Intake and Output 01/30/17 01/31/17 01/31/17 23:59 07:59 15:59 Intake Total 1000 / 1000 1100 / 1100 1000 / 1000 Output Total 720 / 720 1989 470 / 470 Balance 280 / 280 -890 / -890 530 / 530 Intake: IV Fluids 1000 / 1000 1100 / 1100 1000 / 1000 D5% And 0.45% Nacl 1000 1000 / 1000 1000 / 1000 1000 / 1000 Ml Bag 1,000 ML @ 100 mls /hr IVC .Q10H [facility] Rx#: [id number] Ofirmev 1,000 mg In 100 100 / 100 ml @ 400 mls/hr IVPB Q8HR [facility] Rx#:[id number] Oral 0 / 0 0 / 0 Output: Urine 600 / 600 1400 / 1400 450 / 450 Gastric Drainage 550 / 550 0 / 0 Wound Drainage 120 / 120 40 / 40 20 / 20 Medial Abdomen 120 / 120 40 / 40 20 / 20 Other: Meal NPO npo Weight 63.548 kg Blood Glucose* 119 124 123 Patient Weight 01/31/17 23:59 Weight 63.548 kg - General physical appearance other (mild pain) - Respiratory normal expansion, normal respiratory effort, clear to percussion, clear to auscultation - Cardiovascular Cardiovascular exam: Present: no murmurs/rubs/gallops - Abdomen Abdomen: Present: soft (No bowel sounds on auscultation) - Incision Incision: Present: clean and dry - Psychiatric oriented to time, oriented to person, oriented to place, speech is normal, memory intact - Labs 01/31/17 07:06 01/31/17 07:06 Diabetes panel 01/31/17 Range/Units 07:06 Sodium 137 (136-145) mEq/L Potassium 3.4 L (3.5-4.5) mEq/L Chloride 104 (98-109) mEq/L Carbon Dioxide 25 (19-29) mEq/L BUN 3 L (8-26) mg/dL Creatinine 0.56 L (0.72-1.25) mg/dL Glucose 125 H (70-99) mg/dL Calcium 8.4 L (8.6-10.8) mg/dL Calcium panel 01/31/17 Range/Units 07:06 Calcium 8.4 L (8.6-10.8) mg/dL Phosphorus 2.9 D (2.3-4.7) mg/dL Pituitary panel 01/31/17 Range/Units 07:06 Sodium 137 (136-145) mEq/L Potassium 3.4 L (3.5-4.5) mEq/L Chloride 104 (98-109) mEq/L Carbon Dioxide 25 (19-29) mEq/L BUN 3 L (8-26) mg/dL Creatinine 0.56 L (0.72-1.25) mg/dL Glucose 125 H (70-99) mg/dL Calcium 8.4 L (8.6-10.8) mg/dL Adrenal panel 01/31/17 Range/Units 07:06 Sodium 137 (136-145) mEq/L Potassium 3.4 L (3.5-4.5) mEq/L Chloride 104 (98-109) mEq/L Carbon Dioxide 25 (19-29) mEq/L BUN 3 L (8-26) mg/dL Creatinine 0.56 L (0.72-1.25) mg/dL Glucose 125 H (70-99) mg/dL Calcium 8.4 L (8.6-10.8) mg/dL - VTE Documentation of Mechanical Device: Intermittent pneumatic compression device Consult Discharge Plan - Plan Referrals: Caitie Guaman MD [Partnered Physician] - 02/17/17 10:05 am
[2017-01-31] MEDS ORDERED: Water for inj. (sterile) 10 ML IV ONE (15:32)
[2017-01-31] MEDS: *HR* LORazepam 2 MG/ML VIAL IVP PRN ×2 (15:33→21:46)
[2017-01-31] MEDS: *HR* HYDROmorphone 20 MG/20 ML PCA IVC PRN (21:04)
[2017-02-01 05:40] LABS: Basophils % 0.4 %; Eosinophils # 0.6 K/mcL (0.0-0.6); Eosinophils % 8.1 %; Hematocrit 34.4 % (37.5-50.1); Hemoglobin 11.4 g/dL (12.9-16.9); Immature Granulocytes % 0.4 % (0-4); Lymphocytes # 1.4 K/mcL (0.6-4.6); Lymphocytes % 17.7 %; Mean Corpuscular HGB Conc 33.1 g/dL (31.6-35.5); Mean Corpuscular Hemoglobin 30.2 pg (28.0-33.3); Mean Corpuscular Volume 91.2 fL (83.0-100.0); Mean Platelet Volume 9.8 fL (9.4-12.4); Monocytes # 0.8 K/mcL (0.0-1.3); Monocytes % 10.5 %; Platelet Count 199 K/mcL (140-400); Red Blood Count 3.77 M/mcL (4.19-5.50); Red Cell Distribution Width 13.3 % (11.5-14.5); Segmented Neutrophils % 62.9 %
[2017-02-01 05:42] LABS: BUN/Creatinine Ratio 8 (6-26); Calcium 8.7 mg/dL (8.6-10.8); Carbon Dioxide 26 mEq/L (19-29); Chloride 103 mEq/L (98-109); Glucose 99 mg/dL (70-99); Magnesium 1.5 mg/dL (1.6-2.6); Osmolality,Calculated 283 (280-300); Phosphorous 3.9 mg/dL (2.3-4.7); Potassium 3.3 mEq/L (3.5-4.5); Sodium 138 mEq/L (136-145); eGFR For African Americans > 60 (> 60); eGFR For Non-African Americans > 60 (> 60)
[2017-02-01 05:49] LABS: Blood Urea Nitrogen 5 mg/dL (8-26)
[2017-02-01] MEDS: Pantoprazole 40 MG VIAL IVP SCH (05:51)
[2017-02-01] MEDS ORDERED: Potassium Chloride 20 MEQ, Lidocaine 1% 2 ML in D5% in Water 250 ML IVPB ONE (07:33)
[2017-02-01] MEDS ORDERED: Magnesium Sulfate 2 GM in D5% in Water 100 ML IVPB ONE (07:33)
[2017-02-01] MEDS: Ipratropium/Albuterol Neb 3 ML IH SCH ×2 (07:48→19:40)
[2017-02-01] MEDS: D5% in 0.45% NACL w KCl 20 MEQ/1,000 ML MLS IVC SCH (07:58)
[2017-02-01] MEDS: Nicotine 7 MG PATCH.TD24 TD SCH (07:59)
--- NOTE | 2017-02-01 14:07 | General Surgery Progress Note ---
Date of Encounter: 02/01/17 Time of Encounter: 14:04 - Assessment and Plan (1) Diverticular disease Current Visit: Yes Status: Chronic POD #5 Colostomy revearsal awaiting return of bowel function, bowel sounds are present, ngt to gravity and start 300cc clears per shift, if N/V, pain distention place ngt back to LIWS ivf maintenance changed to with kcl dc crtts and start prn pain medication gi/dvt prophylaxis, restart heparin start IV reglan to see if helps with return of bowel function Daily dressing change Qualifiers: Diverticulosis site: diverticulosis of large intestine Diverticulosis bleeding: diverticulosis without bleeding Qualified Code(s): K57.30 - Diverticulosis of large intestine without perforation or abscess without bleeding (2) Tobacco abuse Current Visit: No Status: Chronic Nicotine patch smoking cessation education (3) Anxiety Current Visit: Yes Status: Acute Ativan every 6 hours as needed for anxiety (4) DVT prophylaxis Current Visit: No Status: Acute Ambulate hallways EPCDs heparin = restart (5) Hypokalemia Current Visit: Yes Status: Acute replaced, added K to fluids (6) Hypomagnesemia Current Visit: Yes Status: Acute replaced, recheck tomorrow Subjective Patient reports: no new complaints, feels better, still having pain, pain is less, no flatus, no bowel movement, afebrile Objective Vital Signs - Last 8 Hours Temp Pulse Resp BP Pulse Ox 02/01/17 11:14 97.8 F 76 18 142/86 94 02/01/17 07:48 18 95 02/01/17 06:53 98.1 F 63 19 128/73 95 Intake and Output 01/31/17 02/01/17 02/01/17 23:59 07:59 15:59 Intake Total 1000 / 1000 1000 / 1000 104 / 104 Output Total 580 / 580 900 / 900 725 / 725 Balance 420 / 420 100 / 100 -621 / -621 Intake: IV Fluids 1000 / 1000 1000 / 1000 104 / 104 D5% And 0.45% Nacl 1000 1000 / 1000 1000 / 1000 Ml Bag 1,000 ML @ 100 mls /hr IVC .Q10H [facility] Rx#: [id number] Magnesium Sulfate 2 GM In 104 / 104 Dextrose 5% 100 ML @ 100 mls/hr IVPB ONCE ONE Rx# :[id number] Oral 0 / 0 0 / 0 Output: Urine 500 / 500 600 / 600 550 / 550 Gastric Drainage 300 / 300 100 / 100 Wound Drainage 80 / 80 0 / 0 75 / 75 Medial Abdomen 80 / 80 0 / 0 75 / 75 Other: Meal NPO Weight 61.985 kg Blood Glucose* 112 127 Patient Weight 02/01/17 23:59 Weight 61.985 kg - General physical appearance well developed, well nourished, no distress - Eyes PERRL, normal ocular movement - ENT normal mucosa, normocephalic - Neck Neck exam: trachea midline - Respiratory normal expansion, clear to auscultation, other (cough) - Cardiovascular Cardiovascular exam: Present: RRR - Abdomen Abdomen: Present: bowel sounds present, soft, tender (appropriate post op tenderness) - Incision Incision: Present: clean and dry, intact (left abd ostomy site incision with packing, serous drainage) - Integumentary no rash, no growths - Neurologic CN 2-12 grossly intact - Musculoskeletal normal posture - Psychiatric oriented to time, oriented to person, oriented to place, speech is normal, memory intact - Labs 02/01/17 02:59 02/01/17 02:59 Short CBC 02/01/17 Range/Units 02:59 WBC 7.9 (4.3-11.1) K/mcL Hgb 11.4 L (12.9-16.9) g/dL Hct 34.4 L (37.5-50.1) % Plt Count 199 (140-400) K/mcL Neutrophils # 5.0 (1.6-8.9) K/mcL BMP 02/01/17 Range/Units 02:59 Sodium 138 (136-145) mEq/L Potassium 3.3 L (3.5-4.5) mEq/L Chloride 103 (98-109) mEq/L Carbon Dioxide 26 (19-29) mEq/L BUN 5 L (8-26) mg/dL Creatinine 0.61 L (0.72-1.25) mg/dL Glucose 99 (70-99) mg/dL Calcium 8.7 (8.6-10.8) mg/dL Vital Signs Temp Pulse Resp BP Pulse Ox 02/01/17 11:14 97.8 F 76 18 142/86 94 02/01/17 07:48 18 95 02/01/17 06:53 98.1 F 63 19 128/73 95 02/01/17 04:43 98.0 F 85 15 131/74 95 02/01/17 00:17 99.3 F 69 15 123/73 96 01/31/17 20:53 98.6 F 86 14 142/85 93 01/31/17 20:15 18 92 01/31/17 15:46 98.3 F 71 18 148/84 94 Intake and Output 01/31/17 02/01/17 02/01/17 23:59 07:59 15:59 Intake Total 1000 / 1000 1000 / 1000 104 / 104 Output Total 580 / 580 900 / 900 725 / 725 Balance 420 / 420 100 / 100 -621 / -621 Intake: IV Fluids 1000 / 1000 1000 / 1000 104 / 104 D5% And 0.45% Nacl 1000 1000 / 1000 1000 / 1000 Ml Bag 1,000 ML @ 100 mls /hr IVC .Q10H [facility] Rx#: [id number] Magnesium Sulfate 2 GM In 104 / 104 Dextrose 5% 100 ML @ 100 mls/hr IVPB ONCE ONE Rx# :[id number] Oral 0 / 0 0 / 0 Output: Urine 500 / 500 600 / 600 550 / 550 Gastric Drainage 300 / 300 100 / 100 Wound Drainage 80 / 80 0 / 0 75 / 75 Medial Abdomen 80 / 80 0 / 0 75 / 75 Other: Meal NPO Weight 61.985 kg Blood Glucose* 112 127 Patient Weight 02/01/17 23:59 Weight 61.985 kg - VTE Documentation of Mechanical Device: Intermittent pneumatic compression device Consult Discharge Plan - Plan Referrals: Caitie Guaman MD [Partnered Physician] - 02/17/17 10:05 am
[2017-02-01] MEDS: *HR* HYDROmorphone (PF) 1 MG/ML SYRINGE IVP PRN (15:58)
[2017-02-01] MEDS: *HR* Heparin 5,000 UNIT/ML VIAL SQ SCH (17:14)
[2017-02-01] MEDS: Metoclopramide 10 MG/2 ML VIAL IVP SCH (17:14)
[2017-02-02] MEDS: *HR* HYDROmorphone (PF) 1 MG/ML SYRINGE IVP PRN (00:03)
[2017-02-02] MEDS: Metoclopramide 10 MG/2 ML VIAL IVP SCH ×5 (00:03→23:35)
[2017-02-02 04:59] LABS: Basophils % 0.2 %; Eosinophils # 0.4 K/mcL (0.0-0.6); Hematocrit 36.8 % (37.5-50.1); Hemoglobin 12.4 g/dL (12.9-16.9); Immature Granulocytes % 0.3 % (0-4); Lymphocytes # 1.5 K/mcL (0.6-4.6); Lymphocytes % 17.4 %; Mean Corpuscular HGB Conc 33.7 g/dL (31.6-35.5); Mean Corpuscular Hemoglobin 29.7 pg (28.0-33.3); Mean Corpuscular Volume 88.2 fL (83.0-100.0); Mean Platelet Volume 9.7 fL (9.4-12.4); Monocytes # 0.8 K/mcL (0.0-1.3); Monocytes % 8.8 %; Neutrophils # 6.1 K/mcL (1.6-8.9); Platelet Count 236 K/mcL (140-400); Red Blood Count 4.17 M/mcL (4.19-5.50); Red Cell Distribution Width 13.2 % (11.5-14.5); Segmented Neutrophils % 68.3 %
[2017-02-02 05:16] LABS: BUN/Creatinine Ratio 10 (6-26); Blood Urea Nitrogen 6 mg/dL (8-26); Calcium 8.8 mg/dL (8.6-10.8); Carbon Dioxide 25 mEq/L (19-29); Chloride 107 mEq/L (98-109); Glucose 116 mg/dL (70-99); Osmolality,Calculated 289 (280-300); Potassium 3.6 mEq/L (3.5-4.5); Sodium 140 mEq/L (136-145); eGFR For African Americans > 60 (> 60); eGFR For Non-African Americans > 60 (> 60)
[2017-02-02] MEDS: Pantoprazole 40 MG VIAL IVP SCH (06:34)
[2017-02-02] MEDS: *HR* Heparin 5,000 UNIT/ML VIAL SQ SCH ×2 (06:34→17:13)
[2017-02-02] MEDS: Nicotine 7 MG PATCH.TD24 TD SCH (07:34)
[2017-02-02] MEDS ORDERED: *HR* OxyCODONE/APAP 5/325 TABLET PO PRN (08:42)
--- NOTE | 2017-02-02 08:56 | General Surgery Progress Note ---
Date of Encounter: 02/02/17 Time of Encounter: 08:30 - Assessment and Plan (1) Diverticular disease Current Visit: Yes Status: Chronic POD #5 Colostomy revearsal passed flatus this am, start clears, dc'd ngt start po prn pain medication gi/dvt prophylaxis, restart heparin restarted IV reglan to see if helps with return of bowel function Daily dressing change Qualifiers: Diverticulosis site: diverticulosis of large intestine Diverticulosis bleeding: diverticulosis without bleeding Qualified Code(s): K57.30 - Diverticulosis of large intestine without perforation or abscess without bleeding (2) Tobacco abuse Current Visit: No Status: Chronic Nicotine patch smoking cessation education (3) Anxiety Current Visit: Yes Status: Acute Ativan every 6 hours as needed for anxiety (4) DVT prophylaxis Current Visit: No Status: Acute Ambulate hallways EPCDs heparin = restart Subjective Patient reports: no new complaints, feels better, still having pain, pain is less, voiding w/o difficulty, flatus, no bowel movement, afebrile Objective Vital Signs - Last 8 Hours Temp Pulse Resp BP Pulse Ox 02/02/17 07:18 98.3 F 70 16 152/86 93 02/02/17 06:59 94 02/02/17 05:15 98.6 F 68 15 142/85 94 02/02/17 01:16 98.9 F 74 17 135/84 93 Intake and Output 02/01/17 02/02/17 02/02/17 23:59 07:59 15:59 Intake Total 240 / 240 463 / 463 Output Total 365 / 365 1040 / 1040 Balance -125 / -125 -577 / -577 Intake: IV Fluids 343 / 343 KCl 20mEq IN D5%-0.45 343 / 343 NACL 20 meq In 1,000 ml @ 100 mls/hr IVC .Q10H [facility] Rx#:[id number] Oral 120 / 120 120 / 120 Other 120 / 120 Output: Urine 325 / 325 1000 / 1000 Gastric Drainage 0 / 0 Wound Drainage 40 / 40 40 / 40 Medial Abdomen 40 / 40 40 / 40 Other: Meal NPO Weight 61.83 kg Blood Glucose* 116 103 Patient Weight 02/02/17 23:59 Weight 61.83 kg - General physical appearance well developed, well nourished, no distress - Eyes PERRL - ENT normal mucosa, normocephalic - Neck Neck exam: trachea midline - Respiratory normal expansion, clear to auscultation - Cardiovascular Cardiovascular exam: Present: RRR - Abdomen Abdomen: Present: bowel sounds present, soft, tender (appropriate post op tenderness) - Incision Incision: Present: clean and dry, intact (ostomy site packed) - Integumentary no rash, no growths - Neurologic CN 2-12 grossly intact - Musculoskeletal normal posture - Psychiatric oriented to time, oriented to person, oriented to place, speech is normal, memory intact - Labs 02/02/17 03:15 02/02/17 03:15 Short CBC 02/02/17 Range/Units 03:15 WBC 8.9 (4.3-11.1) K/mcL Hgb 12.4 L (12.9-16.9) g/dL Hct 36.8 L (37.5-50.1) % Plt Count 236 (140-400) K/mcL Neutrophils # 6.1 (1.6-8.9) K/mcL BMP 02/02/17 Range/Units 03:15 Sodium 140 (136-145) mEq/L Potassium 3.6 (3.5-4.5) mEq/L Chloride 107 (98-109) mEq/L Carbon Dioxide 25 (19-29) mEq/L BUN 6 L (8-26) mg/dL Creatinine 0.59 L (0.72-1.25) mg/dL Glucose 116 H (70-99) mg/dL Calcium 8.8 (8.6-10.8) mg/dL Vital Signs Temp Pulse Resp BP Pulse Ox 02/02/17 07:18 98.3 F 70 16 152/86 93 02/02/17 06:59 94 02/02/17 05:15 98.6 F 68 15 142/85 94 02/02/17 01:16 98.9 F 74 17 135/84 93 02/01/17 19:50 99.4 F 79 14 137/79 91 02/01/17 19:35 14 95 02/01/17 15:19 98.4 F 74 19 148/81 95 02/01/17 11:14 97.8 F 76 18 142/86 94 Intake and Output 02/01/17 02/02/17 02/02/17 23:59 07:59 15:59 Intake Total 240 / 240 463 / 463 Output Total 365 / 365 1040 / 1040 Balance -125 / -125 -577 / -577 Intake: IV Fluids 343 / 343 KCl 20mEq IN D5%-0.45 343 / 343 NACL 20 meq In 1,000 ml @ 100 mls/hr IVC .Q10H [facility] Rx#:[id number] Oral 120 / 120 120 / 120 Other 120 / 120 Output: Urine 325 / 325 1000 / 1000 Gastric Drainage 0 / 0 Wound Drainage 40 / 40 40 / 40 Medial Abdomen 40 / 40 40 / 40 Other: Meal NPO Weight 61.83 kg Blood Glucose* 116 103 Patient Weight 02/02/17 23:59 Weight 61.83 kg - VTE Documentation of Mechanical Device: Intermittent pneumatic compression device Consult Discharge Plan - Plan Referrals: Caitie Guaman MD [Partnered Physician] - 02/17/17 10:05 am
[2017-02-02] MEDS: Ipratropium/Albuterol Neb 3 ML IH SCH ×2 (11:07→21:22)
[2017-02-02] MEDS ORDERED: Water for inj. (sterile) 10 ML IV ONE (12:40)
[2017-02-02] MEDS: *HR* LORazepam 2 MG/ML VIAL IVP PRN (12:43)
[2017-02-02] MEDS: D5% in 0.45% NACL w KCl 20 MEQ/1,000 ML MLS IVC SCH ×2 (13:55→23:35)
[2017-02-03] MEDS: *HR* Heparin 5,000 UNIT/ML VIAL SQ SCH (05:34)
[2017-02-03] MEDS: Metoclopramide 10 MG/2 ML VIAL IVP SCH (05:34)
[2017-02-03] MEDS: Pantoprazole 40 MG VIAL IVP SCH (05:34)
[2017-02-03] MEDS: Ipratropium/Albuterol Neb 3 ML IH SCH (07:54)
[2017-02-03] MEDS: Nicotine 7 MG PATCH.TD24 TD SCH (08:15)
[2017-02-03 11:23] VITALS: BP 148/94
--- NOTE | 2017-02-03 11:30 | Discharge Summary ---
<ConcordiaLina Susan - Last Filed: 02/03/17 11:25> Date of Encounter: 02/03/17 Time of Encounter: 11:26 - Discharge Diagnosis (1) Diverticular disease Priority: Primary Status: Resolved Qualifiers: Diverticulosis site: diverticulosis of large intestine Diverticulosis bleeding: diverticulosis without bleeding Qualified Code(s): K57.30 - Diverticulosis of large intestine without perforation or abscess without bleeding (2) Tobacco abuse Priority: Secondary Status: Chronic (3) Anxiety Priority: Secondary Status: Acute - Discharge Medications Prescriptions: Docusate [Colace] 100 mg PO BID #60 capsule HYDROcodone/Acet 5/325 mg [[place] 5-325 mg] 1 tab PO Q4H PRN #30 tab PRN Reason: Pain LORazepam [Ativan] 1 mg PO TID PRN #10 tablet PRN Reason: Anxiety Home Medications: Naproxen Sodium [Aleve] 220 mg PO Q8H PRN 12/08/16 [History] Rivaroxaban [Xarelto] 20 mg PO DAILY 12/08/16 [History] Docusate [Colace] 100 mg PO BID #60 capsule 02/03/17 [Rx] HYDROcodone/Acet 5/325 mg [[place] 5-325 mg] 1 tab PO Q4H PRN #30 tab 02/03/17 [Rx ] LORazepam [Ativan] 1 mg PO TID PRN #10 tablet 02/03/17 [Rx] Allergies/Adverse Reactions: Allergies No Known Allergies Allergy (Verified 01/25/17 09:56) General Surgery Exam Initial Vital Signs Temp Pulse Resp BP Pulse Ox 98.0 F 83 18 147/93 98 01/25/17 09:52 01/25/17 09:52 01/25/17 09:52 01/25/17 09:52 01/25/17 09:52 - General physical appearance well developed, well nourished, no distress - Eyes normal ocular movement - ENT normal mucosa, atraumatic, normocephalic - Neck trachea midline - Respiratory normal respiratory effort, clear to auscultation - Cardiovascular Cardiovascular exam: Present: RRR - Abdomen Abdomen general surgery: Present: bowel sounds present, soft, tender (minimal, expected post-operative tenderness), wound (ostomy site with 1/4 inch packing with scant amount of serousang. drainage noted) - Incision Incision: Present: clean and dry, intact - Integumentary Integumentary general surgery: Present: warm and dry - Neurologic Present: CN 2-12 grossly intact - Musculoskeletal Present: normal gait, normal posture - Psychiatric Psychiatric general surgery: Present: appropriate, oriented to person, oriented to place, oriented to time, speech is normal, memory intact Date of admission: 01/25/17 12:16 Primary care physician: Alicja Aguila CNP Discharging clinician: Caitie Guaman ([facility]) Anticipated date of discharge: 02/03/17 - Patient Status Disposition: Home, Self-Care Condition: Good Functional capacity at discharge: independent ambulation Overall status at discharge: patient is progressing back to baseline - Discharge Instructions Follow Up With: Caitie Guaman MD [Partnered Physician] - 02/17/17 10:05 am Additional Instructions: #1 may shower, no tub bath for 2 weeks #2 wash incisions with soap and water and pat dry daily #3 no lifting, pushing, pulling more than 15 pounds for the next 5 weeks #4 no driving until off narcotics for 24 hours and able to safely react in the car #5 may climb stairs left abdomen ostomy site wound - wash with soap and water daily, pack wound with 1/4" plain packing, cover with 4x4 gauze and secure with medipore tape, change daily - Diet and Activity Activity: other (See additional instructions above) Diet: advance to your usual diet (as tolerated), other - Hospital Course Hospital course: Mr. Covarrubias is a 56 year old male who is POD #7 from a lysis of adhesions for 2 hours, colostomy reversal, takedown of splenic flexure with Dr. Guaman. I remained on bowel rest after his surgery while awaiting return of bowel function. He did have an NG tube to low intermittent wall suction. He was supported with IV fluids while nothing by mouth. He began to have bowel function on POD #6 (flatus) and was given a clear liquid diet. He has been advanced to full liquids and is tolerating this without difficulty. His vital signs are stable and he is afebrile. His pain is well-controlled. He is voiding and ambulating without difficulty. We will begin discharge planning and plan for outpatient follow-up in the next 10-14 days. He has been instructed on how to pack his old ostomy site and he verbalizes understanding. We will continue this until seen in follow-up. - Time Spent with Patient Total time spent providing and/or coordinating discharge services: Less than 30 minutes - Attending Attestation I examined this patient and my medical decision-making was reviewed with the [employer]WMEMBER/PA/Advanced Practice Nurse/Resident Physician. I agree with the documented findings, disposition and treatment plan as described except to the extent set forth below. <Caitie Guaman - Last Filed: 02/04/17 10:07> Date of Encounter: 02/03/17 - Discharge Diagnosis (1) Tobacco abuse Status: Chronic (2) Anxiety Status: Acute (3) DVT prophylaxis Status: Acute General Surgery Exam Initial Vital Signs Temp Pulse Resp BP Pulse Ox 98.0 F 83 18 147/93 98 01/25/17 09:52 01/25/17 09:52 01/25/17 09:52 01/25/17 09:52 01/25/17 09:52 Date of admission: 01/25/17 12:16 Primary care physician: Alicja Aguila CNP - Hospital Course Hospital course: Mr. Covarrubias is a 57 year old male - Time Spent with Patient Total time spent providing and/or coordinating discharge services:
== END 2017-02-03 14:23 | disposition home or self-care (01) | DRG 330 ==
LOC: SAMDAY 09:39 → 3ANU 12:16
PROVIDERS: ADMIT Surgery; ATTEND Surgery

== ENCOUNTER 2019-05-08 07:14 | Inpatient (IN) ==
[2019-05-08 08:17] LABS: Basophils # 0.1 K/mcL (0.0-0.2); Basophils % 0.3 %; Eosinophils # 0.1 K/mcL (0.0-0.6); Eosinophils % 0.5 %; Hematocrit 49.4 % (37.5-50.1); Hemoglobin 16.6 g/dL (12.9-16.9); Immature Granulocytes % 0.3 % (0-4); Lymphocytes # 1.7 K/mcL (0.6-4.6); Lymphocytes % 9.5 %; Mean Corpuscular HGB Conc 33.6 g/dL (31.6-35.5); Mean Corpuscular Hemoglobin 30.7 pg (28.0-33.3); Mean Corpuscular Volume 91.5 fL (83.0-100.0); Mean Platelet Volume 10.1 fL (9.4-12.4); Monocytes # 0.8 K/mcL (0.0-1.3); Monocytes % 4.5 %; Neutrophils # 15.2 K/mcL (1.6-8.9); Platelet Count 229 K/mcL (140-400); Red Cell Distribution Width 13.6 % (11.5-14.5); Segmented Neutrophils % 84.9 %; White Blood Count 17.9 K/mcL (4.3-11.1)
--- NOTE | 2019-05-08 08:29 | Emergency Department Note ---
Disposition Clinical Impression: Small bowel obstruction Disposition: Admitted As Inpatient Condition: Fair Time of Disposition: 09:10 Abdominal Pain HPI - General Chief Complaint: ED Abdominal Pain Stated Complaint: abd pain Time Seen by Provider: 05/08/19 07:42 Source: patient Mode of arrival: ambulatory Limitations: no limitations Nursing Notes Reviewed: Yes Vital Signs Reviewed: Yes - History of Present Illness HPI Narrative: 59-year-old male presents with abdominal pain. Patient stated it was intermittent cramping pain in bri-umbilic area since 2 PM yesterday. Associated with nausea. No vomiting. Patient stated when he had a pain, the pain level was 11/10. Patient had history of diverticulitis with perforation. Patient had partical bowel removal and colonostomy at that time, which was reversed. Patient stated his last bowel movement was on Wednesday (3 days ago). Pt Subjective Complaint: abdominal pain Onset (ago): day(s) (1) Consistency: intermittent Location: periumbilical Pain Scale: 8 Quality: cramping - Related Data Home Medications Medication Instructions Recorded Confirmed Naproxen Sodium [Aleve] 220 mg PO Q8H PRN 12/08/16 01/25/17 Rivaroxaban [Xarelto] 20 mg PO DAILY 12/08/16 01/25/17 Ibuprofen [Ibu] 1 tab PO Q6HR PRN 05/08/19 05/08/19 Previous Rx's Medication Instructions Recorded Docusate [Colace] 100 mg PO BID #60 capsule 02/03/17 HYDROcodone/Acet 5/325 mg [[place] 1 tab PO Q4H PRN #30 tab 02/03/17 5-325 mg] LORazepam [Ativan] 1 mg PO TID PRN #10 tablet 02/03/17 Docusate Sodium [Colace] 100 mg PO BID PRN #20 capsule 05/15/17 Polyethylene Glycol 3350 [MiraLAX 119 gm PO BID PRN #1 powder 05/15/17 bowel prep] Polyethylene Glycol 3350 [MiraLAX] 17 gm PO DAILY #30 powd.pack 12/20/18 Allergies Allergy/AdvReac Type Severity Reaction Status Date / Time No Known Allergies Allergy Verified 12/20/18 07:55 Constitutional: Denies: fever, chills Eyes: Denies: eye pain ENT ED: Denies: ear pain Cardiovascular: Denies: chest pain Respiratory: Denies: cough Gastrointestinal: Reports: abdominal pain, nausea, constipation. Denies: vomiting Genitourinary: Denies: urgency Musculoskeletal: Denies: back pain Integumentary: Denies: rash Neurological: Denies: headache Psychiatric: Denies: anxiety Endocrine: Denies: fatigue Hematological/Lymphatic: Denies: easy bleeding Allergic/Immunologic: Denies: facial swelling Abdominal Pain PMH - Past Medical History Medical history: Reports: other Male Surgical History: Reports: other Psychiatric history: Reports: anxiety - Social History Smoking status: Current every day smoker Alcohol use: Reports: rarely Drug use: Reports: none Physical Exam - General Limitations: no limitations General appearance: alert, in no apparent distress - Head Head exam: atraumatic - Eye Eye exam: Present: normal appearance - ENT ENT exam: normal exam - Neck Neck exam: Present: normal inspection - Chest Chest inspection: Present: normal inspection - Respiratory Respiratory exam: Present: normal lung sounds bilaterally - Cardiovascular Cardiovascular exam: Present: regular rate - Abdominal Exam Abdominal exam: Present: soft, tenderness Abdominal tenderness: Present: diffuse - Extremities Exam Extremities exam: Present: normal inspection - Back Exam Back exam: Present: normal inspection - Neurological Exam Neurological exam: Present: alert, oriented X3 - Psychiatric Psychiatric exam: Present: normal affect - Skin Skin exam: Present: warm, intact Course Vital Signs Temperature 97.9 F 05/08/19 07:22 Pulse Rate 95 05/08/19 07:22 Respiratory Rate 16 05/08/19 07:22 Blood Pressure 179/64 05/08/19 07:22 O2 Sat by Pulse Oximetry 99 05/08/19 07:22 Temperature 97.8 F 05/08/19 12:09 Pulse Rate 64 05/08/19 12:09 Respiratory Rate 16 05/08/19 12:09 Blood Pressure 120/75 05/08/19 12:09 O2 Sat by Pulse Oximetry 97 05/08/19 12:09 Oxygen Delivery Oxygen Delivery Room Air Abdominal Pain - MDM Narrative Medical decision making narrative: 59 year old male with history of diverticulitis with perforation, partial bowel removal and colonstomy presents with acute abdominal pain, nausea and constipat ion. Labs white cell 17. Abdomen CT indicated small bowel obstruction. Spoke with general surgeon Dr. Lloyd. Pt is accepted to surgery. Dr. Yeh has seen the patient and agrees the above plan. - Lab Data Lab results reviewed: Yes I reviewed the patient's lab results. Result diagrams: 05/08/19 08:05 05/08/19 08:05 Lab Results 05/08/19 05/08/19 05/08/19 Range/Units 08:05 08:05 09:06 WBC 17.9 H (4.3-11.1) K/mcL RBC 5.40 (4.19-5.50) M/mcL Hgb 16.6 (12.9-16.9) g/dL Hct 49.4 (37.5-50.1) % MCV 91.5 (83.0-100.0) fL MCH 30.7 (28.0-33.3) pg MCHC 33.6 (31.6-35.5) g/dL RDW 13.6 (11.5-14.5) % Plt Count 229 (140-400) K/mcL MPV 10.1 (9.4-12.4) fL Immature Gran % 0.3 (0-4) % Seg Neutrophils % 84.9 % Lymphocytes % 9.5 % Monocytes % 4.5 % Eosinophils % 0.5 % Basophils % 0.3 % Neutrophils # 15.2 H (1.6-8.9) K/mcL Lymphocytes # 1.7 (0.6-4.6) K/mcL Monocytes # 0.8 (0.0-1.3) K/mcL Eosinophils # 0.1 (0.0-0.6) K/mcL Basophils # 0.1 (0.0-0.2) K/mcL Sodium 140 (136-145) mEq/L Potassium 3.8 (3.5-5.1) mEq/L Chloride 102 (98-107) mEq/L Carbon Dioxide 25 (23-29) mEq/L BUN 12 (6-20) mg/dL Creatinine 0.88 (0.70-1.30) mg/dL Est GFR ( Amer) > 60 (> 60) Est GFR (Non-Af Amer) > 60 (> 60) BUN/Creatinine Ratio 14 (6-26) Glucose 133 H (70-105) mg/dL Calculated Osmolality 292 (280-300) Lactic Acid 0.9 (0.5-2.2) mmol/L Calcium 9.9 (8.6-10.3) mg/dL Total Bilirubin 0.9 (0.3-1.0) mg/dL Direct Bilirubin 0.2 (0.0-0.2) mg/dL Indirect Bilirubin 0.7 (0.0-1.2) mg/dL AST 12 L (13-39) Units/L ALT 15 (7-52) Units/L Alkaline Phosphatase 137 H (34-104) Units/L Serum Total Protein 7.6 (6.4-8.9) g/dL Albumin 4.6 (3.5-5.7) g/dL Globulin 3.0 (2.4-3.5) g/dL Albumin/Globulin Ratio 1.5 (1.1-2.2) Lipase 4 L (11-82) Units/L Urine Color (Yellow) Urine Clarity (Clear) Urine pH (5.0-8.0) pH Units Ur Specific [place] (1.010-1.025) Urine Protein (Neg-Trace) mg/dL Urine Glucose (UA) (Normal) mg/dL Urine Ketones (Negative) mg/dL Urine Blood (Negative) Urine Nitrite (Negative) Urine Bilirubin (Negative) Urine Urobilinogen (Normal) mg/dL Ur Leukocyte Esterase (Negative) Urine Microscopic RBC (0-3) per hpf Urine Microscopic WBC (0-3) per hpf Ur Squamous Epith Cells (None-Few) per lpf Urine Bacteria (None-Few) per hpf Hyaline Casts (None-Few) per lpf Ur Culture Indicated? (NO) 05/08/19 Range/Units 09:20 WBC (4.3-11.1) K/mcL RBC (4.19-5.50) M/mcL Hgb (12.9-16.9) g/dL Hct (37.5-50.1) % MCV (83.0-100.0) fL MCH (28.0-33.3) pg MCHC (31.6-35.5) g/dL RDW (11.5-14.5) % Plt Count (140-400) K/mcL MPV (9.4-12.4) fL Immature Gran % (0-4) % Seg Neutrophils % % Lymphocytes % % Monocytes % % Eosinophils % % Basophils % % Neutrophils # (1.6-8.9) K/mcL Lymphocytes # (0.6-4.6) K/mcL Monocytes # (0.0-1.3) K/mcL Eosinophils # (0.0-0.6) K/mcL Basophils # (0.0-0.2) K/mcL Sodium (136-145) mEq/L Potassium (3.5-5.1) mEq/L Chloride (98-107) mEq/L Carbon Dioxide (23-29) mEq/L BUN (6-20) mg/dL Creatinine (0.70-1.30) mg/dL Est GFR ( Amer) (> 60) Est GFR (Non-Af Amer) (> 60) BUN/Creatinine Ratio (6-26) Glucose (70-105) mg/dL Calculated Osmolality (280-300) Lactic Acid (0.5-2.2) mmol/L Calcium (8.6-10.3) mg/dL Total Bilirubin (0.3-1.0) mg/dL Direct Bilirubin (0.0-0.2) mg/dL Indirect Bilirubin (0.0-1.2) mg/dL AST (13-39) Units/L ALT (7-52) Units/L Alkaline Phosphatase (34-104) Units/L Serum Total Protein (6.4-8.9) g/dL Albumin (3.5-5.7) g/dL Globulin (2.4-3.5) g/dL Albumin/Globulin Ratio (1.1-2.2) Lipase (11-82) Units/L Urine Color Dark Yellow (Yellow) Urine Clarity Clear (Clear) Urine pH 8.0 (5.0-8.0) pH Units Ur Specific [place] > 1.030 H (1.010-1.025) Urine Protein 30 H (Neg-Trace) mg/dL Urine Glucose (UA) Normal (Normal) mg/dL Urine Ketones 40 H (Negative) mg/dL Urine Blood Negative (Negative) Urine Nitrite Negative (Negative) Urine Bilirubin Small H (Negative) Urine Urobilinogen Normal (Normal) mg/dL Ur Leukocyte Esterase Negative (Negative) Urine Microscopic RBC 3-5 H (0-3) per hpf Urine Microscopic WBC 0-3 (0-3) per hpf Ur Squamous Epith Cells Moderate H (None-Few) per lpf Urine Bacteria None Seen (None-Few) per hpf Hyaline Casts None Seen (None-Few) per lpf Ur Culture Indicated? NO (NO) - Radiology Data Radiology results reviewed: Yes I reviewed the patient's radiology results. HISTORY: ORDERING SYSTEM PROVIDED HISTORY: abd pain and constipation 59-year-old male with abdominal pain and constipation FINDINGS: Lower Chest: Mild respiratory motion at the visualized lung bases. Calcified granulomata in the right lower lobe. Small hiatal hernia. No free intra-abdominal air identified. Organs: Gallbladder, spleen, kidneys, and pancreas grossly unremarkable in appearance. No obstructing renal calculus, hydronephrosis or hydroureter. Scattered calcifications throughout the spleen consistent with old granulomatous disease. GI/Bowel: Multiple small bowel loops adherent to the right anterior abdominal wall. Multiple fluid-filled dilated proximal small bowel loops are present with relative change in caliber of the small bowel in the anterior right abdomen where the bowel loops adherent to the abdominal wall anteriorly on the right. Relative collapse of distal and mid small bowel loops. Fat stranding and wall thickening involving dilated small bowel loops in the anterior aspect of the right side of the abdomen. Pelvis: Urinary bladder is collapsed. No significant free fluid in the pelvis. Small fat containing left inguinal hernia. No inguinal or pelvic sidewall lymphadenopathy. Calcifications in the prostate. Circumferential suture material/reanastomosis in the rectosigmoid colon. Mild scattered colonic diverticulosis. Mild stool burden. Appendix is not definitively visualized. Peritoneum/Retroperitoneum: Atherosclerotic calcification of the abdominal aorta and branch vasculature. No retroperitoneal lymphadenopathy. Psoas muscles normal in size and symmetric in appearance. Bones/Soft Tissues: No acute osseous abnormality identified. Moderate diffuse degenerative changes throughout the spine. Mild to moderate levoscoliosis of the thoracolumbar spine. CT/CT abd pelvis wo no iv no oral IMPRESSION: 1. Findings are concerning for small bowel obstruction. Transition point is felt to be in the region of the right anterior abdominal wall where multiple small bowel loops are adherent to the right anterior abdominal wall. Inflammatory stranding and wall thickening involving dilated small bowel loops in the right side of the abdomen. Correlation with lactate levels is recommended as secondary ischemic process difficult to entirely exclude. 2. Small fat containing left inguinal hernia. 3. Reanastomosis in the rectosigmoid colon. Mild scattered colonic diverticulosis. 4. Old granulomatous disease. 5. Small hiatal hernia. Critical results were called by Dr. Roberto Tesfaye MD to Dr. Rao Dailey 05/08/2019 at 08:49. D/ / 05/08/2019 08:59:01 Roberto Tesfaye MD / Naila cabrera Interpreting Provider: Roberto Tesfaye MD
[2019-05-08] MEDS ORDERED: Ketorolac 15 MG/ML VIAL IVP ONE (08:30)
[2019-05-08] MEDS ORDERED: Ondansetron 4 MG/2 ML VIAL IVP ONE (08:30)
[2019-05-08] MEDS ORDERED: *HR* FentaNYL (PF) 100 MCG/2 ML VIAL IVP ONE (08:31)
[2019-05-08 08:36] LABS: Alanine Aminotransferase 15 Units/L (7-52); Albumin 4.6 g/dL (3.5-5.7); Albumin/Globulin Ratio 1.5 (1.1-2.2); Alkaline Phosphatase 137 Units/L (34-104); Aspartate Amino Transferase 12 Units/L (13-39); BUN/Creatinine Ratio 14 (6-26); Bilirubin,Direct 0.2 mg/dL (0.0-0.2); Bilirubin,Indirect 0.7 mg/dL (0.0-1.2); Bilirubin,Total 0.9 mg/dL (0.3-1.0); Blood Urea Nitrogen 12 mg/dL (6-20); Calcium 9.9 mg/dL (8.6-10.3); Carbon Dioxide 25 mEq/L (23-29); Chloride 102 mEq/L (98-107); Glucose 133 mg/dL (70-105); Lipase 4 Units/L (11-82); Osmolality,Calculated 292 (280-300); Potassium 3.8 mEq/L (3.5-5.1); Sodium 140 mEq/L (136-145); Total Protein 7.6 g/dL (6.4-8.9); eGFR For African Americans > 60 (> 60); eGFR For Non-African Americans > 60 (> 60)
[2019-05-08 09:47] LABS: Bilirubin,Urine Small (Negative); Blood,Urine Negative (Negative); Clarity,Urine Clear (Clear); Color,Urine Dark Yellow (Yellow); Glucose,Urine (UA) Normal (Normal); Ketones,Urine 40 mg/dL (Negative); Leukocyte Esterase,Urine Negative (Negative); Nitrite,Urine Negative (Negative); Protein,Urine 30 mg/dL (Neg-Trace); Specific Gravity,Urine > 1.030 (1.010-1.025); Urobilinogen,Urine Normal (Normal)
[2019-05-08 09:50] LABS: Bacteria,Urine None Seen per hpf (None-Few); Hyaline Casts,Urine None Seen per lpf (None-Few); Squamous Epithelial Cell,Urine Moderate per lpf (None-Few); WBC,Urine 0-3 per hpf (0-3)
[2019-05-08] MEDS ORDERED: Ondansetron 4 MG/2 ML VIAL IVP PRN (10:01)
[2019-05-08] MEDS ORDERED: *HR* Promethazine 25 MG/ML VIAL IVP PRN (10:01)
[2019-05-08] MEDS ORDERED: Saliva Stimulant 100ml BOTTLE PO PRN (10:04)
[2019-05-08] MEDS ORDERED: Chloraseptic Spray 177 ML BOTTLE MM PRN (10:05)
--- NOTE | 2019-05-08 12:51 | General Surg History&Physical ---
<Janay Haines Dom - Last Filed: 05/08/19 16:12> Date of Encounter: 05/08/19 Time of Encounter: 10:20 Assessment and Plan (1) Abnormal CT of the abdomen Current Visit: Yes Status: Acute The assessment and plan as outlined above was discussed with the patient and/or family members who expressed understanding and agreement. All questions were answered. Pt with history of Leblanc's and reversal in 2017 (Dr. Guaman). CT 05/08/2019 w/o contrast is concerning for ileus vs gastroenteritis given his findings of absent bowel sounds. He has had not vomiting and denies nausea at time of assessment. We will hold off on NG at this time. Plan: NPO Bowel rest IV hydration Repeat am labs Continue watchful waiting GI and DVT prophylaxis (2) Smoking addiction Current Visit: Yes Status: Acute The assessment and plan as outlined above was discussed with the patient and/or family members who expressed understanding and agreement. All questions were answered. smoking cessation Aggressive pulmonary toileting (3) Slow transit constipation Current Visit: Yes Status: Acute The assessment and plan as outlined above was discussed with the patient and/or family members who expressed understanding and agreement. All questions were answered. Avoid stimulant laxatives. Once PO is acceptable, will initiate a bowel regimen History of Present Illness Chief complaint: abdominal pain HPI: Mr. Covarrubias is a 59 year old male who presented 05/08/2019 with intermittent cramping pain noted around his belly button sense 2 PM on 05/07/2019. He said it was associated with nausea but denies have any vomiting. He was passing gas and has had a bowel movement. He notes a history of a Leblanc's procedure with colostomy reversal in 2017. He does not take any medications. He reports he recently saw his PCP (Alicja Aguila CNP) for a checkup and he was noted to overall be doing well. He was recommended to increases water intake, increase exercise, and quit smoking. He denies fever, chills, headache, dizziness, chest pain, shortness of breath, black, bloody, or tarry stool. He endorses intermittent constipation for which he has taken Dulcolax. His canonical course thus far has included a CT of the abdomen and pelvis without contrast which noted multiple small bowel loops adherent to the right anterior abdominal wall, multiple fluid filled dilated proximal small bowel loops, inflammatory stranding and thickening of the small bowel, small fat containing left inguinal hernia, mild colonic diverticulosis in the small hiatal hernia; his gallbladder, spleen, and pancreas were grossly unremarkable. Laboratory studies have included in increased white blood cell count at 17.9, his lactic acid is normal at 0.9, his alkaline phosphatase is 137. We have admitted him to the hospital for further workup and management. Past Med Surg Social Fam HX - Past Medical History Source: patient, old records reviewed Medical history: other Additional medical history: diverticulosis; perforated diverticulitis, basal cell carcinoma (right knows), portal venous thrombosis Psychiatric history: anxiety - Past Surgical History Surgical History: appendectomy, cancer surgery, orthopedic, other, other Additional surgical history: diverticulitis sx, colostomy with reversal, cancer on nose, carpal tunnel surgery, right rotator cuff repair - Social History Smoking Status: Current every day smoker Packs per day: 1.5 Smokeless Tobacco Status: No Alcohol use: occasionally Drug use: none Occupational status: employed Current living situation: Home - Independent Activity Level: Independent ambulation - Family History Father Family Member Ethnicity: Non- Living Status: Hx Family Cardiac Disorders: No Hx Family Respiratory Disorders: No Hx Family Cancer: Yes Hx Family GI Disorders: No Hx Family Endocrine Disorder: Yes Hx Family Neuromuscular Disorders: No Hx Family Neurologic Disorders: No Hx Family HEENT Disorders: No Hx Family Autoimmune Disorders: No Medications and Allergies Ibuprofen [Ibu] 1 tab PO Q6HR PRN 05/08/19 [History] 3 Allergy/AdvReac Type Severity Reaction Status Date / Time No Known Allergies Allergy Verified 12/20/18 07:55 Review of Systems All systems PM: reviewed and no additional remarkable complaints except as stated All systems PM: The remainder of the systems were reviewed and are negative General Surgery Exam Initial Vital Signs Temp Pulse Resp BP Pulse Ox 97.9 F 95 16 179/64 99 05/08/19 07:22 05/08/19 07:22 05/08/19 07:22 05/08/19 07:22 05/08/19 07:22 - General physical appearance well developed, well nourished, no distress - Eyes normal ocular movement - ENT atraumatic, normocephalic. negative: normal nares (Noted decreased size of right nares) - Neck trachea midline - Respiratory normal expansion, normal respiratory effort - Cardiovascular Cardiovascular exam: Present: RRR - Abdomen Abdomen general surgery: Present: soft, non tender. Absent: bowel sounds present, guarding, rebound - Integumentary Integumentary general surgery: Present: warm and dry - Neurologic Present: normal sensation - Musculoskeletal Present: normal posture - Psychiatric Psychiatric general surgery: Present: A&Ox3 Results - Labs 05/08/19 08:05 05/08/19 08:05 Abnormal lab results WBC 17.9 K/mcL (4.3-11.1) H 05/08/19 08:05 Neutrophils # 15.2 K/mcL (1.6-8.9) H 05/08/19 08:05 Glucose 133 mg/dL (70-105) H 05/08/19 08:05 AST 12 Units/L (13-39) L 05/08/19 08:05 Alkaline Phosphatase 137 Units/L (34-104) H 05/08/19 08:05 Lipase 4 Units/L (11-82) L 05/08/19 08:05 Ur Specific [place] > 1.030 (1.010-1.025) H 05/08/19 09:20 Urine Protein 30 mg/dL (Neg-Trace) H 05/08/19 09:20 Urine Ketones 40 mg/dL (Negative) H 05/08/19 09:20 Urine Bilirubin Small (Negative) H 05/08/19 09:20 Urine Microscopic RBC 3-5 per hpf (0-3) H 05/08/19 09:20 Ur Squamous Epith Cells Moderate per lpf (None-Few) H 05/08/19 09:20 Diabetes panel 05/08/19 Range/Units 08:05 Sodium 140 (136-145) mEq/L Potassium 3.8 (3.5-5.1) mEq/L Chloride 102 (98-107) mEq/L Carbon Dioxide 25 (23-29) mEq/L BUN 12 (6-20) mg/dL Creatinine 0.88 (0.70-1.30) mg/dL Glucose 133 H (70-105) mg/dL Calcium 9.9 (8.6-10.3) mg/dL AST 12 L (13-39) Units/L ALT 15 (7-52) Units/L Alkaline Phosphatase 137 H (34-104) Units/L Albumin 4.6 (3.5-5.7) g/dL Calcium panel 05/08/19 Range/Units 08:05 Calcium 9.9 (8.6-10.3) mg/dL Albumin 4.6 (3.5-5.7) g/dL Pituitary panel 05/08/19 Range/Units 08:05 Sodium 140 (136-145) mEq/L Potassium 3.8 (3.5-5.1) mEq/L Chloride 102 (98-107) mEq/L Carbon Dioxide 25 (23-29) mEq/L BUN 12 (6-20) mg/dL Creatinine 0.88 (0.70-1.30) mg/dL Glucose 133 H (70-105) mg/dL Calcium 9.9 (8.6-10.3) mg/dL Adrenal panel 05/08/19 Range/Units 08:05 Sodium 140 (136-145) mEq/L Potassium 3.8 (3.5-5.1) mEq/L Chloride 102 (98-107) mEq/L Carbon Dioxide 25 (23-29) mEq/L BUN 12 (6-20) mg/dL Creatinine 0.88 (0.70-1.30) mg/dL Glucose 133 H (70-105) mg/dL Calcium 9.9 (8.6-10.3) mg/dL Total Bilirubin 0.9 (0.3-1.0) mg/dL AST 12 L (13-39) Units/L ALT 15 (7-52) Units/L Alkaline Phosphatase 137 H (34-104) Units/L Albumin 4.6 (3.5-5.7) g/dL All other labs normal. - Imaging CT scan - abdomen: report reviewed, image reviewed CT scan - pelvis: report reviewed, image reviewed <Caitie Gumaan - Last Filed: 05/09/19 07:49> Date of Encounter: 05/08/19 Time of Encounter: 18:25 Assessment and Plan (1) Abnormal CT of the abdomen Current Visit: Yes Status: Acute The assessment and plan as outlined above was discussed with the patient and/or family members who expressed understanding and agreement. All questions were answered. CT reviewed by myself, not necessarily a small bowel obstruction picture or clinically, will monitor conservatively and agree with holding off on ngt for now, patient requests something to help him have a bm - miralax daily patient is soft and nontender on exam with good bowel sounds, no bm since wednesday, is passing flatus ivf hydration prn pain control serial abdominal exams gi/dvt prophylaxis (2) Smoking addiction Current Visit: Yes Status: Acute The assessment and plan as outlined above was discussed with the patient and/or family members who expressed understanding and agreement. All questions were answered. (3) Slow transit constipation Current Visit: Yes Status: Acute The assessment and plan as outlined above was discussed with the patient and/or family members who expressed understanding and agreement. All questions were answered. (4) Leukocytosis Current Visit: No Status: Acute The assessment and plan as outlined above was discussed with the patient and/or family members who expressed understanding and agreement. All questions were answered. likely just due to small bowel distention, will trend Qualifiers: Leukocytosis type: unspecified Qualified Code(s): D72.829 - Elevated white blood cell count, unspecified History of Present Illness HPI: Mr. Covarrubias is a 59 year old male well known to me. He states about 2 days ago he began having generalized abdominal pain. Sometimes pain is sharp, others crampy. He ate yesterday in hopes that it would help the pain but it actually made it worse, and he had significant nausea without emesis. No fevers, chills or night sweats. Last bm was wednesday, none since. Still passing flatus. Abdomen is distended. He has been having issues with constipation recently and has been taking dulcolax prn for this. He presented to ED due to the pain and labs and CT were done. Labs showed elevated wbc and CT with dilated loops small bowel p redominantly in right abdomen. Patient does have an incisional hernia Past Med Surg Social Fam HX - Past Surgical History Surgical History: cancer surgery (nose basal cell excision), other (Sheila, colostomy reversal) Review of Systems All systems PM: reviewed and no additional remarkable complaints except as stated All systems PM: The remainder of the systems were reviewed and are negative General Surgery Exam Initial Vital Signs Temp Pulse Resp BP Pulse Ox 97.9 F 95 16 179/64 99 05/08/19 07:22 05/08/19 07:22 05/08/19 07:22 05/08/19 07:22 05/08/19 07:22 - General physical appearance well developed, well nourished, no distress - Eyes PERRL, normal ocular movement - ENT normal mucosa, atraumatic - Neck trachea midline - Respiratory normal expansion, normal respiratory effort - Cardiovascular Cardiovascular exam: Present: RRR - Abdomen Abdomen general surgery: Present: bowel sounds present, soft, non tender, distended. Absent: guarding, rebound Hernia: Present: incisional - Integumentary Integumentary general surgery: Present: warm and dry - Neurologic Present: CN 2-12 grossly intact - Musculoskeletal Present: normal posture - Psychiatric Psychiatric general surgery: Present: A&Ox3 Results - Labs 05/09/19 05:52 05/09/19 05:52 Abnormal lab results WBC 17.9 K/mcL (4.3-11.1) H 05/08/19 08:05 Neutrophils # 15.2 K/mcL (1.6-8.9) H 05/08/19 08:05 Chloride 109 mEq/L (98-107) H 05/09/19 05:52 Glucose 133 mg/dL (70-105) H 05/08/19 08:05 Calcium 8.3 mg/dL (8.6-10.3) L 05/09/19 05:52 AST 12 Units/L (13-39) L 05/08/19 08:05 Alkaline Phosphatase 137 Units/L (34-104) H 05/08/19 08:05 Lipase 4 Units/L (11-82) L 05/08/19 08:05 Ur Specific [place] > 1.030 (1.010-1.025) H 05/08/19 09:20 Urine Protein 30 mg/dL (Neg-Trace) H 05/08/19 09:20 Urine Ketones 40 mg/dL (Negative) H 05/08/19 09:20 Urine Bilirubin Small (Negative) H 05/08/19 09:20 Urine Microscopic RBC 3-5 per hpf (0-3) H 05/08/19 09:20 Ur Squamous Epith Cells Moderate per lpf (None-Few) H 05/08/19 09:20 Diabetes panel 05/08/19 05/09/19 Range/Units 08:05 05:52 Sodium 140 142 (136-145) mEq/L Potassium 3.8 4.0 (3.5-5.1) mEq/L Chloride 102 109 H (98-107) mEq/L Carbon Dioxide 25 23 (23-29) mEq/L BUN 12 14 (6-20) mg/dL Creatinine 0.88 0.72 (0.70-1.30) mg/dL Glucose 133 H 88 (70-105) mg/dL Calcium 9.9 8.3 L (8.6-10.3) mg/dL AST 12 L (13-39) Units/L ALT 15 (7-52) Units/L Alkaline Phosphatase 137 H (34-104) Units/L Albumin 4.6 (3.5-5.7) g/dL Calcium panel 05/08/19 05/09/19 Range/Units 08:05 05:52 Calcium 9.9 8.3 L (8.6-10.3) mg/dL Phosphorus 2.8 (2.7-4.5) mg/dL Albumin 4.6 (3.5-5.7) g/dL Pituitary panel 05/08/19 05/09/19 Range/Units 08:05 05:52 Sodium 140 142 (136-145) mEq/L Potassium 3.8 4.0 (3.5-5.1) mEq/L Chloride 102 109 H (98-107) mEq/L Carbon Dioxide 25 23 (23-29) mEq/L BUN 12 14 (6-20) mg/dL Creatinine 0.88 0.72 (0.70-1.30) mg/dL Glucose 133 H 88 (70-105) mg/dL Calcium 9.9 8.3 L (8.6-10.3) mg/dL Adrenal panel 05/08/19 05/09/19 Range/Units 08:05 05:52 Sodium 140 142 (136-145) mEq/L Potassium 3.8 4.0 (3.5-5.1) mEq/L Chloride 102 109 H (98-107) mEq/L Carbon Dioxide 25 23 (23-29) mEq/L BUN 12 14 (6-20) mg/dL Creatinine 0.88 0.72 (0.70-1.30) mg/dL Glucose 133 H 88 (70-105) mg/dL Calcium 9.9 8.3 L (8.6-10.3) mg/dL Total Bilirubin 0.9 (0.3-1.0) mg/dL AST 12 L (13-39) Units/L ALT 15 (7-52) Units/L Alkaline Phosphatase 137 H (34-104) Units/L Albumin 4.6 (3.5-5.7) g/dL All other labs normal. - Imaging CT scan - abdomen: report reviewed, image reviewed CT scan - pelvis: report reviewed, image reviewed - Attending Attestation I have personally performed a face to face evaluation on this patient. I have reviewed and agree with the care plan. History and Exam by me shows:
[2019-05-08] MEDS: 0.9 % Sodium Chloride 1,000 ML IVC SCH ×2 (14:18→22:31)
[2019-05-08] MEDS: Pantoprazole 40 MG VIAL IVP SCH (14:18)
[2019-05-08] MEDS: Acetaminophen IV 1,000 MG/100 ML INFUS..BTL IVPB SCH (16:27)
[2019-05-08] MEDS: Nicotine 14 MG PATCH.TD24 TD SCH (20:16)
[2019-05-09] MEDS: Acetaminophen IV 1,000 MG/100 ML INFUS..BTL IVPB SCH ×3 (00:28→11:53)
[2019-05-09 06:19] LABS: Basophils % 0.2 %; Eosinophils # 0.4 K/mcL (0.0-0.6); Eosinophils % 4.9 %; Hematocrit 40.7 % (37.5-50.1); Hemoglobin 13.2 g/dL (12.9-16.9); Immature Granulocytes % 0.5 % (0-4); Lymphocytes % 24.4 %; Mean Corpuscular HGB Conc 32.4 g/dL (31.6-35.5); Mean Corpuscular Hemoglobin 31.1 pg (28.0-33.3); Mean Corpuscular Volume 95.8 fL (83.0-100.0); Monocytes # 0.6 K/mcL (0.0-1.3); Monocytes % 7.3 %; Neutrophils # 5.1 K/mcL (1.6-8.9); Platelet Count 172 K/mcL (140-400); Red Blood Count 4.25 M/mcL (4.19-5.50); Red Cell Distribution Width 13.8 % (11.5-14.5); Segmented Neutrophils % 62.7 %; White Blood Count 8.2 K/mcL (4.3-11.1)
[2019-05-09] MEDS: 0.9 % Sodium Chloride 1,000 ML IVC SCH (06:21)
[2019-05-09 06:27] LABS: Prothrombin Time 11.5 Seconds (9.4-12.1)
[2019-05-09 06:42] LABS: BUN/Creatinine Ratio 19 (6-26); Blood Urea Nitrogen 14 mg/dL (6-20); Calcium 8.3 mg/dL (8.6-10.3); Carbon Dioxide 23 mEq/L (23-29); Chloride 109 mEq/L (98-107); Glucose 88 mg/dL (70-105); Osmolality,Calculated 294 (280-300); Phosphorous 2.8 mg/dL (2.7-4.5); Sodium 142 mEq/L (136-145); eGFR For African Americans > 60 (> 60); eGFR For Non-African Americans > 60 (> 60)
[2019-05-09] MEDS: Nicotine 14 MG PATCH.TD24 TD SCH (08:28)
[2019-05-09] MEDS: Pantoprazole 40 MG VIAL IVP SCH (08:28)
--- NOTE | 2019-05-09 09:54 | General Surgery Progress Note ---
<Janay Haines - Last Filed: 05/09/19 11:14> Date of Encounter: 05/09/19 Time of Encounter: 09:15 - Assessment and Plan (1) Abnormal CT of the abdomen Status: Acute Exam is not consistent with the small bowel obstruction. He does report constipation and requests treatment. MiraLAX daily was started yesterday. His last bowel movement was Wednesday. He does endorse passing flatus today. He appears non-toxic and is in no pain. He states he is hungry. He is afebrile and his white blood cell count has normalized. His abdomen is nondistended and nontender. We will advances diet to clear liquids and can advances tolerated. Continue to monitor Stop IVF when tolerating PO Will stop scheduled ofirmev PRN pain control OOB TID Ambulate TID IS GI and DVT prophylaxis (2) Smoking addiction Status: Acute Nicotine patch pulm toileting (3) Slow transit constipation Status: Acute Daily MiraLAX until having daily bowel movements that are mashed potatoes consistency. Then decrease MiraLAX to every other day Until bowel movements continuous the same. Decrease to as needed. Avoid stimulant laxatives. Increase fiber via psyllium caplets (2 caplets twice daily) or Benefiber (1 scoop twice daily). Increase water intake (at minimum 64 ounces daily) Subjective Patient reports: no new complaints, feels better, pain is less, voiding w/o difficulty, flatus, no bowel movement, afebrile Objective Vital Signs - Last 8 Hours Temp Pulse Resp BP Pulse Ox 05/09/19 08:30 95 05/09/19 07:11 97.7 F 67 20 131/80 95 05/09/19 03:34 98.1 F 71 14 123/74 95 Intake and Output 05/08/19 05/09/19 05/09/19 23:59 07:59 15:59 Intake Total 1100 / 1100 1200 / 1200 0 / 1200 Output Total 0 / 0 0 / 0 Balance 1100 / 1100 1200 / 1200 0 / 1200 Intake: IV Fluids 1100 / 1100 1200 / 1200 0.9 % Sodium Chloride 1,000 ML 1000 / 1000 1000 / 1000 @ 125 mls/hr IVC .Q8H COUNTS INCLUDE 234 BEDS AT THE [facility] Rx#: [id number] Ofirmev 1,000 mg/100 ml 1,000 100 / 100 200 / 200 mg In 100 ml @ 400 mls/hr IVPB Q6HR COUNTS INCLUDE 234 BEDS AT THE [facility] Rx#:[id number] Oral 0 / 0 Output: Urine 0 / 0 0 / 0 Other: Weight 65.1 kg Patient Weight 05/09/19 23:59 Weight 65.1 kg - General physical appearance no distress, no pain, other (sitting upright in chair at bedside with feet propped up on bed) - Eyes normal ocular movement - ENT atraumatic, normocephalic - Neck Neck exam: trachea midline - Respiratory normal expansion, normal respiratory effort - Cardiovascular Cardiovascular exam: Present: RRR - Abdomen Abdomen: Present: bowel sounds present, soft, non tender, surgical scars (healed). Absent: tympanic, distended, guarding - Integumentary no rash - Neurologic normal sensation - Musculoskeletal normal posture - Psychiatric oriented to time, oriented to person, oriented to place, speech is normal, memory intact - Labs 05/09/19 05:52 05/09/19 05:52 Diabetes panel 05/09/19 Range/Units 05:52 Sodium 142 (136-145) mEq/L Potassium 4.0 (3.5-5.1) mEq/L Chloride 109 H (98-107) mEq/L Carbon Dioxide 23 (23-29) mEq/L BUN 14 (6-20) mg/dL Creatinine 0.72 (0.70-1.30) mg/dL Glucose 88 (70-105) mg/dL Calcium 8.3 L (8.6-10.3) mg/dL Calcium panel 05/09/19 Range/Units 05:52 Calcium 8.3 L (8.6-10.3) mg/dL Phosphorus 2.8 (2.7-4.5) mg/dL Pituitary panel 05/09/19 Range/Units 05:52 Sodium 142 (136-145) mEq/L Potassium 4.0 (3.5-5.1) mEq/L Chloride 109 H (98-107) mEq/L Carbon Dioxide 23 (23-29) mEq/L BUN 14 (6-20) mg/dL Creatinine 0.72 (0.70-1.30) mg/dL Glucose 88 (70-105) mg/dL Calcium 8.3 L (8.6-10.3) mg/dL Adrenal panel 05/09/19 Range/Units 05:52 Sodium 142 (136-145) mEq/L Potassium 4.0 (3.5-5.1) mEq/L Chloride 109 H (98-107) mEq/L Carbon Dioxide 23 (23-29) mEq/L BUN 14 (6-20) mg/dL Creatinine 0.72 (0.70-1.30) mg/dL Glucose 88 (70-105) mg/dL Calcium 8.3 L (8.6-10.3) mg/dL Consult Discharge Plan - Plan Instructions: Constipation (DC), High Fiber Diet (DC) Additional Instructions: Daily MiraLAX until having daily bowel movements that are mashed potatoes consistency. Then decrease MiraLAX to every other day Until bowel movements continuous the same. Decrease to as needed. Avoid stimulant laxatives. Increase fiber via psyllium caplets (2 caplets twice daily) or Benefiber (1 scoop twice daily). Increase water intake (at minimum 64 ounces daily) Referrals: Alicja Aguila CNP [Primary Care Provider] - 05/16/19 1:00 pm Prescriptions: Wheat Dextrin [Benefiber] 1 each PO BID #60 powd.pack Polyethylene Glycol 3350 [MiraLAX Powder Bulk 17.9 Oz] 1 scoop PO DAILY #510 gm <Caitie Guaman - Last Filed: 05/12/19 14:53> Date of Encounter: 05/09/19 - Assessment and Plan (1) Abnormal CT of the abdomen Status: Acute tolerating clears, advance as able passing flatus, had bm ok to dc home (2) Smoking addiction Status: Chronic (3) Slow transit constipation Status: Chronic (4) Leukocytosis Status: Resolved Qualifiers: Leukocytosis type: unspecified Qualified Code(s): D72.829 - Elevated white blood cell count, unspecified Subjective Patient reports: feels better, tolerating liquids well, voiding w/o difficulty, flatus, no bowel movement, afebrile Objective - General physical appearance well developed, well nourished, no distress, no pain - Eyes normal ocular movement - ENT normal mucosa - Neck Neck exam: trachea midline - Respiratory normal expansion, clear to auscultation - Cardiovascular Cardiovascular exam: Present: RRR - Abdomen Abdomen: Present: bowel sounds present, soft, non tender Hernia: incisional - Integumentary no rash - Neurologic normal coordination, normal sensation - Musculoskeletal normal posture - Psychiatric oriented to time, oriented to person, oriented to place, speech is normal, memory intact - Labs 05/09/19 05:52 05/09/19 05:52 - Attending Attestation I have personally performed a face to face evaluation on this patient. I have re viewed and agree with the care plan. History and Exam by me shows:
[2019-05-09] MEDS ORDERED: Ibuprofen 600 MG TABLET PO PRN (11:19)
--- NOTE | 2019-05-09 15:33 | Discharge Summary ---
Date of Encounter: 05/09/19 Time of Encounter: 15:34 - Discharge Diagnosis (1) Abnormal CT of the abdomen Priority: Primary Status: Acute (2) Smoking addiction Priority: Secondary Status: Chronic (3) Slow transit constipation Priority: Secondary Status: Chronic General Surgery Exam Initial Vital Signs Temp Pulse Resp BP Pulse Ox 97.9 F 95 16 179/64 99 05/08/19 07:22 05/08/19 07:22 05/08/19 07:22 05/08/19 07:22 05/08/19 07:22 - Hospital Course Hospital course: Mr. Covarrubias is a 59 year old male who presented on 05/08/[address] with abdominal pain. A [address] of the abdomen and pelvis was obtained which noted findings concerning for possible small bowel obstruction. His exam was not consistent with a small bowel obstruction. He was treated for constipation versus gastroenteritis. On 05/09/2019 he had a large bowel movement and states his symptoms have completely resolved. He is tolerating his diet without nausea or vomiting, is afebrile, and is ambulating and voiding. We will begin discharge planning to home with a follow-up with his PCP in 2 weeks. He is recommended to follow a high-fiber diet and follow a bowel regimen. If he has return of symptoms he is advised to return to the hospital. Time spent discussing smoking cessation with patient: 3 to 10 minutes - Time Spent with Patient Total time spent providing and/or coordinating discharge services: - Discharge Medications Prescriptions: New Wheat Dextrin [Benefiber] 1 each PO BID #60 powd.pack Polyethylene Glycol 3350 [MiraLAX Powder Bulk 17.9 Oz] 1 scoop PO DAILY #510 gm Home Medications: Polyethylene Glycol 3350 [MiraLAX Powder Bulk 17.9 Oz] 1 scoop PO DAILY #510 gm 05/09/19 [Rx] Wheat Dextrin [Benefiber] 1 each PO BID #60 powd.pack 05/09/19 [Rx] Allergies/Adverse Reactions: Allergy/AdvReac Type Severity Reaction Status Date / Time No Known Allergies Allergy Verified 05/09/19 09:35 Date of admission: 05/08/19 10:58 Primary care physician: Alicja Aguila CNP Discharging clinician: Caitie Guaman Anticipated date of discharge: 05/09/19 Labs on day of discharge: Labs from last 24 hours 05/09/19 05/09/1919 05:52 05:52 05:52 WBC 8.2 D RBC 4.25 Hgb 13.2 D Hct 40.7 MCV 95.8 MCH 31.1 MCHC 32.4 RDW 13.8 Plt Count 172 MPV 10.0 Immature Gran % 0.5 Seg Neutrophils % 62.7 Lymphocytes % 24.4 Monocytes % 7.3 Eosinophils % 4.9 Basophils % 0.2 Neutrophils # 5.1 Lymphocytes # 2.0 Monocytes # 0.6 Eosinophils # 0.4 Basophils # 0.0 PT 11.5 INR 1.0 Sodium 142 Potassium 4.0 Chloride 109 H Carbon Dioxide 23 BUN 14 Creatinine 0.72 Est GFR ( Amer) > 60 Est GFR (Non-Af Amer) > 60 BUN/Creatinine Ratio 19 Glucose 88 Calculated Osmolality 294 Calcium 8.3 L Phosphorus 2.8 Magnesium 2.0 - Impressions ITS Impressions Abdomen/Pelvis CT 05/08/19 08:14 IMPRESSION: 1. Findings are concerning for small bowel obstruction. Transition point is felt to be in the region of the right anterior abdominal wall where multiple small bowel loops are adherent to the right anterior abdominal wall. Inflammatory stranding and wall thickening involving dilated small bowel loops in the right side of the abdomen. Correlation with lactate levels is recommended as secondary ischemic process difficult to entirely exclude. 2. Small fat containing left inguinal hernia. 3. Reanastomosis in the rectosigmoid colon. Mild scattered colonic diverticulosis. 4. Old granulomatous disease. 5. Small hiatal hernia. Critical results were called by Dr. Roberto Tesfaye MD to Dr. Yeh On 05/08/2019 at 08:49. D/ / 05/08/2019 08:59:01 Roberto Tesfaye MD / Naila Harvey Interpreting Provider: Roberto Tesfaye MD - Patient Status Disposition: Home, Self-Care Condition: Fair Functional capacity at discharge: independent ambulation Overall status at discharge: patient is progressing back to baseline - Discharge Instructions Instructions: Constipation (DC), High Fiber Diet (DC) Follow Up With: Alicja Aguila SALES AND DIST[employer]BUTION CLERK [Primary Care Provider] - Additional Instructions: Daily MiraLAX until having daily bowel movements that are mashed potatoes consistency. Then decrease MiraLAX to every other day Until bowel movements continuous the same. Decrease to as needed. Avoid stimulant laxatives. Increase fiber via psyllium caplets (2 caplets twice daily) or Benefiber (1 scoop twice daily). Increase water intake (at minimum 64 ounces daily) - Diet and Activity Activity: increase activity as tolerated Diet: advance to your usual diet (high-fiber diet)
[2019-05-09 15:43] VITALS: BP 167/86
== END 2019-05-09 16:27 | disposition home or self-care (01) | DRG 392 ==
LOC: EMEROOARM 07:14 → 3BNU 07:14
PROVIDERS: ADMIT Surgery; ATTEND Surgery